=== PATIENT | male | born 1950 | race Caucasian/White ===

== ENCOUNTER 2017-04-04 20:45 | Outpatient (CLI) | payer MEDICARE, OTHER | END 2017-04-05 06:45 | disposition home or self-care (01) | DX: G47.33 Obstructive sleep apnea (adult) (pediatric) (principal) ==

== ENCOUNTER 2018-01-07 06:07 | Outpatient (CLI) | payer MEDICARE, OTHER ==
[~2018-01-07] VITALS: Ht 162.6 cm; Wt 99.8 kg
[2018-01-07] MEDS ORDERED: TAMS0.4C2 PO (16:16)
[2018-01-07] MEDS ORDERED: LISI10TA2 PO (16:16)
[2018-01-07] MEDS ORDERED: DICL75TA2 PO (16:16)
[2018-01-07] MEDS ORDERED: DILT300C57 PO (16:16)
[2018-01-07] MEDS ORDERED: MULT-35 PO (16:16)
== END 2018-01-07 16:21 ==
LOC: PREOP 06:07
PROVIDERS: ATTEND Surgery
DX: Z01.818 Encounter for other preprocedural examination (principal); R19.5 Other fecal abnormalities

== ENCOUNTER 2018-01-13 11:16 | Day surgery (SDC) | payer MEDICARE, OTHER ==
[~2018-01-13] VITALS: Ht 162.6 cm; Wt 99.8 kg
[~2018-01-13 11:16] MED LIST: DICL75TA2 PO; DILT300C57 PO; LISI10TA2 PO; MULT-35 PO; TAMS0.4C2 PO
[2018-01-13] MEDS ORDERED: NS IV 500 ML 500 ML IV ONE (12:15)
[2018-01-13 12:30] VITALS: BP 150/79
[2018-01-13] MEDS ORDERED: fentaNYL INJECTION 100 MCG/2 ML AMP ONE (12:48)
[2018-01-13] MEDS ORDERED: MIDAZOLAM 2 MG/2 ML (VERSED) VIAL ONE ×3 (12:48→12:49)
[2018-01-13] MEDS: MIDAZOLAM 2 MG/2 ML (VERSED) VIAL IVP PRN ×3 (13:24→13:30)
[2018-01-13] MEDS: fentaNYL INJECTION 100 MCG/2 ML AMP IVP PRN ×2 (13:25→13:28)
--- NOTE | 2018-01-13 13:44 | Endo Procedure Record ---
Endo Procedure Report Date of Procedure Last Colonoscopy: No Jan 13, 2018 Surgeon (s) KELLY CARROLL MD Post Procedure/Op Diagnosis Anal skin tags. Internal hemorrhoids. Very few sigmoid diverticula Procedure Performed Colonoscopy to cecum Description of Procedure Anesthesia Type: Conscious Sedation Specimen(s) collected/removed none Description of the Procedure Indication for the procedure: This gentleman was found to have a positive cologuard test. Therefore, he came in for colonoscopy. He denied any family history of colon cancer. Informed consent was obtained after reviewing the procedure in detail. Description of the procedure: He was placed in left lateral decubitus position and his vital signs were monitored. Conscious sedation was achieved using Versed and fentanyl. Examination of the perianal area revealed some large anal skin tags. Digital examination was otherwise unremarkable. The colonoscope was then introduced into the rectum and advanced all the way up to the cecum The quality of bowel preparation was rather suboptimal. I was however able to irrigate the mucosa and complete the examination. The scope was then withdrawn slowly and the mucosa examined in a systematic fashion. Findings: 1. Internal hemorrhoids and anal skin tags 2. Very few sigmoid diverticula. No polyps were found He tolerated the procedure well and was taken back to the nursing area in a stable condition. Impression: Positive Colocort test. No polyps found. Incidentally anal skin tags and internal hemorrhoids. KELLY CARROLL MD Jan 13, 2018 1:43 pm
--- NOTE | 2018-01-13 13:47 | Conscious Sedation/ASA ---
Conscious Sedation Pre-Proced Time Reviewed: 12:05 ASA Class: 2 Airway Mallampati Classification: (wichita appropriate class) I. II. III, IV Lungs Heart ASA score ASA 1: a normal healthy patient ASA 2: a patient with a mild systemic disease (mid diabetes, controlled hypertension, obesity ASA 3: a patient with a severe systemic disease that limits activity (angina , COPD, prior Myocardial infarction) ASA 4: a patient with an incapacitating disease that is a constant threat to life (CHF, renal failure) ASA 5: a moribund patient not expected to survive 24 hrs. (ruptured aneurysm) ASA 6: a declared brain patient whose organs are being harvested. For emergent operations, add the letter E after the classification Grade 2 Sedation Plan: Discussed options with patient/fam Note The patient is an appropriate candidate to undergo the planned procedure, sedation, and anesthesia. The patient immediately re-assessed prior to indication. KELLY CARROLL MD Jan 13, 2018 1:47 pm
--- NOTE | 2018-01-13 13:47 | History & Physicial ---
History of Present Illness History of Present Illness Reason for visit/HPI to undergo colonoscopy on the basis of a positive Cologuard test. Date of Admission 01/13/18 Date Seen by Provider: Jan 13, 2018 Time Seen by Provider: 12:10 I consulted on this patient on 01/13/18 13:44 Attending Physician Kelly Carroll MD Admitting Physician Radha Greene MD Consult Allergies and Home Medications Allergies Coded Allergies: No Known Drug Allergies (Unverified , 01/07/18) Home Medications Diclofenac Sodium 75 Mg Tablet.dr, 75 MG PO BID, (Reported) Diltiazem HCl 300 Mg Cap.er.24h, 300 MG PO DAILY, (Reported) Lisinopril 10 Mg Tablet, 10 MG PO DAILY, (Reported) Multivitamin 1 Each Tablet, 1 EACH PO DAILY, (Reported) Tamsulosin HCl 0.4 Mg Cap.er.24h, 0.4 MG PO DAILY, (Reported) Patient Home Medication List Home Medication List Reviewed: Yes Past Emmvkhd-Koaccb-Bfwnud Hx Patient Social History Marrital Status: Employed/Student: retired Recent Foreign Travel: No Contact w/other who traveled: No Recent Hopitalizations: No Seasonal Allergies Seasonal Allergies: No Surgeries Yes Tonsillectomy Respiratory No Currently Using CPAP: Yes Cardiovascular Yes Hypertension Neurological No Reproductive System Hx Reproductive Disorders: No Sexually Transmitted Disease: No HIV/AIDS: No Gastrointestinal Yes Chronic Diarrhea Musculoskeletal Yes Arthritis Endocrine History of Endocrine Disorders: No HEENT Loss of Vision: Bilateral Hearing Impairment: Hard of Hearing Cancer No Blood Transfusions Adverse Reaction to a Blood Tr: No (HAS BLOOD WITH NO REACTION) Constitutional: no symptoms reported EENTM: no symptoms reported Respiratory: no symptoms reported Cardiovascular: no symptoms reported Gastrointestinal: no symptoms reported Genitourinary: no symptoms reported Musculoskeletal: joint pain Skin: no symptoms reported Psychiatric/Neurological: No Symptoms Reported Physical Exam Vital Signs Capillary Refill : General Appearance: No Apparent Distress Respiratory: Lungs Clear Cardiovascular: Regular Rate, Rhythm Gastrointestinal: Non Tender, Soft Rectal: Deferred Extremity: Normal Inspection Neurologic/Psychiatric: Oriented x3 Skin: Warm/Dry Assessment/Plan Assessment and Plan gentleman to undergo colonoscopy Problems: Admission Diagnosis Admission Status: Other (Outpt Proc) KELLY CARROLL MD Jan 13, 2018 1:47 pm
--- NOTE | 2018-01-13 13:48 | Discharge Inst-Simple/Standard ---
Discharge Inst-Standard Discharge Medications New, Converted or Re-Newed RX: Other Patient Instructions/Follow Up Plan of Care/Instructions/FU: Follow-up with his primary Activity as Tolerated: Yes Discharge Diet: No Restrictions KELLY CARROLL MD Jan 13, 2018 1:48 pm
[2018-01-13 14:10] VITALS: BP 115/62
[2018-01-13 14:40] VITALS: BP 132/68
[2018-01-13 15:00] VITALS: BP 132/68
== END 2018-01-13 15:00 | disposition home or self-care (01) ==
LOC: ENDO 11:16
PROVIDERS: ATTEND Surgery
DX: K64.8 Other hemorrhoids (principal); K57.30 Diverticulosis of large intestine without perforation or abscess without bleeding; K64.4 Residual hemorrhoidal skin tags; I10 Essential (primary) hypertension

== ENCOUNTER → 2019-11-13 | Outpatient (CLI) | payer MEDICARE, OTHER ==
[~2019-11-13] MED LIST changes: -DILT300C57 PO; +DILT300C71 PO
== END ==
LOC: CARD 11:38
PROVIDERS: ATTEND Internal Medicine Cardiovascular Disease
DX: I10 Essential (primary) hypertension (principal); E78.2 Mixed hyperlipidemia; G47.33 Obstructive sleep apnea (adult) (pediatric); E66.9 Obesity, unspecified
CPT/HCPCS: 93306

== ENCOUNTER → 2021-07-21 | Outpatient (CLI) | payer MEDICARE, OTHER ==
[~2021-07-21] MED LIST changes: -LISI10TA2 PO; +LISI10TA25 PO
== END ==
LOC: LAB FS 10:20
PROVIDERS: ATTEND Orthopaedic Surgery
DX: Z01.812 Encounter for preprocedural laboratory examination (principal); Z20.822 Contact with and (suspected) exposure to COVID-19
CPT/HCPCS: 87635

== ENCOUNTER 2021-07-28 10:09 | Inpatient (IN) | payer MEDICARE, OTHER ==
[~2021-07-28] VITALS: Ht 160 cm; Wt 101.9 kg
[2021-07-28] MEDS ORDERED: LOPERAMIDE 2 MG (IMODIUM) TABLET PO PRN (10:45)
[2021-07-28] MEDS ORDERED: guaiFENesin/CODEINE (ROBITUSSIN AC) 10ML UDC PO PRN (10:45)
[2021-07-28] MEDS ORDERED: ONDANSETRON 4 MG (ZOFRAN) ORAL DISSOLVE TAB PO PRN (10:45)
[2021-07-28] MEDS ORDERED: LACTULOSE SYRUP 10GM/15ML (ENULOSE) 30ML UDC PO PRN (10:45)
[2021-07-28] MEDS ORDERED: BISACODYL 10 MG SUPP (DULCOLAX) PR PRN (10:45)
[2021-07-28] MEDS ORDERED: diphenhydrAMINE 25 MG TAB (BENADRYL) PO PRN (10:45)
[2021-07-28] MEDS ORDERED: ALPRAZolam 0.25 MG (XANAX) TAB PO PRN (10:45)
[2021-07-28] MEDS ORDERED: FLEET ENEMA ADULT 1 EA BTL PR PRN (10:45)
[2021-07-28] MEDS ORDERED: CALCIUM CARBONATE 500 MG (TUMS) TAB.CHEW PO PRN (10:45)
[2021-07-28] MEDS ORDERED: DOCUSATE SODIUM 100 MG (COLACE) CAP PO PRN (10:45)
--- NOTE | 2021-07-28 10:46 | PM&R Post Admission Assessment ---
PM&R HP Date of Visit: Jul 28, 2021 Time of Visit: 11:15 History of Present Illness Chief complaint: Lumbar spine surgery with subsequent debility History of present illness: This is a 71-year-old white male On License Of [facility] after uncomplicated spine surgery by Dr. Martinez. He did have urinary retention acute on chronic postop so after attempts for spontaneous voiding a Singer catheter was left indwelling with urology appointment next at 0945. Patient does have sleep apnea and appeared to be at risk for respiratory depression but upon assessment at [facility] where he was admitted for observation overnight septic work-up was negative along with ABG was normal without CO2 retention. No pneumonia on x-ray and no obstruction on abdominal films. He did have evidence of an early ileus which resolved this morning upon arrival to the rehab unit. We will advance his diet as tolerated. IV fluid has been very helpful in reversing the volume depletion and acute kidney injury with BUN of 47 creatinine 1.8 now its normal today. Prior level of functioning was ambulatory without assistive devices. We will continue medication for urinary retention and likely do voiding trial this weekend. Early UTI diagnosed at [facility] placed on Rocephin and transition to Omnicef. CC: Debility and mental confusion following back surgery HPI: 71 yo male w/ hx of HTN and arthritis presented to the rehab floor following back surgery on 07/24. Pt had L2-5 spinal fusion with human allograft placement for spinal stenosis and radiculopathy. Pt had been discharged from the hospital two days later and was ambulating well, with noted urinary retention. However, over the next day family members noted significant mental confusion and deterioration of mobility. The pt was admitted to [facility] yesterday before being admitted to rehab today. Pt is no longer mentally confused, follows PT commands well and seems to be interacting appropriately. Pt still in pain (02/15). PMH: HTN, chronic diarrhea, arthritis, hx spinal stenosis and radiculopathy, C PAP for JOEY PSH: back surgery (2008), carpal tunnel release, tonsillectomy, L2-5 spinal fusion with cages and allografts placed (07/24/21), CPAP for JOEY, bilat hip arthroplasty ALL: adverse rxn to morphine (suspected source of postop confusion) Meds: Item Value Date Time Diltiazem HCl 300 mg 07/29/21 0900 (Cardizem Cd 24 DAILY/PO Hr Capsule) Tamsulosin HCl 0.4 mg 07/28/21 2100 (Flomax Capsule) BID/PO Cefdinir 300 mg 07/28/21 2100 (Omnicef Capsule) BID/PO Atorvastatin 40 mg 07/28/21 2100 Calcium HS/PO (Lipitor Tablet) Senna 1 ea 07/28/21 2100 (Senokot S BID/PO Tablet) Polyethylene 17 gm 07/28/21 2100 Glycol BID/PO (Miralax 17 Gm Packet) Docusate Sodium 100 mg 07/28/21 2100 (Colace Capsule) BID/PO Phenazopyridine 200 mg 07/28/21 1800 HCl BID WITH MEALS/PO (Pyridium Tablet) Bethanechol 25 mg 07/28/21 1600 Chloride ACHS/PO (Urecholine Tablet) Acetaminophen 650 mg 07/28/21 1230 (Tylenol Tablet) Q4H PRN/PO Ondansetron HCl 4 mg 07/28/21 1045 (Zofran Oral Q6H PRN/PO Dissolve Tablet) Melatonin 3 mg 07/28/21 1045 (Melatonin HS PRN/PO Tablet) Loperamide HCl 2 mg 07/28/21 1045 (Imodium Tablet) PRN PRN/PO Guaifenesin/ 10 ml 07/28/21 1045 Codeine Phosphate Q4H PRN/PO (Robitussin Ac (Codeine) Syrup) Sodium 1 ea 07/28/21 1045 Biphosphate/ BID PRN/MI Sodium Phosphate (Fleet Enema Adult) Lactulose 10 gm 07/28/21 1045 (Enulose Oral BID PRN/PO Solution) Bisacodyl 10 mg 07/28/21 1045 (Dulcolax DAILY PRN/MI Suppository) Docusate Sodium 100 mg 07/28/21 1045 (Colace Capsule) BID PRN/PO Diphenhydramine 25 mg 07/28/21 1045 HCl Q6H PRN/PO (Benadryl Tablet) Calcium Carbonate 500 mg 07/28/21 1045 (Antacid TID PRN/PO Chewable Tablet) Alprazolam 0.25 mg 07/28/21 1045 (Xanax Tablet) Q8H PRN/PO 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; ; non-smoker; some alcohol use; no recreational drug use FH: mother- heart dx and diabetes; 2 healthy daughters; healthy brother ROS: no SOB; no chest pain, not feeling feverish, back and bilat hip pain Exam: alert and oriented x3; pain 5/5; heart RRR, lungs CTAB Images: N/A Labs: N/A Assessment: Debility following L2-L5 fusion with allograft and cage placement Pain following the back surgery (back and hip; 5/5 when asked) HTN (165/75) Urinary retention Plan: PT/OT for recuperation Tylenol for pain Continue Cefdinir for postop infxn prophylaxis Continue Tamsulosin for postop urinary retention Keep in touch w Dr. 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) Alcohol Use: Occasionally Uses Smoking Status: Former Smoker Recent Hopitalizations: No Seasonal Allergies Seasonal Allergies: No Past Medical History Surgeries: Orthopedic, Tonsillectomy Respiratory: Sleep Apnea Currently Using CPAP: Yes Cardiac: Hypertension Reproductive: No Sexually Transmitted Disease: No HIV/AIDS: No Genitourinary: Benign Prostatic Hyperpl Gastrointestinal: Chronic Diarrhea Musculoskeletal: Arthritis Loss of Vision: Bilateral Hearing Impairment: Hard of Hearing Adverse Reaction to Blood Del[place]: No (HAS BLOOD WITH NO REACTION) PM&R Allergy/Meds/Data Review Allergies Coded Allergies: morphine (Verified Allergy, Unknown, 07/28/21) LISTED ON JOSR DISCHARGE ORDERS Home Medications Scheduled Atorvastatin Calcium (Atorvastatin Calcium), 40 MG PO HS, (Reported) Cefdinir (Cefdinir), 300 MG PO BID, (Reported) Diltiazem HCl (Diltiazem 24Hr Cd), 300 MG PO DAILY, (Reported) Lactulose (Lactulose), 30 ML PO TID, (Reported) Phenazopyridine HCl (Pyridium), 200 MG PO BID, (Reported) Polyethylene Glycol 3350 (Miralax), 17 GM PO TID, (Reported) Sennosides/Docusate Sodium (Senna Plus 8.6-50 mg Tablet), 1 EACH PO DAILY, (Reported) Tamsulosin HCl (Flomax), 0.4 MG PO BID, (Reported) [Bethanechol], 25 MG PO QID, (Reported) Scheduled PRN Hydrocodone/Acetaminophen (Hydrocodone-Acetamin 10-325 mg), 2 EACH PO Q4H PRN for PAIN-MODERATE (5-7), (Reported) Discontinued Medications Diclofenac Sodium (Diclofenac Sodium), 75 MG PO BID, (Reported) Discontinued Reason: Duplicate Order Diltiazem HCl (Diltiazem 24Hr Cd), 300 MG PO DAILY, (Reported) Discontinued Reason: Duplicate Order Lisinopril (Lisinopril), 10 MG PO DAILY, (Reported) Discontinued Reason: Duplicate Order Multivitamin (Daily Multiple Vitamin), 1 EACH PO DAILY, (Reported) Discontinued Reason: Duplicate Order Tamsulosin HCl (Tamsulosin HCl), 0.4 MG PO DAILY, (Reported) Discontinued Reason: Duplicate Order Current Medications Current Medications Reviewed Review of Systems Constitutional: see HPI, malaise, weakness EENTM: no symptoms reported Respiratory: no symptoms reported Cardiovascular: no symptoms reported Gastrointestinal: constipation Genitourinary: decreased output, other (Retention) Musculoskeletal: back pain Skin: no symptoms reported Psychiatric/Neurological: No Symptoms Reported All Other Systems Reviewed Negative Unless Noted: Yes Physical Exam Physical Exam Vital Signs Capillary Refill : Height, Weight, BMI Height: 5'4.00" Weight: 220lbs. 0.0oz. 99.138764gk; 37.8 BMI Method: General Appearance: No Apparent Distress, WD/WN, Chronically ill, Obese Eyes: Bilateral Eye Normal Inspection, Bilateral Eye PERRL HEENT: PERRL/EOMI, Normal ENT Inspection, Pharynx Normal Neck: Full Range of Motion, Normal Inspection, Non Tender, Supple, Carotid Bruit Respiratory: Chest Non Tender, Lungs Clear, Normal Breath Sounds, No Accessory Muscle Use, No Respiratory Distress Cardiovascular: Regular Rate, Rhythm, No Edema, No Gallop, No JVD, No Murmur, Normal Peripheral Pulses Gastrointestinal: Normal Bowel Sounds, No Organomegaly, No Pulsatile Mass, Non Tender, Soft Back: Normal Inspection, No CVA Tenderness, No Vertebral Tenderness Extremity: Normal Capillary Refill, Normal Inspection, Normal Range of Motion, Non Tender, No Calf Tenderness, No Pedal Edema Neurologic/Psychiatric: Alert, Oriented x3, 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 Norm as Tested, Abnormal Gait, Depressed Affect, Motor Weakness (Lower extremities 4/5) Skin: Normal Color, Warm/Dry Lymphatic: No Adenopathy PM&R Medical Assessment & Plan REHAB/MEDICAL ASSESSMENT AND PLAN: REHAB IMPAIRMENT GROUP: Lumbar stenosis ETIOLOGIC DIAGNOSIS: Lumbar stenosis The comorbidities that impact the patients function and/or functional outcome by: JOEY on CPAP, obesity, early ileus, urinary retention requiring Singer, early UTI, acute kidney injury REHAB PLAN: The patient is being admitted to our comprehensive inpatient rehabilitation facility and can tolerate the intensity of service consisting of at least: 180 minutes of therapy a day, 5 out of 7 days a week Rehab treatment will consist of: PT and OT will focus on regaining function with the use of assistive devices and help regain independence in ADLs in order to return to independent living with The patient/family has a good understanding of our discharge process and will benefit from an interdisciplinary inpatient rehabilitation program. The patient has potential to make improvement and is in need of at least two of the following multidisciplinary therapies including but not limited to physical, occupational, speech, and prosthetics and orthotics. Additionally the patient will need services from respiratory, nutritional services, wound care, psychology, etc. (Customize this to each patient). Given the patients complex condition and risk of further medical complications, rehabilitation services cannot be safely or effectively provided at a lower level of care such as a long term facility. BARRIERS TO DISCHARGE: JOEY with urinary retention ESTIMATED LOS: 7 days DISPOSITION: Home with RELEVANT CHANGES SINCE PREADMISSION SCREENING: I have compared the patients medical and functional status at the time of the preadmission screening and there are: No changes PROGNOSIS: Good REHABILITATION GOALS: 1. PT and OT will focus on regaining function with the use of assistive devices and help regain independence in ADLs in order to return to independent living with All the above goals were reviewed with the patient and he/she is in agreement. By signing this document, I acknowledge that I have personally performed a full physical examination on this patient within 24 hours of admission to this inpatient rehabilitation facility and have determined the patient to be able to tolerate the above course of treatment at an intensive level for a reasonable period of time. I will be completing a detailed individualized Plan of Care for this patient by day #4 of the patients stay based upon the Preadmission Screen, the Post-Admission Evaluation, and the therapy evaluations. Admission Dx/Comorbidities: (1) Lumbar stenosis with neurogenic claudication ICD Codes: M48.062 - Spinal stenosis, lumbar region with neurogenic claudication (2) JOEY on CPAP ICD Codes: G47.33 - Obstructive sleep apnea (adult) (pediatric); Z99.89 - Dependence on other enabling machines and devices (3) Acute kidney injury ICD Codes: N17.9 - Acute kidney failure, unspecified (4) Dehydration ICD Codes: E86.0 - Dehydration (5) Ileus ICD Codes: K56.7 - Ileus, unspecified (6) Hypertension ICD Codes: I10 - Essential (primary) hypertension (7) Obesity ICD Codes: E66.9 - Obesity, unspecified Assessment/Plan Assessment and Plan Assess & Plan/Chief Complaint Assessment: Lumbar stenosis status post spine surgery on 07/24/[address] Martinez Acute on chronic urinary retention requiring indwelling catheter BPH Hypertension Status post acute kidney injury resolved with IV fluid at [facility] Altered mental status likely due to dehydration with pain medication Early ileus now resolved JOEY on CPAP High risk for respiratory depression and CO2 narcosis Plan: Inpatient rehab protocol Pain control Supportive care Bladder meds RHETT CAMPOS DO Jul 28, 2021 10:46
[2021-07-28] MEDS ORDERED: POLY17PO6 PO (11:23)
[2021-07-28] MEDS ORDERED: CEFD300C3 PO (11:23)
[2021-07-28] MEDS ORDERED: TMSL.4C PO ×2 (11:23)
[2021-07-28] MEDS ORDERED: PHEN-640 PO (11:23)
[2021-07-28] MEDS ORDERED: DILT300C51 PO ×2 (11:23)
[2021-07-28] MEDS ORDERED: BETHANECHOL PO ×2 (11:23)
[2021-07-28] MEDS ORDERED: SENN-259 PO (11:23)
[2021-07-28] MEDS ORDERED: ATOR40TA70 PO ×2 (11:23)
[2021-07-28] MEDS ORDERED: LACT10SO33 PO (11:23)
[2021-07-28] MEDS ORDERED: HYDR-3820 PO (11:23)
[2021-07-28 11:30] VITALS: BP 165/75
--- NOTE | 2021-07-28 11:59 | Physical Therapy Evaluation ---
PT Evaluation-General Medical Diagnosis Admission Date Jul 28, 2021 at 10:45 Medical Diagnosis: lumbar fusion L2-4 Onset Date: Jul 27, 2021 Therapy Diagnosis Therapy Diagnosis: impaired mobility, strength, endurance Height/Weight Height (Feet): 5 Height (Inches): 4.00 Weight (Pounds): 220 Weight (Ounces): 0.0 Referral Physician: Tabitha Gonzalez DO Reason for Referral: Evaluation/Treatment Medical History Additional Medical History Past Medical History Surgeries: Tonsillectomy Currently Using CPAP: Yes Cardiac: Hypertension Reproductive: No Sexually Transmitted Disease: No HIV/AIDS: No Gastrointestinal: Chronic Diarrhea Musculoskeletal: Arthritis Loss of Vision: Bilateral Hearing Impairment: Hard of Hearing Reviewed History: Yes Social History Home: Single Level Current Living Status: Spouse Entry Into Home: Stairs With Railing PT Steps Into Home: 2 Prior Prior Level of Function SCALE: Activities may be completed with or without assistive devices. 2-Imsvosmgzu-jzklfkr completes the activity by him/herself with no assistance from a helper. 5-Set-up or Clean-up Assistance-helper sets up or cleans up; patient completes activity. [place] assists only prior to or following the activity. 4-Supervision or Touching Assistance-helper provides verbal cues and/or touching/steadying and/or contact guard assistance as patient completes a ctivity. Assistance may be provided throughout the activity or intermittently. 3-Partial/Moderate Assistance-helper does LESS THAN HALF the effort. [place] lifts, holds or supports trunk or limbs, but provides less than half the effort. 2-Substantial/Maximal Assistance-helper does MORE THAN HALF the effort. [place] lifts or holds trunk or limbs and provides more than half the effort. 6-Wnhkivrii-skwtmk does ALL the effort. Patient does none of the effort to complete the activity. Or, the assistance of 2 or more helpers is required for the patient to complete the activity. If activity was not attempted, code reason: 7-Patient Refused. 9-Not Applicable-not attempted and the patient did not perform the activity before the current illness, exacerbation or injury. 10-Not Attempted due to Environmental Limitations-(lack of equipment, weather restraints, etc.). 88-Not Attempted due to Medical Conditions or Safety Concerns. Bed Mobility: 6 Transfers (B,C,W/C): 6 Gait: 6 Stairs: 6 Indoor Mobility (Ambulation): Independent Stairs: Independent PT Evaluation-Current Subjective Patient already in restroom pre tx, agrees to PT, has 8/10 pain in back, nurse notified. Will be co-treating with OT for part of tx due to poor patient mobility, strength, endurance, severe pain with activity, coordinate UE and LE with activity, safety and reduce risk of falls. Pt/Family Goals to be independent at home Objective Patient Orientation: Person, Confused (slight confusion), Place, Situation back brace ROM/Strength ROM Lower Extremities limited due to pain Strength Lower Extremities NT due to pain Sensory Vision: Wears Glasses Hearing: Impaired Sensation Right Lower Extremit: Intact Sensation Left Lower Extremity: Intact Transfers Roll Left & Right (QC): 3 Sit to Lying (QC): 3 Lying to Sitting/Side of Bed(Q: 3 Sit to Stand (QC): 4 Chair/Zgr-lv-Aoruq Xfer(QC): 4 Toilet Transfer (QC): 4 Car Transfer (QC): 3 Patient performs bed mobility and supine <-> sit mod assist, sit <-> stand and transfers CGA, car transfer mod assist. Patient needs simple cues for direction due to slight confusion. Cues for hand placement and positioning. Gait Does the Patient Walk?: Yes Mode of Locomotion: Walk Anticipated Mode of Locomotion: Walk Walk 10 feet (QC): 4 Walk 50 ft with 2 Turns(QC): 4 Walk 150 ft (QC): 88 Walking 10ft/uneven surface-QC: 88 Distance: 50'x2 Gait Assistive Device: FWW Comments/Gait Description Patient can ambulate 50' with a rolling walker with CGA (including 50' with at least 2 turns of 90 degrees). Patient cannot ambulate over an uneven surface at this time due to pain, and he slides his feet across the floor. He also keeps his walker too far in front and needs cues to keep it closer. Wheelchair Training Does the Pt Use a Wheelchair?: No Wheel 50 ft with 2 turns (QC): 9 Wheel 150 ft (QC): 9 Stairs 1 Step (curb) (QC): 88 4 Steps (QC): 88 12 Steps (QC): 88 No steps at this time due to severe pain with activity Balance Sitting Static: Fair Sitting Dynamic: Fair Standing Static: Fair Standing Dynamic: Fair Picking up an Object (QC): 88 Treatment Patient had a BM two different times. He needs assist with wiping and pants. PT performed bed mobility and transfers, ambulation, toileting, standing during cleaning and dressing, OT performed cleaning and dressing, UE positioning and safety during activity. Assessment/Needs Patient in recliner post tx with nurse call, phone, tray, family in room. Patient has impaired mobility, strength, endurance. Needs mod assist for supine to sit but just CGA for transfers and ambulation. He has severe pain this morning. Rehab Potential: Fair PT Short Term Goals Short Term Goals Time Frame: Aug 04, 2021 Roll Left & Right: 3 (Jovany) Sit to lyin (Jovany) Lying to sitting on side of be: 3 (Jovany) Sit to stand: 4 Chair/dur-jd-hkmxd transfer: 4 Walk 10 feet: 4 Walk 50 feet with two turns: 4 Walk 150 feet: 4 PT Assisted Goals Assisted Goals PT Elastic Tape Inserter Goals Time Frame: Aug 18, 2021 Roll Left & Right (QC): 4 (SBA) Sit to Lying (QC): 4 (SA) Lying-Sitting on Side/Bed(QC): 4 (SBA) Sit to Stand (QC): 5 Chair/Keh-hi-Xpbpp Xfer(QC): 5 Toilet Transfer (QC): 5 Car Transfer (QC): 3 (Jovany) Does the Patient Walk: Yes Walk 10 feet (QC): 5 Walk 50ft with 2 Turns (QC): 5 Walk 150 ft (QC): 5 Walking 10ft on Uneven Surface: 4 1 Step (curb) (QC): 4 4 Steps (QC): 4 12 Steps (QC): 88 Picking up an Object (QC): 88 Wheel 50 feet with 2 turns (QC: 9 Wheel 150 feet: 9 PT Plan Problem List Problem List: Activity Tolerance, Functional Strength, Safety, Balance, Gait, Transfer, Bed Mobility, ROM Treatment/Plan Treatment Plan: Continue Plan of Care Treatment Plan: Bed Mobility, Education, Functional Activity Anthony, Functional Strength, Group Therapy, Gait, Safety, Therapeutic Exercise, Transfers Treatment Duration: Aug 18, 2021 Frequency: At least 5 of 7 days/Wk (IRF) Estimated Hrs Per Day: 1.5 hours per day Patient and/or Family Agrees t: Yes Safety Risks/Education Patient Education: Gait Training, Transfer Techniques, Reviewed Precautions, Correct Positioning, Safety Issues Teaching Recipient: Patient Teaching Methods: Demonstration, Discussion Response to Teaching: Reinforcement Needed Discharge Recommendations Plan Patient will perform bed mobility and transfer training,balance and endurance training, functional strengthening, stair training, gait training, and education, to improve functional mobility and independence at home. Therapy Discharge Recommendati: Scheduled Assistance, Home & Family, Post Acute PT Time/GCodes Time In: 1100 Time Out: 1200 Total Billed Treatment Time: 50 Total Billed Treatment 1 visit EVM 10' FA 40' PT eval from [id number], OT eval from [id number], co-treat from [id number] MICHELLE COHEN PT Jul 28, 2021 11:59
[2021-07-28] MEDS ORDERED: NON-FORMULARY MEDICATION 1 EA EA ([Bethanechol] 25 MG) PO SCH (13:00)
--- NOTE | 2021-07-28 13:21 | Occupational Therapy Eval ---
OT Evaluation-General/PLF Medical Diagnosis Admission Date Jul 28, 2021 at 10:45 Medical Diagnosis: lumbar fusion L2-4 Onset Date: Jul 27, 2021 Therapy Diagnosis Therapy Diagnosis: Impaired adls, balance, strength, rom, endurance, mobility Height/Weight Height (Feet): 5 Height (Inches): 4.00 Weight (Pounds): 220 Weight (Ounces): 0.0 Precautions Precautions/Isolations: Standard Precautions Referral Physician: Tabitha Gonzalez DO Referral Reason: Evaluation/Treatment Medical History Pertinent Medical History: Arthritis, HTN Additional Medical History chronic diarrhea Current History Pt with lumbar fusion L2-L4. reports they went home post surgery and the next day she was unable to get pt out of bed. She called her daughter to assist. Pt continued to become confused, was not able to comprehend simple directions, and could barely stand. Prior to admission, Pt required assist with LB bathing UB dressing. 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 He still drives. completes all IADLs. Reviewed History: Yes Social History Home: Single Level Current Living Status: Spouse Entry Into Home: Stairs With Railing Steps Into Home: 2 ADL-Prior Level of Function SCALE: Activities may be completed with or without assistive devices. 5-Wyvjzownnf-qwmejef completes the activity by him/herself with no assistance from a helper. 5-Set-up or Clean-up Assistance-helper sets up or cleans up; patient completes activity. [place] assists only prior to or following the activity. 4-Supervision or Touching Assistance-helper provides verbal cues and/or touching/steadying and/or contact guard assistance as patient completes activity. Assistance may be provided throughout the activity or intermittently. 3-Partial/Moderate Assistance-helper does LESS THAN HALF the effort. [place] lifts, holds or supports trunk or limbs, but provides less than half the effort. 2-Substantial/Maximal Assistance-helper does MORE THAN HALF the effort. [place] lifts or holds trunk or limbs and provides more than half the effort. 2-Lgajhluln-xfdhwe does ALL the effort. Patient does none of the effort to complete the activity. Or, the assistance of 2 or more helpers is required for the patient to complete the activity. If activity was not attempted, code reason: 7-Patient Refused. 9-Not Applicable-not attempted and the patient did not perform the activity before the current illness, exacerbation or injury. 10-Not Attempted due to Environmental Limitations-(lack of equipment, weather restraints, etc.). 88-Not Attempted due to Medical Conditions or Safety Concerns. Self Care: Needed Some Help Functional Cognition: Needed Some Help DME/Equipment: Shower, Tall Toilet built in shower seat Drive Self: Yes OT Current Status Subjective Pt having difficult time comprehending pain scale. With simplification, he reports pain as 7/10. Later, reports that pt was unable to comprehend 0-10 pain scale at last hospital and they instead gave him a 0-5 pain scale rating. Appearance Pt left sleeping in recliner at OT departure. in room. Mental Status/Objective Patient Orientation: Person Attachments: Singer Catheter, IV Current Glasses/Contacts: Yes Hearing Aids: Yes Dentures/Partials: No Hand Dominance: Right Upper Extremity ROM Danielito shoulder: ~90 degrees. Elbow-distally: WFL reports this is baseline. Upper Extremity Strength not tested due to recent surgery and spinal precautions. ADL-Treatment Eating (QC): 5 Oral Hygiene (QC): 4 Shower/Bathe Self (QC): 2 Upper Body Dressing (QC): 2 Lower Body Dressing (QC): 2 On/Off Footwear (QC): 1 Toileting Hygiene (QC): 2 Pt sitting on toilet at OT arrival. He reports that he received 2 laxatives prior to arrival. Pt with large amounts of liquid stool and required multiple trips to the bathroom (x4). RN informed. Pt attempted to perform jeremias care, but unable to reach, thus assist required. Min a for balance as he stood to manage shorts over hips. With each clothing management task, pt would attempt to pull back brace either up or down instead of his shorts. Min a needed to position hand on shorts each time in order to keep brace donned. Sponge bath performed seated in recliner. Pt often needing cues for initiating and sequencing through task. He is unable to perform figure 4 method to reach feet. Dep to wash below knees (baseline). Pt would benefit from instruction on AE for both LB dressing and bathing tasks in effort to reduce burden of care on and to ensure adherence to spinal precautions. Dep to thread BLE's into brief/shorts after effortful attempt. Pt attempted to don button up shirt in standing. Initially he had shirt twisted and attempted to bring over his head. Limited Shoulder ROM prevented ability to bring overhead or to pull shirt around back of torso. He required assist with 3/4 steps, did not require assist with buttoning. Pt often needing simplification and repetition of commands throughout session. Poor sequencing and awareness to safety. Pt can be impulsive at times and will stand without warning. Education OT Patient Education: Correct positioning, Disease process, Instructions don/doff splint/brace, Instructions to caregiver, Modified ADL techniques, Progress toward Goal/Update tx plan, Purpose of tx/functional activities, Reviewed precautions, Rehab process, Safety issues, Transfer techniques, Use of adapted equipment Teaching Recipient: Patient, Family Teaching Methods: Demonstration, Discussion Response to Teaching: Unable to Return Demonstration, Reinforcement Needed OT Short Term Goals Short Term Goals Time Frame: Aug 04, 2021 Eatin Oral hygiene: 4 Toileting hygiene: 3 Shower/bathe self: 3 Upper body dressin Lower body dressin Putting on/taking off footwear: 3 OT Group Home Goals Group Home Goals Time Frame: Aug 18, 2021 Eating (QC): 6 Oral Hygiene (QC): 6 Toileting Hygiene (QC): 6 Shower/Bathe Self (QC): 4 Upper Body Dressing (QC): 3 Lower Body Dressing (QC): 5 On/Off Footwear (QC): 5 1=Demonstrate adherence to instructed precautions during ADL tasks. 2=Patient will verbalize/demonstrate understanding of assistive devices/modifications for ADL. 3=Patient will improve strength/tolerance for activity to enable patient to perform ADL's. OT Education/Plan Problem List/Assessment Assessment: Decreased Activ Tolerance, Decreased Safety Aware, Decreased UE Strength, Impaired Bed Mobility, Impaired Cognition, Impaired Funct Balance, Impaired Self-Care Skills, Restricted Funct UE ROM Discharge Recommendations Plan/Recommendations: Continue POC Equpiment Recommendations-D/C: Rails on Tub/Shower, Bath Chair, Back End Developer, Sock Aide Treatment Plan/Plan of Care Treatment,Training & Education: Yes Patient would benefit from OT for education, treatment and training to promote independence in ADL's, mobility, safety and/or upper extremity function for ADL's. Plan of Care: ADL Retraining, Functional Mobility, Group Exercise/Act as Ind, Orthotic Fitting/Training, UE Funct Exercise/Act Treatment Duration: Aug 18, 2021 Frequency: At least 5 of 7 days/Wk (IRF) Estimated Hrs Per Day: 1.5 hours per day Rehab Potential: Fair Time/GCodes Start Time: 11:10 Stop Time: 12:40 Total Time Billed (hr/min): 90 Billed Treatment Time 1 visit, EVM (10 min) ADL x3 (50 min) FA x2 (30 min) PT eval from [id number], OT eval from [id number], co-treat from [id number] OT treatment [id number] Zeina Gaitan OT Jul 28, 2021 13:21
--- NOTE | 2021-07-28 15:41 | Physical Therapy Daily Note ---
PT Daily Note-Current Subjective Patient lying supine in bed upon PT arrival, agreeable to treatment. Patient has family in the room upon PT arrival, and they report that the patients left hip is severely arthritic and causes him great pain with all movements. Reports he will be having surgery on the left hip once he has recovered from the Lumbar surgery. Mental Status Patient Orientation: Person Attachments: Singer Catheter Transfers SCALE: Activities may be completed with or without assistive devices. 5-Uueyitijgt-mmeyhhp completes the activity by him/herself with no assistance from a helper. 5-Set-up or Clean-up Assistance-helper sets up or cleans up; patient completes activity. [place] assists only prior to or following the activity. 4-Supervision or Touching Assistance-helper provides verbal cues and/or touching/steadying and/or contact guard assistance as patient completes act ivity. Assistance may be provided throughout the activity or intermittently. 3-Partial/Moderate Assistance-helper does LESS THAN HALF the effort. [place] lifts, holds or supports trunk or limbs, but provides less than half the effort. 2-Substantial/Maximal Assistance-helper does MORE THAN HALF the effort. [place] lifts or holds trunk or limbs and provides more than half the effort. 3-Ekjsqrucc-runddj does ALL the effort. Patient does none of the effort to complete the activity. Or, the assistance of 2 or more helpers is required for the patient to complete the activity. If activity was not attempted, code reason: 7-Patient Refused. 9-Not Applicable-not attempted and the patient did not perform the activity before the current illness, exacerbation or injury. 10-Not Attempted due to Environmental Limitations-(lack of equipment, weather restraints, etc.). 88-Not Attempted due to Medical Conditions or Safety Concerns. Roll Left & Right (QC): 3 Sit to Lying (QC): 3 Lying to Sitting/Side of Bed(Q: 3 Sit to Stand (QC): 3 Chair/Omp-nh-Ovoun Xfer(QC): 3 Gait Training Does the Patient Walk?: Yes Distance: 70 feet x 2 Walk 10 feet (QC): 4 Walk 50 ft with 2 Turns(QC): 4 Gait Persons Needed: 1 Gait Assistive Device: FWW Patient ambulates with moderate forward trunk posture, tends to keep the FWW too far from his body and is unable to correct with verbal and tactile cues. Exercises Supine Ex: Ankle pumps, Quad Set, Glut sets, Heel Slides, Short Arc Quads, Straight leg raise, Hip abd/add Supine Reps: 20 NuStep Minutes: 6 NuStep Workload: 1 Treatments Visit, Gait, Ex (2) Assessment Current Status: Fair Progress Patient tolerated treatment fair. Patient performs LE therapeutic exercise as listed above. Patient performs all bed mobility and transfers with min/mod A and verbal cues for safety. Patient ambulates 70 feet x 2 with FWW, with min A and verbal cues for safety, progression, balance and posture. Patient ambulates with moderate forward trunk posture, tends to keep the FWW too far from his body and is unable to correct with verbal and tactile cues. Patient in bed post treatment with all needs met, nursing notified, call light in hand and family in the room. PT Short Term Goals Short Term Goals Time Frame: Aug 04, 2021 Roll Left & Right: 3 (Jovany) Sit to lyin (Jovany) Lying to sitting on side of be: 3 (Jovany) Sit to stand: 4 Chair/dau-xj-eqprn transfer: 4 Walk 10 feet: 4 Walk 50 feet with two turns: 4 Walk 150 feet: 4 PT Senior Care Goals Senior Care Goals PT Senior Care Goals Time Frame: Aug 18, 2021 Roll Left & Right (QC): 4 (SBA) Sit to Lying (QC): 4 (SA) Lying-Sitting on Side/Bed(QC): 4 (SBA) Sit to Stand (QC): 5 Chair/Dpa-nf-Eibxo Xfer(QC): 5 Toilet Transfer (QC): 5 Car Transfer (QC): 3 (Jovany) Does the Patient Walk: Yes Walk 10 feet (QC): 5 Walk 50ft with 2 Turns (QC): 5 Walk 150 ft (QC): 5 Walking 10ft on Uneven Surface: 4 1 Step (curb) (QC): 4 4 Steps (QC): 4 12 Steps (QC): 88 Picking up an Object (QC): 88 Wheel 50 feet with 2 turns (QC: 9 Wheel 150 feet: 9 PT Plan Treatment/Plan Treatment Plan: Continue Plan of Care Treatment Plan: Bed Mobility, Education, Functional Activity Anthony, Functional Strength, Group Therapy, Gait, Safety, Therapeutic Exercise, Transfers Treatment Duration: Aug 18, 2021 Frequency: At least 5 of 7 days/Wk (IRF) Estimated Hrs Per Day: 1.5 hours per day Patient and/or Family Agrees t: Yes Safety Risks/Education Patient Education: Gait Training, Transfer Techniques, Reviewed Precautions Teaching Recipient: Patient, Family Teaching Methods: Demonstration, Discussion Response to Teaching: Verbalize Understanding, Return Demonstration Time/GCodes Time In: 1455 Time Out: 1540 Total Billed Treatment Time: 45 Total Billed Treatment Visit, Clementina Martin (2) GROVER AVILEZ PT Jul 28, 2021 15:41
--- NOTE | 2021-07-28 15:51 | Progress Note ---
USMAN LYNCH 07/28/21 1551: Progress Note CC: Debility and mental confusion following back surgery HPI: 71 yo male w/ hx of HTN and arthritis presented to the rehab floor following back surgery on 07/24. Pt had L2-5 spinal fusion with human allograft placement for spinal stenosis and radiculopathy. Pt had been discharged from the hospital two days later and was ambulating well, with noted urinary retention. However, over the next day family members noted significant mental confusion and deterioration of mobility. The pt was admitted to [facility] yesterday before being admitted to rehab today. Pt is no longer mentally confused, follows PT commands well and seems to be interacting appropriately. Pt still in pain (02/15). PMH: HTN, chronic diarrhea, arthritis, hx spinal stenosis and radiculopathy, CPAP for JOEY PSH: back surgery (2008), carpal tunnel release, tonsillectomy, L2-5 spinal fusion with cages and allografts placed (07/24/21), CPAP for JOEY, bilat hip arthroplasty ALL: adverse rxn to morphine (suspected source of postop confusion) Meds: Item Value Date Time Diltiazem HCl 300 mg 07/29/21 0900 (Cardizem Cd 24 DAILY/PO Hr Capsule) Tamsulosin HCl 0.4 mg 07/28/21 2100 (Flomax Capsule) BID/PO Cefdinir 300 mg 07/28/21 2100 (Omnicef Capsule) BID/PO Atorvastatin 40 mg 07/28/21 2100 Calcium HS/PO (Lipitor Tablet) Senna 1 ea 07/28/21 2100 (Senokot S BID/PO Tablet) Polyethylene 17 gm 07/28/21 2100 Glycol BID/PO (Miralax 17 Gm Packet) Docusate Sodium 100 mg 07/28/21 2100 (Colace Capsule) BID/PO Phenazopyridine 200 mg 07/28/21 1800 HCl BID WITH MEALS/PO (Pyridium Tablet) Bethanechol 25 mg 07/28/21 1600 Chloride ACHS/PO (Urecholine Tablet) Acetaminophen 650 mg 07/28/21 1230 (Tylenol Tablet) Q4H PRN/PO Ondansetron HCl 4 mg 07/28/21 1045 (Zofran Oral Q6H PRN/PO Dissolve Tablet) Melatonin 3 mg 07/28/21 1045 (Melatonin HS PRN/PO Tablet) Loperamide HCl 2 mg 07/28/21 1045 (Imodium Tablet) PRN PRN/PO Guaifenesin/ 10 ml 07/28/21 1045 Codeine Phosphate Q4H PRN/PO (Robitussin Ac (Codeine) Syrup) Sodium 1 ea 07/28/21 1045 Biphosphate/ BID PRN/PA Sodium Phosphate (Fleet Enema Adult) Lactulose 10 gm 07/28/21 1045 (Enulose Oral BID PRN/PO Solution) Bisacodyl 10 mg 07/28/21 1045 (Dulcolax DAILY PRN/PA Suppository) Docusate Sodium 100 mg 07/28/21 1045 (Colace Capsule) BID PRN/PO Diphenhydramine 25 mg 07/28/21 1045 HCl Q6H PRN/PO (Benadryl Tablet) Calcium Carbonate 500 mg 07/28/21 1045 (Antacid TID PRN/PO Chewable Tablet) Alprazolam 0.25 mg 07/28/21 1045 (Xanax Tablet) Q8H PRN/PO 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; ; non-smoker; some alcohol use; no recreational drug use FH: mother- heart dx and diabetes; 2 healthy daughters; healthy brother ROS: no SOB; no chest pain, not feeling feverish, back and bilat hip pain Exam: alert and oriented x3; pain 5/5; heart RRR, lungs CTAB Images: N/A Labs: N/A Assessment: Debility following L2-L5 fusion with allograft and cage placement Pain following the back surgery (back and hip; 5/5 when asked) HTN (165/75) Urinary retention Plan: PT/OT for recuperation Tylenol for pain Continue Cefdinir for postop infxn prophylaxis Continue Tamsulosin for postop urinary retention Keep in touch w Dr. Martinez who performed the surgery (f/u in 2 weeks) TABITHA CAMPOS DO 07/29/21 9716: Supervisory-Addendum Brief Verification & Attestation Participated in pt care: history, MDM, physical Personally performed: exam, history, MDM, supervision of care Care discussed with: Medical Student Procedures: n/a Results interpretation: Verified all documentation Verification and Attestation of Medical Student E/M Service A medical student performed and documented this service in my presence. I reviewed and verified all information documented by the medical student and made modifications to such information, when appropriate. I personally performed the physical exam and medical decision making. Tabitha Campos, Jul 29, 2021,05:34 USMAN LYNCH Jul 28, 2021 15:51 TABITHA CAMPOS DO Jul 29, 2021 05:34
[2021-07-28] MEDS: BETHANECHOL 25 MG (URECHOLINE) TAB PO SCH ×2 (15:55→21:59)
[2021-07-28] MEDS: ACETAMINOPHEN 325 MG TABLET PO PRN ×2 (15:55→21:59)
[2021-07-28] MEDS: PHENAZOPYRIDINE 100 MG (PYRIDIUM) TABLET PO SCH (18:07)
[2021-07-28 20:00] VITALS: BP 149/74
[2021-07-28] MEDS: DOCUSATE SODIUM 100 MG (COLACE) CAP PO SCH (20:07)
[2021-07-28] MEDS: polyethylene glycoL POWDER 17 GM (MIRALAX) PACK PO SCH (20:08)
[2021-07-28] MEDS: SENNA W/DOCUSATE (SENOKOT S) TABLET PO SCH (20:08)
[2021-07-28] MEDS ORDERED: PHENAZOPYRIDINE HCL 200 MG PO SCH (21:00)
[2021-07-28] MEDS: TAMSULOSIN 0.4 MG (FLOMAX) CAP PO SCH (21:59)
[2021-07-28] MEDS: CEFDINIR 300 MG (OMNICEF) CAP PO SCH (21:59)
[2021-07-28] MEDS: MELATONIN 3 MG TABLET PO PRN (22:00)
[2021-07-29] MEDS: BETHANECHOL 25 MG (URECHOLINE) TAB PO SCH ×4 (06:31→21:50)
[2021-07-29] MEDS: ACETAMINOPHEN 325 MG TABLET PO PRN ×2 (06:31→11:33)
[2021-07-29] MEDS: PHENAZOPYRIDINE 100 MG (PYRIDIUM) TABLET PO SCH ×2 (08:06→17:37)
[2021-07-29] MEDS: CEFDINIR 300 MG (OMNICEF) CAP PO SCH ×2 (08:06→21:49)
[2021-07-29] MEDS: TAMSULOSIN 0.4 MG (FLOMAX) CAP PO SCH ×2 (08:06→21:49)
[2021-07-29 08:07] VITALS: BP 157/70
--- NOTE | 2021-07-29 08:32 | Physical Therapy Daily Note ---
PT Daily Note-Current Subjective Patient in recliner pre tx, agrees to PT, has 5/10 back pain, nurse in room and hears this. Appearance Patient in recliner post tx with nurse call, phone, tray, all needs met. Mental Status Patient Orientation: Person, Place, Situation back brace Transfers SCALE: Activities may be completed with or without assistive devices. 5-Jlbmqmieln-sgmcsny completes the activity by him/herself with no assistance from a helper. 5-Set-up or Clean-up Assistance-helper sets up or cleans up; patient completes activity. [place] assists only prior to or following the activity. 4-Supervision or Touching Assistance-helper provides verbal cues and/or touching/steadying and/or contact guard assistance as patient completes activity. Assistance may be provided throughout the activity or intermittently. 3-Partial/Moderate Assistance-helper does LESS THAN HALF the effort. [place] lifts, holds or supports trunk or limbs, but provides less than half the effort. 2-Substantial/Maximal Assistance-helper does MORE THAN HALF the effort. [place] lifts or holds trunk or limbs and provides more than half the effort. 6-Qbhewikkl-tgfmem does ALL the effort. Patient does none of the effort to complete the activity. Or, the assistance of 2 or more helpers is required for the patient to complete the activity. If activity was not attempted, code reason: 7-Patient Refused. 9-Not Applicable-not attempted and the patient did not perform the activity before the current illness, exacerbation or injury. 10-Not Attempted due to Environmental Limitations-(lack of equipment, weather restraints, etc.). 88-Not Attempted due to Medical Conditions or Safety Concerns. Sit to Stand (QC): 4 Chair/Iml-dw-Kijnu Xfer(QC): 4 Gait Training Distance: 120'x2 Walk 10 feet (QC): 4 Walk 50 ft with 2 Turns(QC): 4 Gait Persons Needed: 1 Gait Assistive Device: FWW slow but steady ambulation Exercises Seated Therapy Exercises: Ankle pumps, Long arc quads, Hip flexion Seated Reps: 20 (pain with hip flexion) Treatments transfers, ambulation, LE exercise Assessment Current Status: Fair Progress more steady during ambulation, less confusion PT Short Term Goals Short Term Goals Time Frame: Aug 04, 2021 Roll Left & Right: 3 (Jovany) Sit to lyin (Jovany) Lying to sitting on side of be: 3 (Jovany) Sit to stand: 4 Chair/tcm-fe-bbnpi transfer: 4 Walk 10 feet: 4 Walk 50 feet with two turns: 4 Walk 150 feet: 4 PT Signal Tester Goals Signal Tester Goals PT Signal Tester Goals Time Frame: Aug 18, 2021 Roll Left & Right (QC): 4 (SBA) Sit to Lying (QC): 4 (SA) Lying-Sitting on Side/Bed(QC): 4 (SBA) Sit to Stand (QC): 5 Chair/Zkx-dz-Jkdsp Xfer(QC): 5 Toilet Transfer (QC): 5 Car Transfer (QC): 3 (Jovany) Does the Patient Walk: Yes Walk 10 feet (QC): 5 Walk 50ft with 2 Turns (QC): 5 Walk 150 ft (QC): 5 Walking 10ft on Uneven Surface: 4 1 Step (curb) (QC): 4 4 Steps (QC): 4 12 Steps (QC): 88 Picking up an Object (QC): 88 Wheel 50 feet with 2 turns (QC: 9 Wheel 150 feet: 9 PT Plan Problem List Problem List: Activity Tolerance, Functional Strength, Safety, Balance, Gait, Transfer, Bed Mobility, ROM Treatment/Plan Treatment Plan: Continue Plan of Care Treatment Plan: Bed Mobility, Education, Functional Activity Anthony, Functional Strength, Group Therapy, Gait, Safety, Therapeutic Exercise, Transfers Treatment Duration: Aug 18, 2021 Frequency: At least 5 of 7 days/Wk (IRF) Estimated Hrs Per Day: 1.5 hours per day Patient and/or Family Agrees t: Yes Safety Risks/Education Patient Education: Gait Training, Transfer Techniques, Correct Positioning, Safety Issues Teaching Recipient: Patient Teaching Methods: Demonstration, Discussion Response to Teaching: Reinforcement Needed Time/GCodes Time In: 0800 Time Out: 0820 Total Billed Treatment Time: 20 Total Billed Treatment 1 visit GT 20' MICHELLE COHEN PT Jul 29, 2021 08:32
[2021-07-29] MEDS: SENNA W/DOCUSATE (SENOKOT S) TABLET PO SCH ×2 (09:39→20:03)
[2021-07-29] MEDS: DOCUSATE SODIUM 100 MG (COLACE) CAP PO SCH ×2 (09:39→20:02)
[2021-07-29] MEDS: polyethylene glycoL POWDER 17 GM (MIRALAX) PACK PO SCH ×2 (09:39→20:02)
--- NOTE | 2021-07-29 10:21 | Individualized Plan of Care ---
Individualized Plan of Care Rehab Nursing IPOC Order Admission Date Jul 28, 2021 at 10:45 Current Orders Orders Admission Order(Inpt,Obs,Sdc) (07/28/21 10:41) Vital Signs: Per Unit Policy ( ,16,00 (07/28/21 10:41) Jay Bo (07/28/21 10:41) Sequential Compression Device .admit (07/28/21 10:41) Carpenter Supervisor [employer]-Inpt Rehab Con (07/28/21 10:41) Rehab Nursing Orders-Ipoc (07/28/21 10:41) Physical Therapy Rehab Orders (07/28/21 10:41) Occupational Therapy Rehab Ord (07/28/21 10:41) Speech Therapy Rehab Orders (07/28/21 10:41) Precautions (Aru) (07/28/21 10:41) Rehab-Intensity Of Therapy (07/28/21 10:41) Initiate Admission Nursing Pro .admission (07/28/21 10:41) Alprazolam Tablet (Xanax Tablet) (07/28/21 10:45) Calcium Carbonate Chew Tablet (Antacid C (07/28/21 10:45) Diphenhydramine Tablet (Benadryl Tablet) (07/28/21 10:45) Docusate Sodium Capsule (Colace Capsule) (07/28/21 21:00) Docusate Sodium Capsule (Colace Capsule) (07/28/21 10:45) Bisacodyl Suppository (Dulcolax Supposit (07/28/21 10:45) Lactulose Oral Solution (Enulose Oral So (07/28/21 10:45) Na Phos/Na Biphos Enema (Fleet Enema [place] (07/28/21 10:45) Guaifenesin/Codeine Syrup (Robitussin Ac (07/28/21 10:45) Loperamide Tablet (Imodium Tablet) (07/28/21 10:45) Melatonin Tablet (Melatonin Tablet) (07/28/21 10:45) Polyethylene Glycol Powder Pkt (Miralax (07/28/21 21:00) Ondansetron Oral Dissolve Tab (Zofran (07/28/21 10:45) Senna S Tablet (Senokot S Tablet) (07/28/21 21:00) Initiate Admission Nursing Pro .admission (07/28/21 10:41) Code/Resuscitation (07/28/21 10:41) Admission Arrival Bed Request (07/28/21 11:30) General/Regular (07/28/21 Lunch) Atorvastatin Tablet (Lipitor Tablet) (07/28/21 21:00) Cefdinir Capsule (Omnicef Capsule) (07/28/21 21:00) Diltiazem Cd 24 Hr Capsule (Cardizem Cd (07/29/21 09:00) Tamsulosin Capsule (Flomax Capsule) (07/28/21 21:00) (Nf) Phenazopyridine Hcl (Pyridium) (07/28/21 21:00) (Nf) [Bethanechol] (07/28/21 13:00) Acetaminophen Tablet/Caplet (Tylenol T (07/28/21 12:30) Bethanechol Tablet (Urecholine Tablet) (07/28/21 16:00) Phenazopyridine Tablet (Pyridium Tablet) (07/28/21 18:00) Patient Visit (07/28/21 ) Pt Eval Moderate Complexity (07/28/21 ) Functional Activities, Ea 15 (07/28/21 ) Patient Visit (07/28/21 ) Exercise Therap, Ea 15 Min (07/28/21 ) Gait Training, Ea 15 Min (07/28/21 ) Cbc With Automated Diff (07/29/21 10:22) Comprehensive Metabolic Panel (07/29/21 10:22) Patient Visit (07/28/21 ) Gait Training, Ea 15 Min (07/28/21 ) Hydrocodone/Apap 5/325 Tablet (Lortab 5 (07/29/21 13:00) Iv [place]-Discontinue (Order) (07/29/21 13:32) Intake & Output 06,14,22 (07/29/21 17:24) Catheter(Urinary) Discontinue (07/29/21 19:10) Rehab Nursing Orders: Ongoing Assess. of Cognitive Status, Ongoing Assess. of Function Status, Bladder Management, Bladder Scan, Bladder Training, Bowel Management, Bowel Training, Disease Management & Educaiton, DVT Prophylaxis, Fall Prevention, Fluid/Electrolyte/Nutrition Mgmt, Infection Prevention, Medication Management & Education, Management of Risks & Complications, Management of Skin Intergrity, Nutrition Management, Pain Management, Patie nt/Family Support, Safety Management, Wound Management Intensity of Therapy to be met Patient to be seen: Min.3h per day/5 of 7d PT IPOC Problem List: Activity Tolerance, Functional Strength, Safety, Balance, Gait, Transfer, Bed Mobility, ROM Treatment Plan: Continue Plan of Care Bed Mobility, Education, Functional Activity Anthony, Functional Strength, Group Therapy, Gait, Safety, Therapeutic Exercise, Transfers Treatment Duration: Aug 18, 2021 Frequency: At least 5 of 7 days/Wk (IRF) Estimated Hrs Per Day: 1.5 hours per day OT IPOC Problems: Decreased Activ Tolerance, Decreased Safety Aware, Decreased UE Strength, Impaired Bed Mobility, Impaired Cognition, Impaired Funct Balance, Impaired Self-Care Skills, Restricted Funct UE ROM OT Treatment, Training and Edu: Yes Plan of Care: ADL Retraining, Functional Mobility, Group Exercise/Act as Ind, Orthotic Fitting/Training, UE Funct Exercise/Act Treatment Duration: Aug 18, 2021 Frequency: At least 5 of 7 days/Wk (IRF) Estimated Hrs Per Day: 1.[address] IPOC Speech Therapy Treatment Plan: Modify Plan, See Comments Treatment Duration: Jul 28, 2021 Frequency: Modified Program (IRF) Estimated Hrs Per Day: Other Carpenter Supervisor [employer]/Case Mgmt Carpenter Supervisor [employer]/Case Managemen: Discharge Planning Dietitian/Set Painter Dietitian/Set Painter to monitor nutritional status and make changes and/or recommendations as needed and work with speech pathology on dietary upgrades as the occur. Physician IPOC Medical Issues being managed closely and that require the 24 hour availability of a physician: Patient with recent complex spine surgery who failed at home with altered mental status and high risk for respiratory failure will need close monitoring to prevent decompensation Medical Issues: Bowel/Bladder Function, DVT Prophylaxis, Falls Precautions, Fluid/Electrolyte/Nutrition Balance, Infection Protection, Pain Management Brief Synthesis of Preadmission Screen, Post-Admission Evaluation, and Therapy Evaluations: PT and OT will focus on ambulatory function with assistive devices in order to ambulate and prevent falls and increase ADLs and independence in order to return back to independent living with spouse Medical Prognosis: Good Anticipated Length of Stay: 7 days RHETT CAMPOS DO Jul 29, 2021 10:21
--- NOTE | 2021-07-29 10:21 | PM&R Progress Note ---
Subjective HPI/CC On Admission Date Seen by Provider: Jul 29, 2021 Time Seen by Provider: 13:00 Subjective/Events-last exam 07/29/2021: Patient doing very well Had 2 BMs today We will try voiding trial tomorrow discontinue catheter Flomax and Pyridium and Urecholine maintained for past 6 days Family at the bedside Moving around well Review of Systems General: Fatigue Genitourinary: Retention Musculoskeletal: back pain Objective Exam Vital Signs Vital Signs Date Time Temp Pulse Resp B/P (MAP) Pulse Ox O2 Delivery O2 Flow Rate FiO2 07/30/21 02:36 37.0 07/29/21 21:00 95 Room Air 07/29/21 20:00 71 22 154/74 (100) Capillary Refill : General Appearance: No Apparent Distress, WD/WN, Chronically ill, Obese HEENT: PERRL/EOMI, Normal ENT Inspection, Pharynx Normal Neck: Full Range of Motion, Normal Inspection, Non Tender, Supple, Carotid Bruit Respiratory: Chest Non Tender, Lungs Clear, Normal Breath Sounds, No Accessory Muscle Use, No Respiratory Distress Cardiovascular: Regular Rate, Rhythm, No Edema, No Gallop, No JVD, No Murmur, Normal Peripheral Pulses Gastrointestinal: Normal Bowel Sounds, No Organomegaly, No Pulsatile Mass, Non Tender, Soft Back: Normal Inspection, No CVA Tenderness, No Vertebral Tenderness Extremity: Normal Capillary Refill, Normal Inspection, Normal Range of Motion, Non Tender, No Calf Tenderness, No Pedal Edema Neurologic/Psychiatric: Alert, Oriented x3, 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 FIM Transfers Therapy Code Descriptions/Definitions Functional [place] Measure: 0=Not Assessed/NA 4=Minimal Assistance 1=Total Assistance 5=Supervision or Setup 2=Maximal Assistance 6=Modified [place] 3=Moderate Assistance 7=Complete IndependenceSCALE: Activities may be completed with or without assistive devices. 6-Eunddfxiop-hhsmlro completes the activity by him/herself with no assistance from a helper. 5-Set-up or Clean-up Assistance-helper sets up or cleans up; patient completes activity. [place] assists only prior to or following the activity. 4-Supervision or Touching Assistance-helper provides verbal cues and/or touching/steadying and/or contact guard assistance as patient completes activity. Assistance may be provided throughout the activity or intermittently. 3-Partial/Moderate Assistance-helper does LESS THAN HALF the effort. [place] lifts, holds or supports trunk or limbs, but provides less than half the effort. 2-Substantial/Maximal Assistance-helper does MORE THAN HALF the effort. [place] lifts or holds trunk or limbs and provides more than half the effort. 4-Hoxqnmmal-qoloxe does ALL the effort. Patient does none of the effort to complete the activity. Or, the assistance of 2 or more helpers is required for the patient to complete the activity. If activity was not attempted, code reason: 7-Patient Refused. 9-Not Applicable-not attempted and the patient did not perform the activity before the current illness, exacerbation or injury. 10-Not Attempted due to Environmental Limitations-(lack of equipment, weather restraints, etc.). 88-Not Attempted due to Medical Conditions or Safety Concerns. Roll Left to Right (QC): 3 Sit to Lying (QC): 3 Sit to Stand (QC): 4 Chair/Inh-cd-Yyijz Xfer(QC): 4 Car Transfer (QC): 3 Gait Training Does the Patient Walk?: Yes Distance: 120'x2 Walk 10 feet (QC): 4 Walk 50 ft with 2 Turns(QC): 4 Walk 150 ft (QC): 88 Walking 10ft/uneven surface-QC: 88 Gait Persons Needed: 1 Gait Assistive Device: FWW Wheelchair Training Does the Pt Use a Wheelchair?: No Wheel 50 ft with 2 turns (QC): 9 Wheel 150 ft (QC): 9 Stair Training 1 Step (curb) (QC): 88 4 Steps (QC): 88 12 Steps (QC): 88 Balance Picking up an Object (QC): 88 ADL-Treatment Eating (QC): 5 Oral Hygiene (QC): 4 Shower/Bathe Self (QC): 2 Upper Body Dressing (QC): 2 Lower Body Dressing (QC): 2 On/Off Footwear (QC): 1 Toileting Hygiene (QC): 2 Assessment/Plan Assessment and Plan Assess & Plan/Chief Complaint Assessment: Lumbar stenosis status post spine surgery on 07/24/[address] Martinez Acute on chronic urinary retention requiring indwelling catheter BPH Hypertension Status post acute kidney injury resolved with IV fluid at [facility] Altered mental status likely due to dehydration with pain medication Early ileus now resolved JOEY on CPAP High risk for respiratory depression and CO2 narcosis Plan: Inpatient rehab protocol Pain control Supportive care Bladder meds 07/29/2021: Voiding trial tomorrow Monitor closely Continue treatment (1) Lumbar stenosis with neurogenic claudication (2) JOEY on CPAP (3) Acute kidney injury (4) Dehydration (5) Ileus (6) Hypertension (7) Obesity RHETT CAMPOS DO Jul 29, 2021 10:21
[2021-07-29 10:46] LABS: BASOPHILS % (AUTO) 0 % (0-10); EOSINOPHILS # (AUTO) 0.2 10^3/uL (0.0-0.3); EOSINOPHILS % (AUTO) 2 % (0-10); HEMATOCRIT 39 % (40-54); HEMOGLOBIN 13.1 g/dL (13.3-17.7); LYMPHOCYTES # (AUTO) 1.1 10^3/uL (1.0-4.0); LYMPHOCYTES % (AUTO) 11 % (12-44); MEAN CORPUSCULAR HEMOGLOBIN 33 pg (25-34); MEAN CORPUSCULAR HGB CONC 34 g/dL (32-36); MEAN CORPUSCULAR VOLUME 98 fL (80-99); MEAN PLATELET VOLUME 8.8 fL (9.0-12.2); MONOCYTES # (AUTO) 1.9 10^3/uL (0.0-1.0); MONOCYTES % (AUTO) 18 % (0-12); NEUTROPHILS # (AUTO) 7.1 10^3/uL (1.8-7.8); NEUTROPHILS % (AUTO) 68 % (42-75); PLATELET COUNT 327 10^3/uL (130-400); WHITE BLOOD COUNT 10.4 10^3/uL (4.3-11.0)
[2021-07-29 11:02] LABS: ALBUMIN 3.7 GM/DL (3.2-4.5); POTASSIUM 3.5 MMOL/L (3.6-5.0)
[2021-07-29 11:08] LABS: CREATININE SERUM 0.81 MG/DL (0.60-1.30)
[2021-07-29] MEDS: HYDROcodone/APAP 5 MG/325 MG (LORTAB) TAB PO PRN ×2 (15:46→19:59)
[2021-07-29 20:00] VITALS: BP 154/74
[2021-07-29] MEDS: MELATONIN 3 MG TABLET PO PRN (21:50)
[2021-07-30] MEDS: HYDROcodone/APAP 5 MG/325 MG (LORTAB) TAB PO PRN ×5 (01:48→20:33)
--- NOTE | 2021-07-30 06:42 | PM&R Progress Note ---
Subjective HPI/CC On Admission Date Seen by Provider: Jul 30, 2021 Time Seen by Provider: 13:00 Subjective/Events-last exam 07/30/21: Patient doing well Singer was out and he was able to void We will get post void residual and evaluate if he still retaining Bowels did move today but has moved a lot recently after ileus resolved 07/29/2021: Patient doing very well Had 2 BMs today We will try voiding trial tomorrow discontinue catheter Flomax and Pyridium and Urecholine maintained for past 6 days Family at the bedside Moving around well Review of Systems General: Fatigue, Malaise Musculoskeletal: back pain, leg pain Objective Exam Vital Signs Vital Signs Date Time Temp Pulse Resp B/P (MAP) Pulse Ox O2 Delivery O2 Flow Rate FiO2 07/31/21 01:30 37.0 07/30/21 21:00 Room Air 07/30/21 19:39 69 20 181/76 (111) 96 Capillary Refill : General Appearance: No Apparent Distress, WD/WN, Chronically ill, Obese HEENT: PERRL/EOMI, Normal ENT Inspection, Pharynx Normal Neck: Full Range of Motion, Normal Inspection, Non Tender, Supple, Carotid Bruit Respiratory: Chest Non Tender, Lungs Clear, Normal Breath Sounds, No Accessory Muscle Use, No Respiratory Distress Cardiovascular: Regular Rate, Rhythm, No Edema, No Gallop, No JVD, No Murmur, Normal Peripheral Pulses Gastrointestinal: Normal Bowel Sounds, No Organomegaly, No Pulsatile Mass, Non Tender, Soft Back: Normal Inspection, No CVA Tenderness, No Vertebral Tenderness Extremity: Normal Capillary Refill, Normal Inspection, Normal Range of Motion, Non Tender, No Calf Tenderness, No Pedal Edema Neurologic/Psychiatric: Alert, Oriented x3, 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 FIM Transfers Therapy Code Descriptions/Definitions Functional [place] Measure: 0=Not Assessed/NA 4=Minimal Assistance 1=Total Assistance 5=Supervision or Setup 2=Maximal Assistance 6=Modified [place] 3=Moderate Assistance 7=Complete IndependenceSCALE: Activities may be completed with or without assistive devices. 2-Uoribmdmtr-bjgqqsl completes the activity by him/herself with no assistance from a helper. 5-Set-up or Clean-up Assistance-helper sets up or cleans up; patient completes activity. [place] assists only prior to or following the activity. 4-Supervision or Touching Assistance-helper provides verbal cues and/or touching/steadying and/or contact guard assistance as patient completes activity. Assistance may be provided throughout the activity or intermittently. 3-Partial/Moderate Assistance-helper does LESS THAN HALF the effort. [place] lifts, holds or supports trunk or limbs, but provides less than half the effort. 2-Substantial/Maximal Assistance-helper does MORE THAN HALF the effort. [place] lifts or holds trunk or limbs and provides more than half the effort. 8-Dujgsxdvo-thwkge does ALL the effort. Patient does none of the effort to complete the activity. Or, the assistance of 2 or more helpers is required for the patient to complete the activity. If activity was not attempted, code reason: 7-Patient Refused. 9-Not Applicable-not attempted and the patient did not perform the activity before the current illness, exacerbation or injury. 10-Not Attempted due to Environmental Limitations-(lack of equipment, weather restraints, etc.). 88-Not Attempted due to Medical Conditions or Safety Concerns. Roll Left to Right (QC): 3 Sit to Lying (QC): 3 Sit to Stand (QC): 4 Chair/Ipv-rt-Orjft Xfer(QC): 4 Car Transfer (QC): 3 Gait Training Does the Patient Walk?: Yes Distance: 120'x2 Walk 10 feet (QC): 4 Walk 50 ft with 2 Turns(QC): 4 Walk 150 ft (QC): 88 Walking 10ft/uneven surface-QC: 88 Gait Persons Needed: 1 Gait Assistive Device: FWW Wheelchair Training Does the Pt Use a Wheelchair?: No Wheel 50 ft with 2 turns (QC): 9 Wheel 150 ft (QC): 9 Stair Training 1 Step (curb) (QC): 88 4 Steps (QC): 88 12 Steps (QC): 88 Balance Picking up an Object (QC): 88 ADL-Treatment Eating (QC): 5 Oral Hygiene (QC): 4 Shower/Bathe Self (QC): 2 Upper Body Dressing (QC): 2 Lower Body Dressing (QC): 2 On/Off Footwear (QC): 1 Toileting Hygiene (QC): 2 Assessment/Plan Assessment and Plan Assess & Plan/Chief Complaint Assessment: Lumbar stenosis status post spine surgery on 07/24/[address] Martinez Acute on chronic urinary retention requiring indwelling catheter BPH Hypertension Status post acute kidney injury resolved with IV fluid at [facility] Altered mental status likely due to dehydration with pain medication Early ileus now resolved JOEY on CPAP High risk for respiratory depression and CO2 narcosis Plan: Inpatient rehab protocol Pain control Supportive care Bladder meds 07/29/2021: Voiding trial tomorrow Monitor closely Continue treatment 07/30/21: Monitor back pain BM regimen Monitor voiding (1) Lumbar stenosis with neurogenic claudication (2) JOEY on CPAP (3) Acute kidney injury (4) Dehydration (5) Ileus (6) Hypertension (7) Obesity RHETT CAMPOS DO Jul 30, 2021 06:41
[2021-07-30] MEDS: BETHANECHOL 25 MG (URECHOLINE) TAB PO SCH ×4 (06:47→20:33)
[2021-07-30 07:14] VITALS: BP 176/84
[2021-07-30] MEDS: DOCUSATE SODIUM 100 MG (COLACE) CAP PO SCH ×3 (07:54→20:33)
[2021-07-30] MEDS: SENNA W/DOCUSATE (SENOKOT S) TABLET PO SCH ×3 (07:54→20:33)
[2021-07-30] MEDS: polyethylene glycoL POWDER 17 GM (MIRALAX) PACK PO SCH ×3 (07:54→20:35)
[2021-07-30] MEDS: PHENAZOPYRIDINE 100 MG (PYRIDIUM) TABLET PO SCH ×2 (08:46→17:43)
[2021-07-30] MEDS: CEFDINIR 300 MG (OMNICEF) CAP PO SCH ×2 (08:46→20:33)
[2021-07-30] MEDS: TAMSULOSIN 0.4 MG (FLOMAX) CAP PO SCH ×2 (08:46→20:33)
[2021-07-30] MEDS: ACETAMINOPHEN 325 MG TABLET PO PRN (14:52)
[2021-07-30 19:39] VITALS: BP 181/76
[2021-07-30] MEDS: MELATONIN 3 MG TABLET PO PRN (20:33)
[2021-07-31] MEDS: HYDROcodone/APAP 5 MG/325 MG (LORTAB) TAB PO PRN ×5 (01:00→20:53)
[2021-07-31 06:02] LABS: BASOPHILS % (AUTO) 1 % (0-10); EOSINOPHILS # (AUTO) 0.3 10^3/uL (0.0-0.3); EOSINOPHILS % (AUTO) 4 % (0-10); HEMATOCRIT 35 % (40-54); HEMOGLOBIN 11.9 g/dL (13.3-17.7); LYMPHOCYTES # (AUTO) 1.3 10^3/uL (1.0-4.0); LYMPHOCYTES % (AUTO) 17 % (12-44); MEAN CORPUSCULAR HEMOGLOBIN 32 pg (25-34); MEAN CORPUSCULAR HGB CONC 34 g/dL (32-36); MEAN CORPUSCULAR VOLUME 95 fL (80-99); MEAN PLATELET VOLUME 8.9 fL (9.0-12.2); MONOCYTES % (AUTO) 13 % (0-12); NEUTROPHILS % (AUTO) 66 % (42-75); PLATELET COUNT 347 10^3/uL (130-400); WHITE BLOOD COUNT 7.7 10^3/uL (4.3-11.0)
[2021-07-31 06:21] LABS: ALBUMIN 3.3 GM/DL (3.2-4.5); POTASSIUM 3.6 MMOL/L (3.6-5.0)
[2021-07-31 06:22] LABS: CALCIUM 9.3 MG/DL (8.5-10.1)
[2021-07-31 06:23] LABS: TOTAL PROTEIN 6.2 GM/DL (6.4-8.2)
[2021-07-31 06:25] LABS: BILIRUBIN,TOTAL 0.8 MG/DL (0.1-1.0)
[2021-07-31 06:27] LABS: CREATININE SERUM 0.74 MG/DL (0.60-1.30)
[2021-07-31] MEDS: BETHANECHOL 25 MG (URECHOLINE) TAB PO SCH ×4 (06:27→20:52)
[2021-07-31 07:23] VITALS: BP 161/75
[2021-07-31] MEDS: CEFDINIR 300 MG (OMNICEF) CAP PO SCH ×2 (08:06→20:51)
[2021-07-31] MEDS: PHENAZOPYRIDINE 100 MG (PYRIDIUM) TABLET PO SCH ×2 (08:07→18:28)
[2021-07-31] MEDS: TAMSULOSIN 0.4 MG (FLOMAX) CAP PO SCH ×2 (08:07→20:53)
[2021-07-31] MEDS: DOCUSATE SODIUM 100 MG (COLACE) CAP PO SCH ×2 (08:07→20:52)
[2021-07-31] MEDS: polyethylene glycoL POWDER 17 GM (MIRALAX) PACK PO SCH ×2 (08:35→21:04)
[2021-07-31] MEDS: SENNA W/DOCUSATE (SENOKOT S) TABLET PO SCH ×2 (08:35→21:04)
--- NOTE | 2021-07-31 08:59 | PM&R Progress Note ---
Subjective HPI/CC On Admission Date Seen by Provider: Jul 31, 2021 Time Seen by Provider: 09:00 Subjective/Events-last exam 07/31/21: Patient doing very well More lucid and brighter today Voiding well and PVR no residual Lortab given and doesn't help much with his legs but he had major issues with overuse of Lortab Labs good 07/30/21: Patient doing well Singer was out and he was able to void We will get post void residual and evaluate if he still retaining Bowels did move today but has moved a lot recently after ileus resolved 07/29/2021: Patient doing very well Had 2 BMs today We will try voiding trial tomorrow discontinue catheter Flomax and Pyridium and Urecholine maintained for past 6 days Family at the bedside Moving around well Review of Systems General: Fatigue Musculoskeletal: back pain, leg pain Objective Exam Vital Signs Vital Signs Date Time Temp Pulse Resp B/P (MAP) Pulse Ox O2 Delivery O2 Flow Rate FiO2 07/31/21 21:00 Room Air 07/31/21 20:04 36.8 71 16 152/70 (97) 95 Capillary Refill : General Appearance: No Apparent Distress, WD/WN, Chronically ill, Obese HEENT: PERRL/EOMI, Normal ENT Inspection, Pharynx Normal Neck: Full Range of Motion, Normal Inspection, Non Tender, Supple, Carotid Bruit Respiratory: Chest Non Tender, Lungs Clear, Normal Breath Sounds, No Accessory Muscle Use, No Respiratory Distress Cardiovascular: Regular Rate, Rhythm, No Edema, No Gallop, No JVD, No Murmur, Normal Peripheral Pulses Gastrointestinal: Normal Bowel Sounds, No Organomegaly, No Pulsatile Mass, Non Tender, Soft Back: Normal Inspection, No CVA Tenderness, No Vertebral Tenderness Extremity: Normal Capillary Refill, Normal Inspection, Normal Range of Motion, Non Tender, No Calf Tenderness, No Pedal Edema Neurologic/Psychiatric: Alert, Oriented x3, outside parts salesman II-XII Norm as Tested, Abnormal Gait, Depressed Affect, Motor Weakness (Lower extremities 4/5) Skin: Normal Color, Warm/Dry Lymphatic: No Adenopathy Results/Procedures Lab Laboratory Tests 07/31/21 05:40 Patient resulted labs reviewed. FIM Transfers Therapy Code Descriptions/Definitions Functional [place] Measure: 0=Not Assessed/NA 4=Minimal Assistance 1=Total Assistance 5=Supervision or Setup 2=Maximal Assistance 6=Modified [place] 3=Moderate Assistance 7=Complete IndependenceSCALE: Activities may be completed with or without assistive devices. 4-Wotjtkmxst-idudgnr completes the activity by him/herself with no assistance from a helper. 5-Set-up or Clean-up Assistance-helper sets up or cleans up; patient completes activity. [place] assists only prior to or following the activity. 4-Supervision or Touching Assistance-helper provides verbal cues and/or touching/steadying and/or contact guard assistance as patient completes activity. Assistance may be provided throughout the activity or intermittently. 3-Partial/Moderate Assistance-helper does LESS THAN HALF the effort. [place] lifts, holds or supports trunk or limbs, but provides less than half the effort. 2-Substantial/Maximal Assistance-helper does MORE THAN HALF the effort. [place] lifts or holds trunk or limbs and provides more than half the effort. 9-Kgihurhpn-wmcidc does ALL the effort. Patient does none of the effort to complete the activity. Or, the assistance of 2 or more helpers is required for the patient to complete the activity. If activity was not attempted, code reason: 7-Patient Refused. 9-Not Applicable-not attempted and the patient did not perform the activity before the current illness, exacerbation or injury. 10-Not Attempted due to Environmental Limitations-(lack of equipment, weather restraints, etc.). 88-Not Attempted due to Medical Conditions or Safety Concerns. Roll Left to Right (QC): 3 Sit to Lying (QC): 3 Sit to Stand (QC): 4 Chair/Equ-qv-Rtgzc Xfer(QC): 4 Car Transfer (QC): 3 Gait Training Does the Patient Walk?: Yes Distance: 120'x2 Walk 10 feet (QC): 4 Walk 50 ft with 2 Turns(QC): 4 Walk 150 ft (QC): 88 Walking 10ft/uneven surface-QC: 88 Gait Persons Needed: 1 Gait Assistive Device: FWW Wheelchair Training Does the Pt Use a Wheelchair?: No Wheel 50 ft with 2 turns (QC): 9 Wheel 150 ft (QC): 9 Stair Training 1 Step (curb) (QC): 88 4 Steps (QC): 88 12 Steps (QC): 88 Balance Picking up an Object (QC): 88 ADL-Treatment Eating (QC): 5 Oral Hygiene (QC): 4 Shower/Bathe Self (QC): 2 Upper Body Dressing (QC): 2 Lower Body Dressing (QC): 2 On/Off Footwear (QC): 1 Toileting Hygiene (QC): 2 Assessment/Plan Assessment and Plan Assess & Plan/Chief Complaint Assessment: Lumbar stenosis status post spine surgery on 07/24/[address] Martinez Acute on chronic urinary retention requiring indwelling catheter BPH Hypertension Status post acute kidney injury resolved with IV fluid at [facility] Altered mental status likely due to dehydration with pain medication Early ileus now resolved JOEY on CPAP High risk for respiratory depression and CO2 narcosis Plan: Inpatient rehab protocol Pain control Supportive care Bladder meds 07/29/2021: Voiding trial tomorrow Monitor closely Continue treatment 07/30/21: Monitor back pain BM regimen Monitor voiding 07/31/21: Monitor progress Voiding well Back pain managed (1) Lumbar stenosis with neurogenic claudication (2) JOEY on CPAP (3) Acute kidney injury (4) Dehydration (5) Ileus (6) Hypertension (7) Obesity RHETT CAMPOS DO Jul 31, 2021 08:59
--- NOTE | 2021-07-31 08:59 | Occupational Ther Daily Note ---
OT Current Status-Daily Note Subjective Pt sitting EOB, just received breakfast. No c/o pain. Pt agrees to therapy. Mental Status/Objective Patient Orientation: Person, Place, Time, Situation Attachments: Other-See Comments (Lumbar/sacral brace) ADL-Treatment 1st session ([id number]): Pt independent with eating, sets own self up and uses regular utensils to eat. Pt agrees to sponge bath, declines shower. Pt educated on donning/doffing back brace, verbal/physical cues required for pt to complete. Pt ambulated to bathroom and sat at sink to complete sponge bath after set up. Supervision and education while completing sponge bath for lower body dressing AE. Pt demonstrated independence for sock aide, required physical/verbal cues to use dressing stick. Pt uses LH sponge to cleanse feet and lower legs educated on technique to dry feet to adhere to back precautions. SBA while pt stood to cleanse jeremias area/buttocks. Pt educated on using dressing stick to don underwear and pants, min A to thread over feet then pt able to s tand with SBA while hiking own pants. Pt able to slide shoes on feet while in sitting. Verbal cues to don back brace. Pt ambulated back to bed using FWW. Mod A to go from EOB to supine. After therapy, pt lying bed with call light/phone in reach. All needs met in room. Therapy Code Descriptions/Definitions Functional [place] Measure: 0=Not Assessed/NA 4=Minimal Assistance 1=Total Assistance 5=Supervision or Setup 2=Maximal Assistance 6=Modified [place] 3=Moderate Assistance 7=Complete IndependenceSCALE: Activities may be completed with or without assistive devices. 8-Umdkahfast-vvlkkrn completes the activity by him/herself with no assistance from a helper. 5-Set-up or Clean-up Assistance-helper sets up or cleans up; patient completes activity. [place] assists only prior to or following the activity. 4-Supervision or Touching Assistance-helper provides verbal cues and/or touching/steadying and/or contact guard assistance as patient completes activity. Assistance may be provided throughout the activity or intermittently. 3-Partial/Moderate Assistance-helper does LESS THAN HALF the effort. [place] lifts, holds or supports trunk or limbs, but provides less than half the effort. 2-Substantial/Maximal Assistance-helper does MORE THAN HALF the effort. [place] lifts or holds trunk or limbs and provides more than half the effort. 5-Ltfhdjggg-dpfbna does ALL the effort. Patient does none of the effort to complete the activity. Or, the assistance of 2 or more helpers is required for the patient to complete the activity. If activity was not attempted, code reason: 7-Patient Refused. 9-Not Applicable-not attempted and the patient did not perform the activity before the current illness, exacerbation or injury. 10-Not Attempted due to Environmental Limitations-(lack of equipment, weather restraints, etc.). 88-Not Attempted due to Medical Conditions or Safety Concerns. Eating (QC): 6 Oral Hygiene (QC): 6 (sitting at sink, pt completes independently.) Bathing Location: L Arm, R Arm, L Upper Leg, R Upper Leg, L Lower Leg (including foot), R Lower Leg (including foot), Chest, Abdomen, Buttocks, Perineal Area Shower/Bathe Self (QC): 4 (SBA) Upper Body Dressing (QC): 5 Lower Body Dressing (QC): 3 (mod A) On/Off Footwear: 5 Other Treatment 2nd session([id number]): Supine to EOB, independent with bed rails and HOB elevated. Verbal and physical cues to don/doff back brace. After set up, pt dons shoes by self. Pt ambulated to therapy gym using FWW with CGA for safety. Pt completed arm bike for 15 min at 15 trejo resistance with slow rotation and no recovery breaks to increase B UE strength for daily functional tasks. Pt then ambulated back to room using FWW and sat on EOB. Pt educated on leg bench chemist to assist with EOB to supine. After therapy, pt sitting EOB with call light/phone in reach. present in room. All needs met. Education OT Patient Education: Instructions don/doff splint/brace, Use of adapted equipment Teaching Recipient: Patient Teaching Methods: Demonstration, Discussion Response to Teaching: Verbalize Understanding, Return Demonstration, Reinforcement Needed OT Short Term Goals Short Term Goals Time Frame: Aug 04, 2021 Eatin Oral hygiene: 4 Toileting hygiene: 3 Shower/bathe self: 3 Upper body dressin Lower body dressin Putting on/taking off footwear: 3 OT [facility] Goals Nutter Up Goals Time Frame: Aug 18, 2021 Eating (QC): 6 Oral Hygiene (QC): 6 Toileting Hygiene (QC): 6 Shower/Bathe Self (QC): 4 Upper Body Dressing (QC): 3 Lower Body Dressing (QC): 5 On/Off Footwear (QC): 5 1=Demonstrate adherence to instructed precautions during ADL tasks. 2=Patient will verbalize/demonstrate understanding of assistive devices/modifications for ADL. 3=Patient will improve strength/tolerance for activity to enable patient to perform ADL's. OT Education/Plan Problem List/Assessment Assessment: Impaired Bed Mobility, Impaired Self-Care Skills Discharge Recommendations Plan/Recommendations: Continue POC Treatment Plan/Plan of Care Patient would benefit from OT for education, treatment and training to promote independence in ADL's, mobility, safety and/or upper extremity function for ADL's. Plan of Care: ADL Retraining, Functional Mobility, Group Exercise/Act as Ind, Orthotic Fitting/Training, UE Funct Exercise/Act Treatment Duration: Aug 18, 2021 Frequency: At least 5 of 7 days/Wk (IRF) Estimated Hrs Per Day: 1.5 hours per day Rehab Potential: Fair Time/GCodes Start Time: 07:00 (1300) Stop Time: 08:00 (1330) Total Time Billed (hr/min): 90 Billed Treatment Time 1 visit([id number])-ADL 4 (60 min) 1 visit([id number])-FA 1 (10 min) EX 1 (20 min) VICTOR MANUEL NEGRO Jul 31, 2021 08:59
--- NOTE | 2021-07-31 09:55 | Physical Therapy Daily Note ---
PT Daily Note-Current Subjective Pt in bed upon arrival and agrees to tx. Pt states pain 10/10, but says he already has been given a pain pill. RN notified. Throughout tx, pt states pain in lower back, B hips, B knees, and R forearm. Pain Numeric Pain Scale: 10-Worst Possible Pain Mental Status Patient Orientation: Person, Place, Time, Situation Transfers SCALE: Activities may be completed with or without assistive devices. 8-Lfgtsyrkhb-fuwtlkj completes the activity by him/herself with no assistance from a helper. 5-Set-up or Clean-up Assistance-helper sets up or cleans up; patient completes activity. [place] assists only prior to or following the activity. 4-Supervision or Touching Assistance-helper provides verbal cues and/or to angel/steadying and/or contact guard assistance as patient completes activity. Assistance may be provided throughout the activity or intermittently. 3-Partial/Moderate Assistance-helper does LESS THAN HALF the effort. [place] lifts, holds or supports trunk or limbs, but provides less than half the effort. 2-Substantial/Maximal Assistance-helper does MORE THAN HALF the effort. [place] lifts or holds trunk or limbs and provides more than half the effort. 1-Zzrilwszf-llwqoh does ALL the effort. Patient does none of the effort to complete the activity. Or, the assistance of 2 or more helpers is required for the patient to complete the activity. If activity was not attempted, code reason: 7-Patient Refused. 9-Not Applicable-not attempted and the patient did not perform the activity before the current illness, exacerbation or injury. 10-Not Attempted due to Environmental Limitations-(lack of equipment, weather restraints, etc.). 88-Not Attempted due to Medical Conditions or Safety Concerns. Roll Left & Right (QC): 4 Sit to Lying (QC): 3 Lying to Sitting/Side of Bed(Q: 4 Sit to Stand (QC): 4 VC given to keep precautions. ModA sit to supine to A LE into bed. Gait Training Does the Patient Walk?: Yes Distance: 150', 75' Walk 10 feet (QC): 4 Walk 50 ft with 2 Turns(QC): 4 Walk 150 ft (QC): 4 Gait Persons Needed: 1 Gait Assistive Device: FWW Pt has slow, antalgic gait. VC and TC given to keep closer to FWW, but pt kept pushing it farther away from him Exercises Standing: Hip Abduction, Hamstring curls, Heel/toe raises, Marching, Mini squats, Retro gait, Sit to Stand Standing Reps: 10 NuStep Minutes: 10 NuStep Workload: 1 Treatments Pt supine to sit and sit to stand CGA, VC for precautions. Pt amb to bathroom and uses urinal while standing with CGA. Pt then amb to therapy gym and completes NuStep for 10 mins on WL of 1, pt stated any higher WL would hurt his hips and knees. Pt then completes standing ex in // bars. During , pt only able to complete 2 per LE d/t pain. Pt then amb 150' on ARU and returns to bed. Pt sit to supine and remains in bed with all needs met, call light in hand. Assessment Current Status: Fair Progress Pt increasing endurance w/ gait. Pt limited d/t pain. Pt may not be able to tolerate a much larger increase in activity at this time d/t pain PT Short Term Goals Short Term Goals Time Frame: Aug 04, 2021 Roll Left & Right: 3 (Jovany) Sit to lyin (Jovany) Lying to sitting on side of be: 3 (Jovany) Sit to stand: 4 Chair/vcv-lm-hsnqh transfer: 4 Walk 10 feet: 4 Walk 50 feet with two turns: 4 Walk 150 feet: 4 PT C.O.D. Clerk Goals C.O.D. Clerk Goals PT Correction Goals Time Frame: Aug 18, 2021 Roll Left & Right (QC): 4 (SBA) Sit to Lying (QC): 4 (SA) Lying-Sitting on Side/Bed(QC): 4 (SBA) Sit to Stand (QC): 5 Chair/Llx-hi-Kdkgf Xfer(QC): 5 Toilet Transfer (QC): 5 Car Transfer (QC): 3 (Jovany) Does the Patient Walk: Yes Walk 10 feet (QC): 5 Walk 50ft with 2 Turns (QC): 5 Walk 150 ft (QC): 5 Walking 10ft on Uneven Surface: 4 1 Step (curb) (QC): 4 4 Steps (QC): 4 12 Steps (QC): 88 Picking up an Object (QC): 88 Wheel 50 feet with 2 turns (QC: 9 Wheel 150 feet: 9 PT Plan Treatment/Plan Treatment Plan: Continue Plan of Care Treatment Plan: Bed Mobility, Education, Functional Activity Anthony, Functional Strength, Group Therapy, Gait, Safety, Therapeutic Exercise, Transfers Treatment Duration: Aug 18, 2021 Frequency: At least 5 of 7 days/Wk (IRF) Estimated Hrs Per Day: 1.5 hours per day Patient and/or Family Agrees t: Yes Time/GCodes Time In: 900 Time Out: 1000 Total Billed Treatment Time: 60 Total Billed Treatment 1, FA, GT, EX x2 EDILIA RODRÍGUEZ ELEMENTARY SPECIAL EDUCATION TEACHER Jul 31, 2021 09:55
[2021-07-31] MEDS ORDERED: LISI20TA26 PO ×2 (12:30)
[2021-07-31] MEDS ORDERED: TURM500C4 PO ×2 (12:30)
[2021-07-31] MEDS ORDERED: ACET-2267 PO ×2 (12:30)
[2021-07-31] MEDS ORDERED: FURO20TA4 PO ×2 (12:30)
[2021-07-31] MEDS ORDERED: HYDR25TA4 PO ×2 (12:30)
[2021-07-31] MEDS ORDERED: UBID100C17 PO ×2 (12:30)
[2021-07-31] MEDS ORDERED: FISH1CAP15 PO ×2 (12:30)
--- NOTE | 2021-07-31 14:20 | Physical Therapy Daily Note ---
PT Daily Note-Current Subjective Patient in bed pre tx, agrees to PT, has 10/10 pain, nurse notified. Appearance Patient in chair at bedside post tx with nurse call, phone, tray, all needs met, in room. Mental Status Patient Orientation: Person, Place, Situation back brace Transfers SCALE: Activities may be completed with or without assistive devices. 8-Upqejdzejy-uadopjk completes the activity by him/herself with no assistance from a helper. 5-Set-up or Clean-up Assistance-helper sets up or cleans up; patient completes activity. [place] assists only prior to or following the activity. 4-Supervision or Touching Assistance-helper provides verbal cues and/or touching/steadying and/or contact guard assistance as patient completes activity. Assistance may be provided throughout the activity or intermittently. 3-Partial/Moderate Assistance-helper does LESS THAN HALF the effort. [place] lifts, holds or supports trunk or limbs, but provides less than half the effort. 2-Substantial/Maximal Assistance-helper does MORE THAN HALF the effort. [place] lifts or holds trunk or limbs and provides more than half the effort. 7-Gxufyyoxb-tiwbbl does ALL the effort. Patient does none of the effort to complete the activity. Or, the assistance of 2 or more helpers is required for the patient to complete the activity. If activity was not attempted, code reason: 7-Patient Refused. 9-Not Applicable-not attempted and the patient did not perform the activity before the current illness, exacerbation or injury. 10-Not Attempted due to Environmental Limitations-(lack of equipment, weather restraints, etc.). 88-Not Attempted due to Medical Conditions or Safety Concerns. Roll Left & Right (QC): 6 Lying to Sitting/Side of Bed(Q: 4 Sit to Stand (QC): 4 Chair/Scv-zh-Vowzq Xfer(QC): 4 Gait Training Distance: 120'x2 Walk 10 feet (QC): 4 Walk 50 ft with 2 Turns(QC): 4 Gait Assistive Device: FWW slow but steady ambulation, antalgic Exercises NuStep Minutes: 15 NuStep Workload: 5 Treatments bed mobility and transfers, ambulation, functional strengthening Assessment Current Status: Fair Progress improving endurance PT Short Term Goals Short Term Goals Time Frame: Aug 04, 2021 Roll Left & Right: 3 (Jovany) Sit to lyin (Jovany) Lying to sitting on side of be: 3 (Jovany) Sit to stand: 4 Chair/wpn-pf-mzlbl transfer: 4 Walk 10 feet: 4 Walk 50 feet with two turns: 4 Walk 150 feet: 4 PT Jail Goals Blood Bank Specialist Goals PT Blood Bank Specialist Goals Time Frame: Aug 18, 2021 Roll Left & Right (QC): 4 (SBA) Sit to Lying (QC): 4 (SA) Lying-Sitting on Side/Bed(QC): 4 (SBA) Sit to Stand (QC): 5 Chair/Vuq-gv-Ykelx Xfer(QC): 5 Toilet Transfer (QC): 5 Car Transfer (QC): 3 (Jovany) Does the Patient Walk: Yes Walk 10 feet (QC): 5 Walk 50ft with 2 Turns (QC): 5 Walk 150 ft (QC): 5 Walking 10ft on Uneven Surface: 4 1 Step (curb) (QC): 4 4 Steps (QC): 4 12 Steps (QC): 88 Picking up an Object (QC): 88 Wheel 50 feet with 2 turns (QC: 9 Wheel 150 feet: 9 PT Plan Problem List Problem List: Activity Tolerance, Functional Strength, Safety, Balance, Gait, Transfer, Bed Mobility, ROM Treatment/Plan Treatment Plan: Continue Plan of Care Treatment Plan: Bed Mobility, Education, Functional Activity Anthony, Functional Strength, Group Therapy, Gait, Safety, Therapeutic Exercise, Transfers Treatment Duration: Aug 18, 2021 Frequency: At least 5 of 7 days/Wk (IRF) Estimated Hrs Per Day: 1.5 hours per day Patient and/or Family Agrees t: Yes Safety Risks/Education Patient Education: Gait Training, Transfer Techniques, Correct Positioning, Reviewed Don/Doff Brace, Safety Issues Teaching Recipient: Patient Teaching Methods: Demonstration, Discussion Response to Teaching: Reinforcement Needed Time/GCodes Time In: 1350 Time Out: 1420 Total Billed Treatment Time: 30 Total Billed Treatment 1 visit EX 15' FA 15' MICHELLE COHEN PT Jul 31, 2021 14:20
[2021-07-31] MEDS: ACETAMINOPHEN 325 MG TABLET PO PRN (14:24)
[2021-07-31 20:04] VITALS: BP 152/70
[2021-07-31] MEDS: MELATONIN 3 MG TABLET PO PRN (20:51)
[2021-08-01] MEDS: HYDROcodone/APAP 5 MG/325 MG (LORTAB) TAB PO PRN ×4 (04:30→20:21)
[2021-08-01] MEDS: BETHANECHOL 25 MG (URECHOLINE) TAB PO SCH ×4 (06:19→20:21)
[2021-08-01 07:49] VITALS: BP 142/67
[2021-08-01] MEDS: CEFDINIR 300 MG (OMNICEF) CAP PO SCH (08:25)
[2021-08-01] MEDS: PHENAZOPYRIDINE 100 MG (PYRIDIUM) TABLET PO SCH ×2 (08:25→17:01)
[2021-08-01] MEDS: TAMSULOSIN 0.4 MG (FLOMAX) CAP PO SCH ×2 (08:25→20:21)
[2021-08-01] MEDS: SENNA W/DOCUSATE (SENOKOT S) TABLET PO SCH ×2 (08:28→20:21)
[2021-08-01] MEDS: polyethylene glycoL POWDER 17 GM (MIRALAX) PACK PO SCH ×2 (08:28→21:14)
[2021-08-01] MEDS: DOCUSATE SODIUM 100 MG (COLACE) CAP PO SCH ×2 (08:28→20:21)
--- NOTE | 2021-08-01 08:31 | Occupational Ther Daily Note ---
OT Current Status-Daily Note Subjective Pt sitting EOB. Pt complained of pain in R elbow, rated 4-5/10. Nurse notified. Pt agreed to therapy. Mental Status/Objective Patient Orientation: Person, Place, Time, Situation Attachments: Other-See Comments (Lumbar Sacral Brace) ADL-Treatment Pt sitting EOB to complete own meal set up and uses regular utensils to eat. Pt donned back brace while seated EOB with setup. Doffed socks using dressing stick with physical cues. Pt ambulated to bathroom using FWW with CGA. Standing with FWW, pt able to place, hold and cleanse urinal for urination. Pt performed oral hygiene and grooming while seated sinkside, washed face and LH sponge to wash LB with supervision. Pt then used sock aid to don socks, after supplies gathered. Pt doffed back brace and hiked pants over hips to use toilet with SBA using grab bars to transfer from FWW to toilet seat. Pt demonstrated standing tolerance while washing hands at sink. Pt ambulated to bedside and transferred with CGA to EOB. Patient was educated on use of leg director of rehabilitation and wellness to lift left leg onto bed, CGA. Pt demonstrated good return on instructions. Patient positioned supine in bed with pillows under knees and elbows. Pt left with call button and phone within reach. Therapy Code Descriptions/Definitions Functional [place] Measure: 0=Not Assessed/NA 4=Minimal Assistance 1=Total Assistance 5=Supervision or Setup 2=Maximal Assistance 6=Modified [place] 3=Moderate Assistance 7=Complete IndependenceSCALE: Activities may be completed with or without assistive devices. 3-Jbhnzauajx-qlhffce completes the activity by him/herself with no assistance from a helper. 5-Set-up or Clean-up Assistance-helper sets up or cleans up; patient completes activity. [place] assists only prior to or following the activity. 4-Supervision or Touching Assistance-helper provides verbal cues and/or touching/steadying and/or contact guard assistance as patient completes activity. Assistance may be provided throughout the activity or intermittently. 3-Partial/Moderate Assistance-helper does LESS THAN HALF the effort. [place] lifts, holds or supports trunk or limbs, but provides less than half the effort. 2-Substantial/Maximal Assistance-helper does MORE THAN HALF the effort. [place] lifts or holds trunk or limbs and provides more than half the effort. 8-Thbehljqs-nhfqrz does ALL the effort. Patient does none of the effort to complete the activity. Or, the assistance of 2 or more helpers is required for the patient to complete the activity. If activity was not attempted, code reason: 7-Patient Refused. 9-Not Applicable-not attempted and the patient did not perform the activity before the current illness, exacerbation or injury. 10-Not Attempted due to Environmental Limitations-(lack of equipment, weather restraints, etc.). 88-Not Attempted due to Medical Conditions or Safety Concerns. Eating (QC): 6 Oral Hygiene (QC): 6 On/Off Footwear: 5 Toileting Hygiene (QC): 4 (CGA) Toilet Transfer (QC): 4 (CGA) OT Short Term Goals Short Term Goals Time Frame: Aug 04, 2021 Eatin Oral hygiene: 4 Toileting hygiene: 3 Shower/bathe self: 3 Upper body dressin Lower body dressin Putting on/taking off footwear: 3 OT Fpc Goals Mixer Blender Goals Time Frame: Aug 18, 2021 Eating (QC): 6 Oral Hygiene (QC): 6 Toileting Hygiene (QC): 6 Shower/Bathe Self (QC): 4 Upper Body Dressing (QC): 3 Lower Body Dressing (QC): 5 On/Off Footwear (QC): 5 1=Demonstrate adherence to instructed precautions during ADL tasks. 2=Patient will verbalize/demonstrate understanding of assistive devices/modifications for ADL. 3=Patient will improve strength/tolerance for activity to enable patient to perform ADL's. OT Education/Plan Problem List/Assessment Assessment: Impaired Funct Balance, Impaired Self-Care Skills Discharge Recommendations Plan/Recommendations: Continue POC Treatment Plan/Plan of Care Patient would benefit from OT for education, treatment and training to promote independence in ADL's, mobility, safety and/or upper extremity function for ADL's. Plan of Care: ADL Retraining, Functional Mobility, Group Exercise/Act as Ind, Orthotic Fitting/Training, UE Funct Exercise/Act Treatment Duration: Aug 18, 2021 Frequency: At least 5 of 7 days/Wk (IRF) Estimated Hrs Per Day: 1.5 hours per day Rehab Potential: Fair Time/GCodes Start Time: 07:15 Stop Time: 08:15 Total Time Billed (hr/min): 60 Billed Treatment Time 1 visit-ADL 4 (60 min) VICTOR MANUEL NEGRO Aug 01, 2021 08:30
--- NOTE | 2021-08-01 09:04 | PM&R Progress Note ---
Subjective HPI/CC On Admission Date Seen by Provider: Aug 01, 2021 Time Seen by Provider: 09:15 Subjective/Events-last exam 08/01/21: Patient doing well BM this morning DC planned for in order to go to Urology appointment in [place] already arranged Voiding well Impulsive at times so alarm in place Home BP meds ordered 07/31/21: Patient doing very well More lucid and brighter today Voiding well and PVR no residual Lortab given and doesn't help much with his legs but he had major issues with overuse of Lortab Labs good 07/30/21: Patient doing well Singer was out and he was able to void We will get post void residual and evaluate if he still retaining Bowels did move today but has moved a lot recently after ileus resolved 07/29/2021: Patient doing very well Had 2 BMs today We will try voiding trial tomorrow discontinue catheter Flomax and Pyridium and Urecholine maintained for past 6 days Family at the bedside Moving around well Review of Systems General: Fatigue, Malaise Musculoskeletal: back pain, leg pain Objective Exam Vital Signs Vital Signs Date Time Temp Pulse Resp B/P (MAP) Pulse Ox O2 Delivery O2 Flow Rate FiO2 08/02/21 03:22 37.7 08/01/21 21:00 Room Air 08/01/21 20:22 72 16 154/69 (97) 93 Capillary Refill : General Appearance: No Apparent Distress, WD/WN, Chronically ill, Obese HEENT: PERRL/EOMI, Normal ENT Inspection, Pharynx Normal Neck: Full Range of Motion, Normal Inspection, Non Tender, Supple, Carotid Bruit Respiratory: Chest Non Tender, Lungs Clear, Normal Breath Sounds, No Accessory Muscle Use, No Respiratory Distress Cardiovascular: Regular Rate, Rhythm, No Edema, No Gallop, No JVD, No Murmur, Normal Peripheral Pulses Gastrointestinal: Normal Bowel Sounds, No Organomegaly, No Pulsatile Mass, Non Tender, Soft Back: Normal Inspection, No CVA Tenderness, No Vertebral Tenderness Extremity: Normal Capillary Refill, Normal Inspection, Normal Range of Motion, Non Tender, No Calf Tenderness, No Pedal Edema Neurologic/Psychiatric: Alert, Oriented x3, medical secretary receptionist II-XII Norm as Tested, Abnormal Gait, Depressed Affect, Motor Weakness (Lower extremities 4/5) Skin: Normal Color, Warm/Dry Lymphatic: No Adenopathy Results/Procedures Lab Patient resulted labs reviewed. FIM Transfers Therapy Code Descriptions/Definitions Functional [place] Measure: 0=Not Assessed/NA 4=Minimal Assistance 1=Total Assistance 5=Supervision or Setup 2=Maximal Assistance 6=Modified [place] 3=Moderate Assistance 7=Complete IndependenceSCALE: Activities may be completed with or without assistive devices. 6-Ozvuuuwfmc-kmauazp completes the activity by him/herself with no assistance from a helper. 5-Set-up or Clean-up Assistance-helper sets up or cleans up; patient completes activity. [place] assists only prior to or following the activity. 4-Supervision or Touching Assistance-helper provides verbal cues and/or touching/steadying and/or contact guard assistance as patient completes activity. Assistance may be provided throughout the activity or intermittently. 3-Partial/Moderate Assistance-helper does LESS THAN HALF the effort. [place] lifts, holds or supports trunk or limbs, but provides less than half the effort. 2-Substantial/Maximal Assistance-helper does MORE THAN HALF the effort. [place] lifts or holds trunk or limbs and provides more than half the effort. 6-Buvtpwbjz-kfugrz does ALL the effort. Patient does none of the effort to complete the activity. Or, the assistance of 2 or more helpers is required for the patient to complete the activity. If activity was not attempted, code reason: 7-Patient Refused. 9-Not Applicable-not attempted and the patient did not perform the activity before the current illness, exacerbation or injury. 10-Not Attempted due to Environmental Limitations-(lack of equipment, weather restraints, etc.). 88-Not Attempted due to Medical Conditions or Safety Concerns. Roll Left to Right (QC): 6 Sit to Lying (QC): 3 Sit to Stand (QC): 4 Chair/Qwg-ch-Jlxox Xfer(QC): 4 Car Transfer (QC): 3 Gait Training Does the Patient Walk?: Yes Distance: 120'x2 Walk 10 feet (QC): 4 Walk 50 ft with 2 Turns(QC): 4 Walk 150 ft (QC): 4 Walking 10ft/uneven surface-QC: 88 Gait Persons Needed: 1 Gait Assistive Device: FWW Wheelchair Training Does the Pt Use a Wheelchair?: No Wheel 50 ft with 2 turns (QC): 9 Wheel 150 ft (QC): 9 Stair Training 1 Step (curb) (QC): 88 4 Steps (QC): 88 12 Steps (QC): 88 Balance Picking up an Object (QC): 88 ADL-Treatment Eating (QC): 6 Oral Hygiene (QC): 6 (sitting at sink, pt completes independently.) Bathing Location: L Arm, R Arm, L Upper Leg, R Upper Leg, L Lower Leg (including foot), R Lower Leg (including foot), Chest, Abdomen, Buttocks, Perineal Area Shower/Bathe Self (QC): 4 (SBA) Upper Body Dressing (QC): 5 Lower Body Dressing (QC): 3 (mod A) On/Off Footwear (QC): 5 Toileting Hygiene (QC): 2 Assessment/Plan Assessment and Plan Assess & Plan/Chief Complaint Assessment: Lumbar stenosis status post spine surgery on 07/24/[address] Martinez Acute on chronic urinary retention requiring indwelling catheter BPH Hypertension Status post acute kidney injury resolved with IV fluid at [facility] Altered mental status likely due to dehydration with pain medication Early ileus now resolved JOEY on CPAP High risk for respiratory depression and CO2 narcosis Plan: Inpatient rehab protocol Pain control Supportive care Bladder meds 07/29/2021: Voiding trial tomorrow Monitor closely Continue treatment 07/30/21: Monitor back pain BM regimen Monitor voiding 07/31/21: Monitor progress Voiding well Back pain managed 08/01/21: Kpad to help with muscle spasms DC (1) Lumbar stenosis with neurogenic claudication (2) JOEY on CPAP (3) Acute kidney injury (4) Dehydration (5) Ileus (6) Hypertension (7) Obesity RHETT CAMPOS DO Aug 01, 2021 09:04
--- NOTE | 2021-08-01 12:12 | Physical Therapy Daily Note ---
PT Daily Note-Current Subjective Pt sitting in recliner visiting with Sp upon arrival. Pt agrees to PT despite pain in back. Pain Numeric Pain Scale: 8 Location: Lower Location Body Site: Back Pain Description: Ache, Tightness, Sharp Comment: Pain constant w/o relief & increases w/some exercises Mental Status Patient Orientation: Person, Place, Time, Situation Attachments: Other-See Comments (TLSO Brace) Transfers SCALE: Activities may be completed with or without assistive devices. 0-Zyokaqaeqx-towoeoz completes the activity by him/herself with no assistance from a helper. 5-Set-up or Clean-up Assistance-helper sets up or cleans up; patient completes activity. [place] assists only prior to or following the activity. 4-Supervision or Touching Assistance-helper provides verbal cues and/or touching/steadying and/or contact guard assistance as patient completes acti vity. Assistance may be provided throughout the activity or intermittently. 3-Partial/Moderate Assistance-helper does LESS THAN HALF the effort. [place] lifts, holds or supports trunk or limbs, but provides less than half the effort. 2-Substantial/Maximal Assistance-helper does MORE THAN HALF the effort. [place] lifts or holds trunk or limbs and provides more than half the effort. 2-Sktkxqgjb-tvsdje does ALL the effort. Patient does none of the effort to complete the activity. Or, the assistance of 2 or more helpers is required for the patient to complete the activity. If activity was not attempted, code reason: 7-Patient Refused. 9-Not Applicable-not attempted and the patient did not perform the activity before the current illness, exacerbation or injury. 10-Not Attempted due to Environmental Limitations-(lack of equipment, weather restraints, etc.). 88-Not Attempted due to Medical Conditions or Safety Concerns. Sit to Stand (QC): 4 Weight Bearing Full Weight Bearing Full Weight Bearing Gait Training Does the Patient Walk?: Yes Distance: 100' x2 Walk 10 feet (QC): 5 Walk 50 ft with 2 Turns(QC): 5 Walk 150 ft (QC): 5 Gait Persons Needed: 1 Gait Assistive Device: FWW Pt walks with stiffness & analgetic gait pattern due to back pain. Wheelchair Training Does the Pt Use a Wheelchair?: No Stair Training Stair Training: Handrails/: 2 handrails #of Steps: 4 1 Step (curb) (QC): 5 4 Steps (QC): 5 Stairs: Pattern: Step to Exercises Seated Therapy Exercises: Ankle pumps, Long arc quads, Hip flexion, Glut set Seated Reps: 15 Treatments Pt dons TLSO brace then stands from recliner. Pt amb. in hallway then completes Seated EX at Therapy mat. Pt reports pain/discomfort from back with L LE exercise. Pt amb. 1 set of 4 steps then amb. in hallway and returns to room to rest. All needs met, call light in hand. Assessment Current Status: Good Progress Pt is able to complete tasks despite reporting pain. PT Short Term Goals Short Term Goals Time Frame: Aug 04, 2021 Roll Left & Right: 3 (Jovany) Sit to lyin (Jovany) Lying to sitting on side of be: 3 (Jovany) Sit to stand: 4 Chair/jnh-iz-fhnxw transfer: 4 Walk 10 feet: 4 Walk 50 feet with two turns: 4 Walk 150 feet: 4 PT Snf Goals Snf Goals PT Cook Pie Goals Time Frame: Aug 18, 2021 Roll Left & Right (QC): 4 (SBA) Sit to Lying (QC): 4 (SA) Lying-Sitting on Side/Bed(QC): 4 (SBA) Sit to Stand (QC): 5 Chair/Xvr-gl-Yingy Xfer(QC): 5 Toilet Transfer (QC): 5 Car Transfer (QC): 3 (Jovany) Does the Patient Walk: Yes Walk 10 feet (QC): 5 Walk 50ft with 2 Turns (QC): 5 Walk 150 ft (QC): 5 Walking 10ft on Uneven Surface: 4 1 Step (curb) (QC): 4 4 Steps (QC): 4 12 Steps (QC): 88 Picking up an Object (QC): 88 Wheel 50 feet with 2 turns (QC: 9 Wheel 150 feet: 9 PT Plan Problem List Problem List: Functional Strength Treatment/Plan Treatment Plan: Continue Plan of Care Treatment Plan: Bed Mobility, Education, Functional Activity Anthony, Functional Strength, Group Therapy, Gait, Safety, Therapeutic Exercise, Transfers Treatment Duration: Aug 18, 2021 Frequency: At least 5 of 7 days/Wk (IRF) Estimated Hrs Per Day: 1.5 hours per day Patient and/or Family Agrees t: Yes Safety Risks/Education Patient Education: Gait Training, Correct Positioning, Reviewed Don/Doff Brace, Safety Issues Teaching Recipient: Patient, Significant Other Teaching Methods: Discussion Response to Teaching: Verbalize Understanding Time/GCodes Time In: 1000 Time Out: 1100 Total Billed Treatment Time: 60 Total Billed Treatment 1, GT (15m), EX (20m) & FA x2 (25m) HALIMA OSBORN TECHNICAL REP Aug 01, 2021 12:12
--- NOTE | 2021-08-01 13:07 | ST Cognitive Linguistic Eval ---
Speech Evaluation-General Medical Diagnosis lumbar fusion L2-4 Onset Date: Jul 27, 2021 Medical History Pertinent Medical History: Arthritis, HTN Reviewed History: Yes Social History Current Living Status: Spouse Speech PLF-Current Status Language Eval: Auditory Comprehends Simple Yes/No Ques: Functional Indent/Objects Multiple [place]: Functional Ident/Pics in Multiple [place]: Functional Follows 1-Step Commands: Functional Follows Complex Directions: Functional Follows General Conversations: Functional Language Eval: Verbal Language Completes Spontaneous Greeting: Functional Produces Auto, Serial Info: Functional Imitates Simple Words/Phrases: Functional Word Finding: Functional Requests Basic Needs: Functional States Basic Personal Info: Functional Expresses Complex Ideas: Functional Objective Formal/Standardized Tests [facility] Mental Status Exam (UMS) was completed. Results Pt scored 18/30 indicating moderate cognitive deficits. present and indicated he had trouble with memory for a long time. indicates she takes care of bills, medications, cooking and all daily cognitive activities. 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 Impression Pt presents with moderate cognitive deficits according to UMS exam. Pt and both indicate that pt is at OF and would not like speech therapy at this time. Speech Patient Assess Expression of Ideas/Wants: Exhibits (3) (thoughts) or speech is not) Understanding Verbal Content: Usually Understands (3) Brief Interview-Mental Status: Yes (*Continue to Repetition of) Repetition of Three Words: Two (2) Temporal Orientation: Year: Correct (3) Temporal Orientation: Month: Accurate within 5 days(2) Temporal Orientation: Day: Correct (1) Recall : Wear to say "Sock": Yes, no cue required (2) Recall : Color: Yes, after cueing (1) Recall : Bed: Yes,after cueing (1) Memory/Recall Ability: Current season, Location of own room Speech Short Term Goals Short Term Goals Short Term Goals no goals at this time. Speech-Plan Treatment Plan Speech Therapy Treatment Plan: Discontinue ST Treatment Duration: Jul 28, 2021 Frequency: Modified Program (IRF) Estimated Hrs Per Day: Other Rehab Potential: Fair Time Speech Therapy Time In: 11:00 Speech Therapy Time Out: 11:30 Billed Treatment Time 1, cogn test 30 mins FRANCISCO ARROYO Aug 01, 2021 13:07
--- NOTE | 2021-08-01 13:36 | Occupational Ther Daily Note ---
OT Current Status-Daily Note Subjective Pt alert, lying in bed. present in room. Pt agrees to therapy. Pt c/o pain in R elbow, reports that nrs is bringing warming mat for lower back. Mental Status/Objective Patient Orientation: Person, Place, Time, Situation Attachments: Other-See Comments (lumbar/sacral brace) ADL-Treatment Therapy Code Descriptions/Definitions Functional [place] Measure: 0=Not Assessed/NA 4=Minimal Assistance 1=Total Assistance 5=Supervision or Setup 2=Maximal Assistance 6=Modified [place] 3=Moderate Assistance 7=Complete IndependenceSCALE: Activities may be completed with or without assistive devices. 3-Lzeybuqzum-pbrqzzi completes the activity by him/herself with no assistance from a helper. 5-Set-up or Clean-up Assistance-helper sets up or cleans up; patient completes activity. [place] assists only prior to or following the activity. 4-Supervision or Touching Assistance-helper provides verbal cues and/or touching/steadying and/or contact guard assistance as patient completes activity. Assistance may be provided throughout the activity or intermittently. 3-Partial/Moderate Assistance-helper does LESS THAN HALF the effort. [place] lifts, holds or supports trunk or limbs, but provides less than half the effort. 2-Substantial/Maximal Assistance-helper does MORE THAN HALF the effort. [place] lifts or holds trunk or limbs and provides more than half the effort. 9-Xqzovrhqi-wngzum does ALL the effort. Patient does none of the effort to complete the activity. Or, the assistance of 2 or more helpers is required for the patient to complete the activity. If activity was not attempted, code reason: 7-Patient Refused. 9-Not Applicable-not attempted and the patient did not perform the activity before the current illness, exacerbation or injury. 10-Not Attempted due to Environmental Limitations-(lack of equipment, weather restraints, etc.). 88-Not Attempted due to Medical Conditions or Safety Concerns. Other Treatment HOB elevated, pt able to go from supine to EOB independently. Pt requires assist x1 to go from EOB to supine. Pt ambulated around ARU using FWW with SBA for safety. Pt stated that at home was a tub/shower, ambulated to tub/shower in rm [id number] to practice transfer. When pt saw the tub/shower, pt stated that at home was a walk-in shower with doors. Pt also stated that he brought FWW into shower with him. No tub seat, when he gets tired he just gets out of the shower when questioned about safety. After therapy, pt lying in bed with call light/phone in reach. All needs met in room. OT Short Term Goals Short Term Goals Time Frame: Aug 04, 2021 Eatin Oral hygiene: 4 Toileting hygiene: 3 Shower/bathe self: 3 Upper body dressin Lower body dressin Putting on/taking off footwear: 3 OT Export Traffic Department Manager Goals Export Traffic Department Manager Goals Time Frame: Aug 18, 2021 Eating (QC): 6 Oral Hygiene (QC): 6 Toileting Hygiene (QC): 6 Shower/Bathe Self (QC): 4 Upper Body Dressing (QC): 3 Lower Body Dressing (QC): 5 On/Off Footwear (QC): 5 1=Demonstrate adherence to instructed precautions during ADL tasks. 2=Patient will verbalize/demonstrate understanding of assistive devices/modifications for ADL. 3=Patient will improve strength/tolerance for activity to enable patient to perform ADL's. OT Education/Plan Problem List/Assessment Assessment: Decreased Activ Tolerance, Impaired Self-Care Skills Discharge Recommendations Plan/Recommendations: Continue POC Treatment Plan/Plan of Care Patient would benefit from OT for education, treatment and training to promote independence in ADL's, mobility, safety and/or upper extremity function for ADL's. Plan of Care: ADL Retraining, Functional Mobility, Group Exercise/Act as Ind, Orthotic Fitting/Training, UE Funct Exercise/Act Treatment Duration: Aug 18, 2021 Frequency: At least 5 of 7 days/Wk (IRF) Estimated Hrs Per Day: 1.5 hours per day Rehab Potential: Fair Time/GCodes Start Time: 13:00 Stop Time: 13:15 Total Time Billed (hr/min): 15 Billed Treatment Time 1 visit-FA 1 (15 min) VICTOR MANUEL NEGRO Aug 01, 2021 13:36
--- NOTE | 2021-08-01 14:43 | Physical Therapy Daily Note ---
PT Daily Note-Current Subjective PT laying Supine in bed upon arrival. Pt had been laying on warm blanket but asked Nurse to check back incision for drainage. Pt agrees to PT. Pain Numeric Pain Scale: 5-Moderate Pain Location: Lower Location Body Site: Back Pain Description: Ache, Tightness Mental Status Patient Orientation: Person, Place, Time, Situation Attachments: Other-See Comments (TLSO Brace) Transfers SCALE: Activities may be completed with or without assistive devices. 5-Smckqjmgfk-orurgyx completes the activity by him/herself with no assistance from a helper. 5-Set-up or Clean-up Assistance-helper sets up or cleans up; patient completes activity. [place] assists only prior to or following the activity. 4-Supervision or Touching Assistance-helper provides verbal cues and/or touching/steadying and/or contact guard assistance as patient completes activity. Assistance may be provided throughout the activity or intermittently. 3-Partial/Moderate Assistance-helper does LESS THAN HALF the effort. [place] lifts, holds or supports trunk or limbs, but provides less than half the effort. 2-Substantial/Maximal Assistance-helper does MORE THAN HALF the effort. [place] lifts or holds trunk or limbs and provides more than half the effort. 8-Kcorzeieh-oirlxm does ALL the effort. Patient does none of the effort to complete the activity. Or, the assistance of 2 or more helpers is required for the patient to complete the activity. If activity was not attempted, code reason: 7-Patient Refused. 9-Not Applicable-not attempted and the patient did not perform the activity before the current illness, exacerbation or injury. 10-Not Attempted due to Environmental Limitations-(lack of equipment, weather restraints, etc.). 88-Not Attempted due to Medical Conditions or Safety Concerns. Sit to Lying (QC): 4 Lying to Sitting/Side of Bed(Q: 4 Sit to Stand (QC): 4 Weight Bearing Full Weight Bearing Full Weight Bearing Gait Training Does the Patient Walk?: Yes Distance: 150' Walk 10 feet (QC): 5 Walk 50 ft with 2 Turns(QC): 5 Walk 150 ft (QC): 5 Gait Persons Needed: 1 Gait Assistive Device: FWW Wheelchair Training Does the Pt Use a Wheelchair?: No Treatments Pt transfers from Supine to EOB for Nurse to check wound dressing. Dressing is replaced and new shirt is donned. Pt stands then ambulates in hallway before returning to rest with Kpad on for heat. Pt is repositioned to comfort with Kpad placed. All needs met, call light in hand. Assessment Current Status: Good Progress Pt is limited by pain. PT Short Term Goals Short Term Goals Time Frame: Aug 04, 2021 Roll Left & Right: 3 (Jovany) Sit to lyin (Jovany) Lying to sitting on side of be: 3 (Jovany) Sit to stand: 4 Chair/joi-bn-mpjmb transfer: 4 Walk 10 feet: 4 Walk 50 feet with two turns: 4 Walk 150 feet: 4 PT Perinatal Technician Goals Group Home Goals PT Group Home Goals Time Frame: Aug 18, 2021 Roll Left & Right (QC): 4 (SBA) Sit to Lying (QC): 4 (SA) Lying-Sitting on Side/Bed(QC): 4 (SBA) Sit to Stand (QC): 5 Chair/Iea-jf-Bbclr Xfer(QC): 5 Toilet Transfer (QC): 5 Car Transfer (QC): 3 (Jovany) Does the Patient Walk: Yes Walk 10 feet (QC): 5 Walk 50ft with 2 Turns (QC): 5 Walk 150 ft (QC): 5 Walking 10ft on Uneven Surface: 4 1 Step (curb) (QC): 4 4 Steps (QC): 4 12 Steps (QC): 88 Picking up an Object (QC): 88 Wheel 50 feet with 2 turns (QC: 9 Wheel 150 feet: 9 PT Plan Problem List Problem List: Activity Tolerance, Transfer Treatment/Plan Treatment Plan: Continue Plan of Care Treatment Plan: Bed Mobility, Education, Functional Activity Anthony, Functional Strength, Group Therapy, Gait, Safety, Therapeutic Exercise, Transfers Treatment Duration: Aug 18, 2021 Frequency: At least 5 of 7 days/Wk (IRF) Estimated Hrs Per Day: 1.5 hours per day Patient and/or Family Agrees t: Yes Safety Risks/Education Patient Education: Transfer Techniques, Correct Positioning, Reviewed Don/Doff Brace Teaching Recipient: Patient Teaching Methods: Discussion Response to Teaching: Verbalize Understanding Time/GCodes Time In: 1340 Time Out: 1400 Total Billed Treatment Time: 20 Total Billed Treatment 1, FA (20m) HALIMA OSBORN MS SQL SERVER DEVELOPER Aug 01, 2021 14:43
[2021-08-01] MEDS: ACETAMINOPHEN 325 MG TABLET PO PRN (17:01)
[2021-08-01] MEDS: MELATONIN 3 MG TABLET PO PRN (20:21)
[2021-08-01 20:22] VITALS: BP 154/69
[2021-08-02] MEDS: HYDROcodone/APAP 5 MG/325 MG (LORTAB) TAB PO PRN ×5 (02:52→20:55)
[2021-08-02] MEDS: BETHANECHOL 25 MG (URECHOLINE) TAB PO SCH ×4 (06:32→20:55)
[2021-08-02 07:33] VITALS: BP 156/69
[2021-08-02] MEDS: DOCUSATE SODIUM 100 MG (COLACE) CAP PO SCH ×2 (07:56→21:36)
[2021-08-02] MEDS: PHENAZOPYRIDINE 100 MG (PYRIDIUM) TABLET PO SCH ×2 (07:56→08:00)
[2021-08-02] MEDS: TAMSULOSIN 0.4 MG (FLOMAX) CAP PO SCH ×2 (07:58→20:55)
[2021-08-02] MEDS: lisINopril 20 MG (PRINIVIL) TABLET PO SCH (08:05)
[2021-08-02] MEDS: SENNA W/DOCUSATE (SENOKOT S) TABLET PO SCH ×2 (08:06→21:36)
[2021-08-02] MEDS: polyethylene glycoL POWDER 17 GM (MIRALAX) PACK PO SCH ×2 (08:06→21:36)
--- NOTE | 2021-08-02 08:42 | Occupational Ther Daily Note ---
OT Current Status-Daily Note Subjective Patient alert and sitting in recliner. Pt reported 8/10 pain in back and elbow. Nurse notified. Patient agrees to therapy. Mental Status/Objective Patient Orientation: Person, Place, Time, Situation Attachments: Other-See Comments (sacral lumbar brace) ADL-Treatment present throughout session. Able to educate on pt's lower body AE and HEP with light resistance theraband. After session, pt was sitting in chair with call button, phone, and table within reach. Therapy Code Descriptions/Definitions Functional [place] Measure: 0=Not Assessed/NA 4=Minimal Assistance 1=Total Assistance 5=Supervision or Setup 2=Maximal Assistance 6=Modified [place] 3=Moderate Assistance 7=Complete IndependenceSCALE: Activities may be completed with or without assistive devices. 2-Mkulkecdsl-ogquiwe completes the activity by him/herself with no assistance from a helper. 5-Set-up or Clean-up Assistance-helper sets up or cleans up; patient completes activity. [place] assists only prior to or following the activity. 4-Supervision or Touching Assistance-helper provides verbal cues and/or touching/steadying and/or contact guard assistance as patient completes activity. Assistance may be provided throughout the activity or intermittently. 3-Partial/Moderate Assistance-helper does LESS THAN HALF the effort. [place] lifts, holds or supports trunk or limbs, but provides less than half the effort. 2-Substantial/Maximal Assistance-helper does MORE THAN HALF the effort. [place] lifts or holds trunk or limbs and provides more than half the effort. 6-Mqdugytjj-ihyaoh does ALL the effort. Patient does none of the effort to complete the activity. Or, the assistance of 2 or more helpers is required for the patient to complete the activity. If activity was not attempted, code reason: 7-Patient Refused. 9-Not Applicable-not attempted and the patient did not perform the activity before the current illness, exacerbation or injury. 10-Not Attempted due to Environmental Limitations-(lack of equipment, weather restraints, etc.). 88-Not Attempted due to Medical Conditions or Safety Concerns. Eating (QC): 6 (patient is independent with set up and uses regular utensils) Oral Hygiene (QC): 6 (Sitting at sink pt completes oral care independently) Bathing Location: L Arm, R Arm, L Upper Leg, R Upper Leg, L Lower Leg (including foot), R Lower Leg (including foot), Chest, Abdomen, Buttocks, Perineal Area Shower/Bathe Self (QC): 4 (SBA while pt sitting at sink to complete spongebath using LB AE with verbal cues) Upper Body Dressing (QC): 4 (Pt required verbal cues in donning sacral lumbar brace) Lower Body Dressing (QC): 4 (CGA needed to complete task using AE to don pants.) On/Off Footwear: 5 (Pt completed task using AE with set up) Toileting Hygiene (QC): 6 (Patient independently completed) Toilet Transfer (QC): 4 (CGA for pt to safely transfer from FWW to toilet seat) Other Treatment Pt given low resistance theraband for future use when physician okay resistive exercises and UE exercise sheet to strengthen and increase activity tolerance for ADLs. Pt completed therapeutic ex against gravity due to back precautions while seated in chair. Skilled instruction for correct technique and modifications. Pt completed 6 B UE exercises-B shoulder flex/ex 10 reps 2 sets, elbow flex 10 reps 2 sets, tricep ext 10 reps 2 sets, Internal/ext rotation 10 reps 2 sets, Horizontal shoulder abd 10 reps 2 sets. Pt only was able to complete L elbow flex and tricep ext due pain in R elbow. Education OT Patient Education: Exercise program, Use of adapted equipment Teaching Recipient: Patient, Family Teaching Methods: Demonstration, Handout, Discussion, Audiovisual Response to Teaching: Return Demonstration OT Short Term Goals Short Term Goals Time Frame: Aug 04, 2021 Eatin Oral hygiene: 4 Toileting hygiene: 3 Shower/bathe self: 3 Upper body dressin Lower body dressin Putting on/taking off footwear: 3 OT Halfway Goals Licensed Practical Nurse Instructor Goals Time Frame: Aug 18, 2021 Eating (QC): 6 (met) Oral Hygiene (QC): 6 (met) Toileting Hygiene (QC): 6 (met) Shower/Bathe Self (QC): 4 (met) Upper Body Dressing (QC): 3 (met) Lower Body Dressing (QC): 5 (not met) On/Off Footwear (QC): 5 (met) 1=Demonstrate adherence to instructed precautions during ADL tasks. 2=Patient will verbalize/demonstrate understanding of assistive devices/modifications for ADL. 3=Patient will improve strength/tolerance for activity to enable patient to perform ADL's. OT Education/Plan Problem List/Assessment Assessment: Decreased Activ Tolerance, Decreased UE Strength, Impaired Self- Care Skills, Restricted Funct UE ROM Discharge Recommendations Plan/Recommendations: Continue POC Treatment Plan/Plan of Care Patient would benefit from OT for education, treatment and training to promote independence in ADL's, mobility, safety and/or upper extremity function for ADL's. Plan of Care: ADL Retraining, Functional Mobility, Group Exercise/Act as Ind, Orthotic Fitting/Training, UE Funct Exercise/Act Treatment Duration: Aug 18, 2021 Frequency: At least 5 of 7 days/Wk (IRF) Estimated Hrs Per Day: 1.5 hours per day Rehab Potential: Fair Time/GCodes Start Time: 07:15 Stop Time: 08:45 Total Time Billed (hr/min): 90 Billed Treatment Time 1 visit-ADL 4 (60 min) EX 2 (30 min) VICTOR MANUEL NEGRO Aug 02, 2021 08:42
--- NOTE | 2021-08-02 09:02 | PM&R Progress Note ---
Subjective HPI/CC On Admission Date Seen by Provider: Aug 02, 2021 Time Seen by Provider: 09:10 Subjective/Events-last exam 08/02/2021: Patient doing well Discontinue Pyridium We will go home tomorrow Bowels moved today Small amount of drainage from the spine surgical wound Outpatient therapy [facility] is his pharmacy Patient has plenty of pain medication at home 08/01/21: Patient doing well BM this morning DC planned for in order to go to Urology appointment in [place] already arranged Voiding well Impulsive at times so alarm in place Home BP meds ordered 07/31/21: Patient doing very well More lucid and brighter today Voiding well and PVR no residual Lortab given and doesn't help much with his legs but he had major issues with overuse of Lortab Labs good 07/30/21: Patient doing well Singer was out and he was able to void We will get post void residual and evaluate if he still retaining Bowels did move today but has moved a lot recently after ileus resolved 07/29/2021: Patient doing very well Had 2 BMs today We will try voiding trial tomorrow discontinue catheter Flomax and Pyridium and Urecholine maintained for past 6 days Family at the bedside Moving around well Review of Systems General: Fatigue Musculoskeletal: back pain Objective Exam Vital Signs Vital Signs Date Time Temp Pulse Resp B/P (MAP) Pulse Ox O2 Delivery O2 Flow Rate FiO2 08/02/21 21:36 36.8 08/02/21 21:00 Room Air 08/02/21 20:00 64 20 137/61 (86) 95 Capillary Refill : General Appearance: No Apparent Distress, WD/WN, Chronically ill, Obese HEENT: PERRL/EOMI, Normal ENT Inspection, Pharynx Normal Neck: Full Range of Motion, Normal Inspection, Non Tender, Supple, Carotid Bruit Respiratory: Chest Non Tender, Lungs Clear, Normal Breath Sounds, No Accessory Muscle Use, No Respiratory Distress Cardiovascular: Regular Rate, Rhythm, No Edema, No Gallop, No JVD, No Murmur, Normal Peripheral Pulses Gastrointestinal: Normal Bowel Sounds, No Organomegaly, No Pulsatile Mass, Non Tender, Soft Back: Normal Inspection, No CVA Tenderness, No Vertebral Tenderness Extremity: Normal Capillary Refill, Normal Inspection, Normal Range of Motion, Non Tender, No Calf Tenderness, No Pedal Edema Neurologic/Psychiatric: Alert, Oriented x3, certified medical technician II-XII Norm as Tested, Abnormal Gait, Depressed Affect, Motor Weakness (Lower extremities 4/5) Skin: Normal Color, Warm/Dry Lymphatic: No Adenopathy Results/Procedures Lab Patient resulted labs reviewed. FIM Transfers Therapy Code Descriptions/Definitions Functional [place] Measure: 0=Not Assessed/NA 4=Minimal Assistance 1=Total Assistance 5=Supervision or Setup 2=Maximal Assistance 6=Modified [place] 3=Moderate Assistance 7=Complete IndependenceSCALE: Activities may be completed with or without assistive devices. 4-Sgjkiobyif-mdalbeo completes the activity by him/herself with no assistance from a helper. 5-Set-up or Clean-up Assistance-helper sets up or cleans up; patient completes activity. [place] assists only prior to or following the activity. 4-Supervision or Touching Assistance-helper provides verbal cues and/or touching/steadying and/or contact guard assistance as patient completes activity. Assistance may be provided throughout the activity or intermittently. 3-Partial/Moderate Assistance-helper does LESS THAN HALF the effort. [place] lifts, holds or supports trunk or limbs, but provides less than half the effort. 2-Substantial/Maximal Assistance-helper does MORE THAN HALF the effort. [place] lifts or holds trunk or limbs and provides more than half the effort. 8-Pgfkafvrn-ocuzkb does ALL the effort. Patient does none of the effort to complete the activity. Or, the assistance of 2 or more helpers is required for the patient to complete the activity. If activity was not attempted, code reason: 7-Patient Refused. 9-Not Applicable-not attempted and the patient did not perform the activity before the current illness, exacerbation or injury. 10-Not Attempted due to Environmental Limitations-(lack of equipment, weather restraints, etc.). 88-Not Attempted due to Medical Conditions or Safety Concerns. Roll Left to Right (QC): 6 Sit to Lying (QC): 4 Sit to Stand (QC): 4 Chair/Tvv-lp-Cvoxr Xfer(QC): 4 Car Transfer (QC): 3 Gait Training Does the Patient Walk?: Yes Distance: 150' Walk 10 feet (QC): 5 Walk 50 ft with 2 Turns(QC): 5 Walk 150 ft (QC): 5 Walking 10ft/uneven surface-QC: 88 Gait Persons Needed: 1 Gait Assistive Device: FWW Wheelchair Training Does the Pt Use a Wheelchair?: No Wheel 50 ft with 2 turns (QC): 9 Wheel 150 ft (QC): 9 Stair Training Stair Training: Handrails/: 2 handrails #of Steps: 4 1 Step (curb) (QC): 5 4 Steps (QC): 5 12 Steps (QC): 88 Stairs: Pattern: Step to Balance Picking up an Object (QC): 88 ADL-Treatment Eating (QC): 6 Oral Hygiene (QC): 6 Bathing Location: L Arm, R Arm, L Upper Leg, R Upper Leg, L Lower Leg (including foot), R Lower Leg (including foot), Chest, Abdomen, Buttocks, Perineal Area Shower/Bathe Self (QC): 4 (SBA) Upper Body Dressing (QC): 5 Lower Body Dressing (QC): 3 (mod A) On/Off Footwear (QC): 5 Toileting Hygiene (QC): 4 (CGA) Toilet Transfer (QC): 4 (CGA) Assessment/Plan Assessment and Plan Assess & Plan/Chief Complaint Assessment: Lumbar stenosis status post spine surgery on 07/24/[address] Martinez Acute on chronic urinary retention requiring indwelling catheter BPH Hypertension Status post acute kidney injury resolved with IV fluid at [facility] Altered mental status likely due to dehydration with pain medication Early ileus now resolved JOEY on CPAP High risk for respiratory depression and CO2 narcosis Plan: Inpatient rehab protocol Pain control Supportive care Bladder meds 07/29/2021: Voiding trial tomorrow Monitor closely Continue treatment 07/30/21: Monitor back pain BM regimen Monitor voiding 07/31/21: Monitor progress Voiding well Back pain managed 08/01/21: Kpad to help with muscle spasms DC 08/02/2021: Discharge plan for tomorrow (1) Lumbar stenosis with neurogenic claudication (2) JOEY on CPAP (3) Acute kidney injury (4) Dehydration (5) Ileus (6) Hypertension (7) Obesity RHETT CAMPOS DO Aug 02, 2021 09:02
--- NOTE | 2021-08-02 11:06 | Physical Therapy Daily Note ---
PT Daily Note-Current Subjective Pt sitting in recliner upon arrival. Pt agrees to PT for QC scoring. Pain Numeric Pain Scale: 8 Location: Lower Location Body Site: Back Pain Description: Ache, Tightness Comment: Reports Sciatic like pain that runs from low back down both legs Mental Status Patient Orientation: Person, Place, Time, Situation Attachments: Other-See Comments (TLSO brace) Transfers SCALE: Activities may be completed with or without assistive devices. 5-Wgjmhjykyg-bsxzjzq completes the activity by him/herself with no assistance from a helper. 5-Set-up or Clean-up Assistance-helper sets up or cleans up; patient completes activity. [place] assists only prior to or following the activity. 4-Supervision or Touching Assistance-helper provides verbal cues and/or touching/steadying and/or contact guard assistance as patient completes activity. Assistance may be provided throughout the activity or intermittently. 3-Partial/Moderate Assistance-helper does LESS THAN HALF the effort. [place] lifts, holds or supports trunk or limbs, but provides less than half the effort. 2-Substantial/Maximal Assistance-helper does MORE THAN HALF the effort. [place] lifts or holds trunk or limbs and provides more than half the effort. 5-Czccqcdnj-kxycgc does ALL the effort. Patient does none of the effort to complete the activity. Or, the assistance of 2 or more helpers is required for the patient to complete the activity. If activity was not attempted, code reason: 7-Patient Refused. 9-Not Applicable-not attempted and the patient did not perform the activity before the current illness, exacerbation or injury. 10-Not Attempted due to Environmental Limitations-(lack of equipment, weather restraints, etc.). 88-Not Attempted due to Medical Conditions or Safety Concerns. Roll Left & Right (QC): 6 Sit to Lying (QC): 4 Lying to Sitting/Side of Bed(Q: 5 Sit to Stand (QC): 5 Chair/Uit-tm-Ztnkn Xfer(QC): 5 Toilet Transfer (QC): 5 Car Transfer (QC): 5 Weight Bearing Full Weight Bearing Full Weight Bearing Gait Training Does the Patient Walk?: Yes Distance: 250', 150'x2 Walk 10 feet (QC): 5 Walk 50 ft with 2 Turns(QC): 5 Walk 150 ft (QC): 5 Gait Persons Needed: 1 Gait Assistive Device: FWW Wheelchair Training Does the Pt Use a Wheelchair?: No Stair Training Stair Training: Handrails/: 2 handrails #of Steps: 4 1 Step (curb) (QC): 5 4 Steps (QC): 5 12 Steps (QC): 7 Stairs: Pattern: Step to Balance Picking up an Object (QC): 88 Special Test Comments Pt does not attempt due to back precautions at this time. Pt will have Sp and enterprise integration architect at home to assist. Treatments TF to standing and amb. in hallway. Pt asks to return to room to use BR then amb. in hallway again. Pt completes QC scoring items listed above. Pt returns to room to rest supine in bed at end of tx. All needs met, call light in hand. Assessment Current Status: Good Progress Pt is capable of completing tasks but reports pain/discomfort with movements. Pt needs assistance to lift B LE into bed which Sp is able to assist w/Min A. PT Short Term Goals Short Term Goals Time Frame: Aug 04, 2021 Roll Left & Right: 3 (Jovany) Sit to lyin (Jovany) Lying to sitting on side of be: 3 (Jovany) Sit to stand: 4 Chair/ndk-bc-nszio transfer: 4 Walk 10 feet: 4 Walk 50 feet with two turns: 4 Walk 150 feet: 4 PT Refinish Technician Goals Refinish Technician Goals PT Refinish Technician Goals Time Frame: Aug 18, 2021 Roll Left & Right (QC): 4 (SBA) Sit to Lying (QC): 4 (SA) Lying-Sitting on Side/Bed(QC): 4 (SBA) Sit to Stand (QC): 5 Chair/Lqt-fa-Ivqge Xfer(QC): 5 Toilet Transfer (QC): 5 Car Transfer (QC): 3 (Jovany) Does the Patient Walk: Yes Walk 10 feet (QC): 5 Walk 50ft with 2 Turns (QC): 5 Walk 150 ft (QC): 5 Walking 10ft on Uneven Surface: 4 1 Step (curb) (QC): 4 4 Steps (QC): 4 12 Steps (QC): 88 Picking up an Object (QC): 88 Wheel 50 feet with 2 turns (QC: 9 Wheel 150 feet: 9 PT Plan Problem List Problem List: Activity Tolerance, Transfer Treatment/Plan Treatment Plan: Continue Plan of Care Treatment Plan: Bed Mobility, Education, Functional Activity Anthony, Functional Strength, Group Therapy, Gait, Safety, Therapeutic Exercise, Transfers Treatment Duration: Aug 18, 2021 Frequency: At least 5 of 7 days/Wk (IRF) Estimated Hrs Per Day: 1.5 hours per day Patient and/or Family Agrees t: Yes Safety Risks/Education Patient Education: Transfer Techniques, Correct Positioning, Reviewed Don/Doff Brace, Safety Issues Teaching Recipient: Patient, Significant Other Teaching Methods: Discussion Response to Teaching: Verbalize Understanding Time/GCodes Time In: 1000 Time Out: 1100 Total Billed Treatment Time: 60 Total Billed Treatment 1, GT x2 (30m) & FA x2 (30m) HALIMA OSBORN COURT MAGISTRATE Aug 02, 2021 11:06
[2021-08-02] MEDS ORDERED: HYDR-3820 PO ×2 (12:38)
[2021-08-02] MEDS ORDERED: TMSL.4C PO ×2 (12:38)
[2021-08-02] MEDS ORDERED: Bethanechol Chl PO ×2 (12:38)
--- NOTE | 2021-08-02 14:56 | Physical Therapy Daily Note ---
PT Daily Note-Current Subjective Pt laying Supine in bed upon arrival. Pt agrees to PT. Pain Numeric Pain Scale: 8 Location: Lower Location Body Site: Back Pain Description: Ache, Tightness Comment: Sciatic pain reported Mental Status Patient Orientation: Person, Place, Time Attachments: Other-See Comments (TLSO Brace) Transfers SCALE: Activities may be completed with or without assistive devices. 4-Xozswodqcn-opjhbbh completes the activity by him/herself with no assistance from a helper. 5-Set-up or Clean-up Assistance-helper sets up or cleans up; patient completes activity. [place] assists only prior to or following the activity. 4-Supervision or Touching Assistance-helper provides verbal cues and/or touching/steadying and/or contact guard assistance as patient completes activity. Assistance may be provided throughout the activity or intermittently. 3-Partial/Moderate Assistance-helper does LESS THAN HALF the effort. [place] lifts, holds or supports trunk or limbs, but provides less than half the effort. 2-Substantial/Maximal Assistance-helper does MORE THAN HALF the effort. [place] lifts or holds trunk or limbs and provides more than half the effort. 7-Pdjxzgube-ruotqw does ALL the effort. Patient does none of the effort to complete the activity. Or, the assistance of 2 or more helpers is required for the patient to complete the activity. If activity was not attempted, code reason: 7-Patient Refused. 9-Not Applicable-not attempted and the patient did not perform the activity b efore the current illness, exacerbation or injury. 10-Not Attempted due to Environmental Limitations-(lack of equipment, weather restraints, etc.). 88-Not Attempted due to Medical Conditions or Safety Concerns. Lying to Sitting/Side of Bed(Q: 5 Sit to Stand (QC): 5 Weight Bearing Full Weight Bearing Full Weight Bearing Gait Training Does the Patient Walk?: Yes Distance: 250' Walk 10 feet (QC): 5 Walk 50 ft with 2 Turns(QC): 5 Walk 150 ft (QC): 5 Gait Assistive Device: FWW VC to stand up tall and walk closer to FWW. Wheelchair Training Does the Pt Use a Wheelchair?: No Treatments TF to EOB then dons shoes and TLSO brace. Stands and amb. in hallway. Pt returns to room to rest in recliner w/all needs met, call light in hand. Assessment Current Status: Good Progress Pt is ready to go home and Sp advises he will have plenty of support at home. PT Short Term Goals Short Term Goals Time Frame: Aug 04, 2021 Roll Left & Right: 3 (Jovany) Sit to lyin (Jovany) Lying to sitting on side of be: 3 (Jovany) Sit to stand: 4 Chair/aow-gv-okzsq transfer: 4 Walk 10 feet: 4 Walk 50 feet with two turns: 4 Walk 150 feet: 4 PT Assisted Goals Assisted Goals PT Mud Engineer Goals Time Frame: Aug 18, 2021 Roll Left & Right (QC): 4 (SBA) Sit to Lying (QC): 4 (SA) Lying-Sitting on Side/Bed(QC): 4 (SBA) Sit to Stand (QC): 5 Chair/Ets-aj-Eoazk Xfer(QC): 5 Toilet Transfer (QC): 5 Car Transfer (QC): 3 (Jovany) Does the Patient Walk: Yes Walk 10 feet (QC): 5 Walk 50ft with 2 Turns (QC): 5 Walk 150 ft (QC): 5 Walking 10ft on Uneven Surface: 4 1 Step (curb) (QC): 4 4 Steps (QC): 4 12 Steps (QC): 88 Picking up an Object (QC): 88 Wheel 50 feet with 2 turns (QC: 9 Wheel 150 feet: 9 PT Plan Problem List Problem List: Activity Tolerance Treatment/Plan Treatment Plan: Continue Plan of Care Treatment Plan: Bed Mobility, Education, Functional Activity Anthony, Functional Strength, Group Therapy, Gait, Safety, Therapeutic Exercise, Transfers Treatment Duration: Aug 18, 2021 Frequency: At least 5 of 7 days/Wk (IRF) Estimated Hrs Per Day: 1.5 hours per day Patient and/or Family Agrees t: Yes Safety Risks/Education Patient Education: Gait Training Teaching Recipient: Patient Teaching Methods: Discussion Response to Teaching: Verbalize Understanding Time/GCodes Time In: 1345 Time Out: 1415 Total Billed Treatment Time: 30 Total Billed Treatment 1, FA (15m) & GT (15m) HALIMA OSBORN PATROL OFFICER Aug 02, 2021 14:56
[2021-08-02 20:00] VITALS: BP 137/61
[2021-08-02] MEDS: MELATONIN 3 MG TABLET PO PRN (20:55)
[2021-08-03] MEDS: BETHANECHOL 25 MG (URECHOLINE) TAB PO SCH (06:15)
[2021-08-03] MEDS: HYDROcodone/APAP 5 MG/325 MG (LORTAB) TAB PO PRN (06:16)
[2021-08-03] MEDS: TAMSULOSIN 0.4 MG (FLOMAX) CAP PO SCH (07:51)
[2021-08-03] MEDS: lisINopril 20 MG (PRINIVIL) TABLET PO SCH (07:52)
[2021-08-03] MEDS: ACETAMINOPHEN 325 MG TABLET PO PRN (07:58)
[2021-08-03 08:00] VITALS: BP 132/60
[2021-08-03 08:30] VITALS: BP 132/60
--- NOTE | 2021-08-03 10:08 | Discharge Summary ---
Diagnosis/Chief Complaint Date of Admission Jul 28, 2021 at 10:45 Date of Discharge Aug 03, 2021 at 08:32 Discharge Date: Aug 02, 2021 Discharge Diagnosis Assessment: Lumbar stenosis status post spine surgery on 07/24/[address] Juan Curran on chronic urinary retention requiring indwelling catheter BPH Hypertension Status post acute kidney injury resolved with IV fluid at [facility] Altered mental status likely due to dehydration with pain medication Early ileus now resolved JOEY on CPAP High risk for respiratory depression and CO2 narcosis Plan: Inpatient rehab protocol Pain control Supportive care Bladder meds 07/29/2021: Voiding trial tomorrow Monitor closely Continue treatment 07/30/21: Monitor back pain BM regimen Monitor voiding 07/31/21: Monitor progress Voiding well Back pain managed 08/01/21: Kpad to help with muscle spasms DC 08/02/2021: Discharge plan for tomorrow (1) Lumbar stenosis with neurogenic claudication (2) JOEY on CPAP (3) Acute kidney injury (4) Dehydration (5) Ileus (6) Hypertension (7) Obesity Discharge Summary Discharge Physical Examination Allergies: Coded Allergies: morphine (Verified Allergy, Unknown, 07/28/21) LISTED ON [place] DISCHARGE ORDERS Vitals & I&Os Vital Signs Date Time Temp Pulse Resp B/P (MAP) Pulse Ox O2 Delivery O2 Flow Rate FiO2 08/03/21 08:30 36.4 63 16 132/60 95 Room Air General Appearance: Alert, Oriented X3, Cooperative Respiratory: Clear to Auscultation Cardiovascular: Regular Rate Neuro: Normal Gait, Normal Speech, Strength at 5/5 X4 Ext Psych/Mental Status: Mental Status NL Hospital Course Was the Problem List Reviewed?: Yes Hospital course: Patient had an uneventful 7-day hospital course after he was admitted from [facility] observation due to acute kidney injury with dehydration and high risk for CO2 narcosis due to obesity with postop state with pain medication on board. Urinary retention requiring indwelling Singer that was ultimately discontinued after Urecholine and Flomax maintained for several days. He did finish antibiotic for early UTI. Overall he was managed with minimal pain medication although he wanted 10 mg of Lortab due to the CO2 narcosis I maintained the 5 mg. Urology appointment was on so although he was voiding well he will see urologist at [facility] at 9:45 AM. Labs (last 24 hrs) Laboratory Tests 07/29/21 10:30: White Blood Count 10.4, Red Blood Count 4.00L, Hemoglobin 13.1L, Hematocrit 39L, Mean Corpuscular Volume 98, Mean Corpuscular Hemoglobin 33, Mean Corpuscular Hemoglobin Concent 34, Red Cell Distribution Width 13.8, Platelet Count 327, Mean Platelet Volume 8.8L, Immature Granulocyte % (Auto) 0, Neutrophils (%) (Auto) 68, Lymphocytes (%) (Auto) 11L, Monocytes (%) (Auto) 18H, Eosinophils (%) (Auto) 2, Basophils (%) (Auto) 0, Neutrophils # (Auto) 7.1, Lymphocytes # (Auto) 1.1, Monocytes # (Auto) 1.9H, Eosinophils # (Auto) 0.2, Basophils # (Auto) 0.0, Immature Granulocyte # (Auto) 0.0, Sodium Level 140, Potassium Level 3.5L, Chloride Level 100, Carbon Dioxide Level 27, Anion Gap 13, Blood Urea Nitrogen 17, Creatinine 0.81, Estimat Glomerular Filtration Rate 93, BUN/Creatinine Ratio 21, Glucose Level 109H, Calcium Level 10.0, Corrected Calcium 10.2H, Total Bilirubin 1.0, Aspartate Amino Transf (AST/SGOT) 26, Alanine Aminotransferase (ALT/SGPT) 29, Alkaline Phosphatase 51, Total Protein 7.0, Albumin 3.7 07/31/21 05:40: White Blood Count 7.7, Red Blood Count 3.67L, Hemoglobin 11.9L, Hematocrit 35L, Mean Corpuscular Volume 95, Mean Corpuscular Hemoglobin 32, Mean Corpuscular Hemoglobin Concent 34, Red Cell Distribution Width 13.4, Platelet Count 347, Mean Platelet Volume 8.9L, Immature Granulocyte % (Auto) 0, Neutrophils (%) (Auto) 66, Lymphocytes (%) (Auto) 17, Monocytes (%) (Auto) 13H, Eosinophils (%) (Auto) 4, Basophils (%) (Auto) 1, Neutrophils # (Auto) 5.0, Lymphocytes # (Auto) 1.3, Monocytes # (Auto) 1.0, Eosinophils # (Auto) 0.3, Basophils # (Auto) 0.0, Immature Granulocyte # (Auto) 0.0, Sodium Level 137, Potassium Level 3.6, Chloride Level 100, Carbon Dioxide Level 26, Anion Gap 11, Blood Urea Nitrogen 15, Creatinine 0.74, Estimat Glomerular Filtration Rate 104, BUN/Creatinine Ratio 20, Glucose Level 111H, Calcium Level 9.3, Corrected Calcium 9.9, Total Bilirubin 0.8, Aspartate Amino Transf (AST/SGOT) 22, Alanine Aminotransferase (ALT/SGPT) 31, Alkaline Phosphatase 48, Total Protein 6.2L, Albumin 3.3 Pending Labs Laboratory Tests 07/29/21 10:30: White Blood Count 10.4, Red Blood Count 4.00, Hemoglobin 13.1, Hematocrit 39, Mean Corpuscular Volume 98, Mean Corpuscular Hemoglobin 33, Mean Corpuscular Hemoglobin Concent 34, Red Cell Distribution Width 13.8, Platelet Count 327, Mean Platelet Volume 8.8, Immature Granulocyte % (Auto) 0, Neutrophils (%) (Auto) 68, Lymphocytes (%) (Auto) 11, Monocytes (%) (Auto) 18, Eosinophils (%) (Auto) 2, Basophils (%) (Auto) 0, Neutrophils # (Auto) 7.1, Lymphocytes # (Auto) 1.1, Monocytes # (Auto) 1.9, Eosinophils # (Auto) 0.2, Basophils # (Auto) 0.0, Immature Granulocyte # (Auto) 0.0, Sodium Level 140, Potassium Level 3.5, Chloride Level 100, Carbon Dioxide Level 27, Anion Gap 13, Blood Urea Nitrogen 17, Creatinine 0.81, Estimat Glomerular Filtration Rate 93, BUN/Creatinine Ratio 21, Glucose Level 109, Calcium Level 10.0, Corrected Calcium 10.2, Total Bilirubin 1.0, Aspartate Amino Transf (AST/SGOT) 26, Alanine Aminotransferase (ALT/SGPT) 29, Alkaline Phosphatase 51, Total Protein 7.0, Albumin 3.7 07/31/21 05:40: White Blood Count 7.7, Red Blood Count 3.67, Hemoglobin 11.9, Hematocrit 35, Mean Corpuscular Volume 95, Mean Corpuscular Hemoglobin 32, Mean Corpuscular Hemoglobin Concent 34, Red Cell Distribution Width 13.4, Platelet Count 347, Mean Platelet Volume 8.9, Immature Granulocyte % (Auto) 0, Neutrophils (%) (Auto) 66, Lymphocytes (%) (Auto) 17, Monocytes (%) (Auto) 13, Eosinophils (%) (Auto) 4, Basophils (%) (Auto) 1, Neutrophils # (Auto) 5.0, Lymphocytes # (Auto) 1.3, Monocytes # (Auto) 1.0, Eosinophils # (Auto) 0.3, Basophils # (Auto) 0.0, Immature Granulocyte # (Auto) 0.0, Sodium Level 137, Potassium Level 3.6, Chloride Level 100, Carbon Dioxide Level 26, Anion Gap 11, Blood Urea Nitrogen 15, Creatinine 0.74, Estimat Glomerular Filtration Rate 104, BUN/Creatinine Ratio 20, Glucose Level 111, Calcium Level 9.3, Corrected Calcium 9.9, Total Bilirubin 0.8, Aspartate Amino Transf (AST/SGOT) 22, Alanine Aminotransferase (ALT/SGPT) 31, Alkaline Phosphatase 48, Total Protein 6.2, Albumin 3.3 Discharge Home Medications: Active Scripts Active Flomax (Tamsulosin HCl) 0.4 Mg Cap 0.4 Mg PO BID Take this if ok with Urologist [Bethanechol Chl] 25 MG Tab 25 Mg PO ACHS Take this is ok with Urology consultation Hydrocodone-Acetamin 10-325 mg (Hydrocodone/Acetaminophen) 1 Each Tablet 1 Each PO Q4H PRN 14 Days Reported Tylenol Extra Strength (Acetaminophen) 500 Mg Tablet 500-1,000 Mg PO Q8H PRN Coq-10 (Ubidecarenone) 100 Mg Capsule 100 Mg PO HS Fish Oil 1,200 mg Fish Oil (Fish Oil/Dha/Epa) 1 Each Capsule 1 Each PO HS Turmeric 500 mg Capsule (Turmeric/Turmeric Root Extract) 1 Each Capsule 1 Each PO HS Lisinopril 20 Mg Tablet 20 Mg PO DAILY Hydrochlorothiazide 25 Mg Tablet 25 Mg PO DAILY Diltiazem 24Hr Cd (Diltiazem HCl) 300 Mg Cap.er.24h 300 Mg PO DAILY Atorvastatin Calcium 40 Mg Tablet 40 Mg PO HS Instructions to patient/family Please see electronic discharge instructions given to patient. Diagnosis/Problems Diagnosis/Problems (1) Lumbar stenosis with neurogenic claudication (2) JOEY on CPAP (3) Acute kidney injury (4) Dehydration (5) Ileus (6) Hypertension (7) Obesity RHETT CAMPOS DO Aug 03, 2021 10:08
--- NOTE | 2021-08-03 11:59 | Therapy Team Discharge Summary ---
Therapy Discharge Summary Discharge Recommendations Date of Discharge Aug 03, 2021 at 08:32 Physical Therapy Patient came to rehab post lumbar fusion L2-4. Upon evaluation patient performed bed mobility and supine <-> sit mod assist, sit <-> stand and transfers CGA, car transfer mod assist, ambulated 50' with a rolling walker with CGA (including 50' with at least 2 turns of 90 degrees). Patient has been performing bed mobility and transfer training, balance and endurance training, functional strengthening, stair training, gait training, and education. 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 Now, patient performs rolling with independence, sit to supine with SBA, supine to sit with setup, sit <-> stand and transfers with setup, car transfer with setup, ambulates 250' with a rolling walker with setup (including 50' with at least 2 turns of 90 degrees and 10' over an uneven surface), and can go up and down 4 steps using 2 handrails with setup. Patient has been discharged from this facility and will be discharged from PT at this time. Occupational Therapy Decreased Activ Tolerance, Decreased UE Strength, Impaired Self-Care Skills, Restricted Funct UE ROM PT Personnel Technician Goals Personnel Technician Goals PT Personnel Technician Goals Time Frame: Aug 18, 2021 Roll Left to Right (QC): 4 (SBA) Sit to Lying (QC): 4 (SA) Lying-Sitting on Side/Bed(QC): 4 (SBA) Sit to Stand (QC): 5 Chair/Psa-ba-Micgw Xfer(QC): 5 Car Transfer (QC): 3 (Jovany) Does the Patient Walk: Yes Walk 10 feet (QC): 5 Walk 10ft-Uneven Surface(QC): 4 Walk 50ft with 2 Turns (QC): 5 Walk 150 ft (QC): 5 Wheel 50 feet with 2 turns (QC: 9 1 Step (curb) (QC): 4 4 Steps (QC): 4 12 Steps (QC): 88 Picking up an Object (QC): 88 OT Usp Goals Personnel Technician Goals Time Frame: Aug 18, 2021 Eating (QC): 6 (met) Oral Hygiene (QC): 6 (met) Shower/Bathe Self (QC): 4 (met) Upper Body Dressing (QC): 3 (met) Lower Body Dressing (QC): 5 (not met) On/Off Footwear (QC): 5 (met) Toileting Hygiene (QC): 6 (met) Toilet/Commode Transfer (QC): 5 1=Demonstrate adherence to instructed precautions during ADL tasks. 2=Patient will verbalize/demonstrate understanding of assistive devices/modifications for ADL. 3=Patient will improve strength/tolerance for activity to enable patient to perform ADL's. MICHELLE COHEN PT Aug 03, 2021 11:59
--- NOTE | 2021-08-03 12:55 | Therapy Team Discharge Summary ---
Therapy Discharge Summary Discharge Recommendations Date of Discharge Aug 03, 2021 at 08:32 Therapy D/C Recommendations: Home w/ Family Support Occupational Therapy Patient came to rehab post lumbar fusion L2-4. Upon evaluation patient performed bating, UB dressing, LB dressing, and hygiene with max a, was dependent with footwear, and was CGA for oral hygiene. While on rehab, OT focused on improving balance, endurance, compensatory/adaptive strategies, UE strength/rom, and use of AE in order to improve indep with adls and functional transfers. Patient has made good progress and has met all but one (LB dressing) of his care home goals. Now, patient performs upper/lower body dressing, toileting/transfer, and bathing with sba-cga, is set up for footwear, and is independent with oral care and eating. Patient has been discharged from this facility and will be discharged from OT at this time. Decreased Activ Tolerance, Decreased UE Strength, Impaired Self-Care Skills, Restricted Funct UE ROM PT Group Home Goals Delivery Clerk Goals PT Group Home Goals Time Frame: Aug 18, 2021 Roll Left to Right (QC): 4 (SBA) Sit to Lying (QC): 4 (SA) Lying-Sitting on Side/Bed(QC): 4 (SBA) Sit to Stand (QC): 5 Chair/Ndp-vf-Ryzjv Xfer(QC): 5 Car Transfer (QC): 3 (Jovany) Does the Patient Walk: Yes Walk 10 feet (QC): 5 Walk 10ft-Uneven Surface(QC): 4 Walk 50ft with 2 Turns (QC): 5 Walk 150 ft (QC): 5 Wheel 50 feet with 2 turns (QC: 9 1 Step (curb) (QC): 4 4 Steps (QC): 4 12 Steps (QC): 88 Picking up an Object (QC): 88 OT Delivery Clerk Goals Group Home Goals Time Frame: Aug 18, 2021 Eating (QC): 6 (met) Oral Hygiene (QC): 6 (met) Shower/Bathe Self (QC): 4 (met) Upper Body Dressing (QC): 3 (met) Lower Body Dressing (QC): 5 (not met) On/Off Footwear (QC): 5 (met) Toileting Hygiene (QC): 6 (met) Toilet/Commode Transfer (QC): 5 1=Demonstrate adherence to instructed precautions during ADL tasks. 2=Patient will verbalize/demonstrate understanding of assistive devices/modifications for ADL. 3=Patient will improve strength/tolerance for activity to enable patient to perform ADL's. Zeina Gaitan OT Aug 03, 2021 12:55
== END 2021-08-03 08:32 | disposition home or self-care (01) | DRG 948 ==
PROVIDERS: ADMIT Internal Medicine; ATTEND Internal Medicine
DX: R53.1 Weakness (principal); N39.0 Urinary tract infection, site not specified; Z47.89 Encounter for other orthopedic aftercare; N40.1 Benign prostatic hyperplasia with lower urinary tract symptoms; R33.8 Other retention of urine; I10 Essential (primary) hypertension; M19.91 Primary osteoarthritis, unspecified site; G47.33 Obstructive sleep apnea (adult) (pediatric); K59.00 Constipation, unspecified; E66.9 Obesity, unspecified; Z68.39 Body mass index [BMI] 39.0-39.9, adult; H54.7 Unspecified visual loss; H91.90 Unspecified hearing loss, unspecified ear; Z96.643 Presence of artificial hip joint, bilateral; Z88.6 Allergy status to analgesic agent
CPT/HCPCS: 36415; 80053; 85025

== ENCOUNTER → 2021-08-04 | Outpatient (CLI) | payer MEDICARE, OTHER ==
[~2021-08-04] MED LIST changes: +ACET-2267 PO; +ATOR40TA70 PO; +BETHANECHOL PO; +Bethanechol Chl PO; +CEFD300C3 PO; +DILT300C51 PO; +FISH1CAP15 PO; +FURO20TA4 PO; +HYDR-3820 PO; +HYDR25TA4 PO; +LACT10SO33 PO; +LISI20TA26 PO; +PHEN-640 PO; +POLY17PO6 PO; +SENN-259 PO; +TMSL.4C PO; +TURM500C4 PO; +UBID100C17 PO
--- NOTE | 2021-08-04 11:21 | Diagnostic Imaging Report ---
Indication: Right elbow swelling. TIME OF EXAM: 10:52 AM 3 views of the right elbow were obtained. There are degenerative changes present. There is enthesophyte of the olecranon. The anterior fat pad is slightly prominent which could indicate elbow joint effusion. No definite fracture is detected however. IMPRESSION: Degenerative changes and perhaps small elbow joint effusion. No definite fracture is detected. Dictated by: Dictated on workstation # [id number]
== END ==
LOC: RAD FS 10:32
PROVIDERS: ATTEND Nurse Practitioner Family
DX: M19.021 Primary osteoarthritis, right elbow (principal)
CPT/HCPCS: 73080

== ENCOUNTER 2022-06-18 02:07 | Emergency (ER) | payer MEDICARE, OTHER ==
[~2022-06-18] VITALS: Ht 157.5 cm; Wt 102.5 kg
[2022-06-18 02:10] VITALS: BP 196/80
--- NOTE | 2022-06-18 02:24 | ED Abdominal Pain ---
General Chief Complaint: Abdominal/GI Problems Stated Complaint: CONSTIPATION/URINARY PROBLEMS Source of Information: Patient Exam Limitations: No Limitations History of Present Illness Date Seen by Provider: Jun 18, 2022 Time Seen by Provider: 02:10 Initial Comments Patient is a 72-year-old who is status post right knee replacement who presents with constipation with acute urinary retention. Patient had right knee replaced 1 week ago and has been taking daily narcotic pain medication. He has used 1 laxative in the past week and has not had a bowel movement in the past 24 hours. He reports difficulty urinating this evening with increased pain. Reports abdominal distention and cramping. He is able to pass gas and a small amount of stool. No other acute symptoms or complaints Timing/Duration: 1-3 Hours Severity/Quality: Moderate Location: Suprapubic Radiation: Other Activities at Onset: Other Modifying Factors: Improves With Other Associated Symptoms: Other Allergies and Home Medications Allergies Coded Allergies: morphine (Verified Allergy, Unknown, 07/28/21) LISTED ON [place] DISCHARGE ORDERS Patient Home Medication List Home Medication List Reviewed: Yes Acetaminophen (Tylenol Extra Strength) 500 Mg Tablet, 500-1,000 MG PO Q8H PRN for PAIN-MILD (1-4), (Reported) Entered as Reported by: TALI ESPARZA on 07/31/21 1230 Atorvastatin Calcium (Atorvastatin Calcium) 40 Mg Tablet, 40 MG PO HS, (Reported) Entered as Reported by: TALI ESPARZA on 07/28/21 1123 Diltiazem HCl (Diltiazem 24Hr Cd) 300 Mg Cap.er.24h, 300 MG PO DAILY, (Reported) Entered as Reported by: TALI ESPARZA on 07/28/21 1123 Fish Oil/Dha/Epa (Fish Oil 1,200 mg Fish Oil) 1 Each Capsule, 1 EACH PO HS, (Reported) Entered as Reported by: TALI ESPARZA on 07/31/21 1230 Hydrochlorothiazide (Hydrochlorothiazide) 25 Mg Tablet, 25 MG PO DAILY, (Reported) Entered as Reported by: TALI ESPRAZA on 07/31/21 1230 Hydrocodone/Acetaminophen (Hydrocodone-Acetamin 10-325 mg) 1 Each Tablet, 1 EACH PO Q4H PRN for PAIN-MODERATE (5-7) Prescribed by: RHETT CAMPOS on 08/02/21 1238 Lisinopril (Lisinopril) 20 Mg Tablet, 20 MG PO DAILY, (Reported) Entered as Reported by: TALI ESPARZA on 07/31/21 1230 Tamsulosin HCl (Flomax) 0.4 Mg Cap, 0.4 MG PO BID Prescribed by: RHETT CAMPOS on 08/02/21 1238 Turmeric/Turmeric Root Extract (Turmeric 500 mg Capsule) 1 Each Capsule, 1 EACH PO HS, (Reported) Entered as Reported by: TALI ESPARZA on 07/31/21 1230 Ubidecarenone (Coq-10) 100 Mg Capsule, 100 MG PO HS, (Reported) Entered as Reported by: TALI ESPARZA on 07/31/21 1230 [Bethanechol Chl] 25 MG TAB, 25 MG PO ACHS Prescribed by: RHETT CAMPOS on 08/02/21 1238 Review of Systems Review of Systems Constitutional: see HPI EENTM: See HPI Respiratory: See HPI Cardiovascular: See HPI Gastrointestinal: See HPI Genitourinary: See HPI Musculoskeletal: see HPI Skin: see HPI Psychiatric/Neurological: See HPI Endocrine: See HPI Hematologic/Lymphatic: See HPI All Other Systems Reviewed Negative Unless Noted: No Past Prvbjmt-Dsnydg-Hxostt Hx Patient Social History Tobacco Use?: No Use of E-Cig and/or Vaping dev: No Substance use?: No Alcohol Use?: No Pt feels they are or have been: No Immunizations Up To Date First/Initial COVID19 Vaccinat: Nov 2020 Second COVID19 Vaccination Keron: December 2020 Seasonal Allergies Seasonal Allergies: No Past Medical History Surgeries: Yes Orthopedic, Tonsillectomy Respiratory: No Sleep Apnea Currently Using CPAP: Yes Cardiac: Yes Hypertension Neurological: No Reproductive Disorders: No Sexually Transmitted Disease: No HIV/AIDS: No Benign Prostatic Hyperpl Gastrointestinal: Yes Chronic Diarrhea Musculoskeletal: Yes Arthritis Endocrine: No Loss of Vision: Bilateral Hearing Impairment: Hard of Hearing Cancer: No Adverse Reaction/Blood Tranf: No (HAS BLOOD WITH NO REACTION) Physical Exam Vital Signs Vital Signs - First Documented 06/18/22 02:10 Temp 36.2 Pulse 76 Resp 22 B/P (MAP) 196/80 (118) Pulse Ox 94 O2 Delivery Room Air Capillary Refill : Height/Weight/BMI Height: 5'4.00" Weight: 220lbs. 0.0oz. [id number]; 40.70 BMI Method: General Appearance: WD/WN, no apparent distress HEENT: normal ENT inspection Neck: full range of motion Respiratory: lungs clear Cardiovascular: regular rate, rhythm, no edema Gastrointestinal: normal bowel sounds, soft, distended; No guarding, No tenderness Extremities: normal range of motion, non-tender Back: normal inspection, no CVA tenderness Neurologic/Psychiatric: oriented x 3 Skin: normal color, warm/dry Focused Exam Sepsis Stage: Ruled Out Progress/Results/Core Measures Results/Orders Lab Results Laboratory Tests Test 06/18/22 02:44 Range/Units Urine Color YELLOW Urine Clarity CLEAR Urine pH 6.0 5-9 Urine Specific [place] 1.010 L 1.016-1.022 Urine Protein NEGATIVE NEGATIVE Urine Glucose (UA) NEGATIVE NEGATIVE Urine Ketones NEGATIVE NEGATIVE Urine Nitrite NEGATIVE NEGATIVE Urine Bilirubin NEGATIVE NEGATIVE Urine Urobilinogen 0.2 < = 1.0 MG/DL Urine Leukocyte Esterase NEGATIVE NEGATIVE Urine RBC (Auto) NEGATIVE NEGATIVE Urine RBC 0-2 /HPF Urine WBC NONE /HPF Urine Crystals NONE /LPF Urine Bacteria TRACE /HPF Urine Casts NONE /LPF Urine Mucus NEGATIVE /LPF Urine Culture Indicated NO My Orders Orders - ESHA MARIE DO Singer Cath (06/18/22 02:20) Ua Culture If Indicated (06/18/22 02:24) Acute Abd Series (06/18/22 02:24) Vital Signs/I&O 06/18/22 02:10 Temp 36.2 Pulse 76 Resp 22 B/P (MAP) 196/80 (118) Pulse Ox 94 O2 Delivery Room Air Departure Communication (Admissions) Acute abdominal series: No evidence of obstruction. Singer catheter placed with greater than 1500 cc of urine output significant relief of symptoms. Recommendations are supportive care with treatment of cons tipation with mag citrate tomorrow and then follow-up with PCP 1 to 2 days for removal of Singer catheter. Return to the ED if new or worsening symptoms Impression Primary Impression: Acute urinary retention Additional Impression: Constipation Disposition: 01 HOME, SELF-CARE Condition: Stable Departure-Patient Inst. Decision time for Depature: 02:59 Referrals: [facility] (PCP) Primary Care Physician CLARY RIVERA APRN (Family) Primary Care Physician Patient Instructions: Urinary Retention, Constipation, Adult ED Add. Discharge Instructions: You were evaluated in the emergency department for acute abdominal pain with urinary retention and constipation. Please drink 1-2 bottles twice daily for the next 2 days and follow-up with your PCP in 2 to 3 days for removal of Singer catheter. Return to the ED if new or worsening symptoms All discharge instructions reviewed with patient and/or family. Voiced understanding. ESHA MARIE DO Jun 18, 2022 02:24
[2022-06-18 02:47] LABS: BILIRUBIN,URINE NEGATIVE (NEGATIVE); CLARITY,URINE CLEAR; COLOR,URINE YELLOW; GLUCOSE, URINE (UA) NEGATIVE (NEGATIVE); KETONES,URINE NEGATIVE (NEGATIVE); LEUKOCYTE ESTERASE ,URINE NEGATIVE (NEGATIVE); NITRITE,URINE NEGATIVE (NEGATIVE); PROTEIN,URINE NEGATIVE (NEGATIVE)
[2022-06-18 02:50] LABS: BACTERIA,URINE TRACE /HPF; RBC,URINE 0-2 /HPF
--- NOTE | 2022-06-18 07:08 | Diagnostic Imaging Report ---
INDICATION: Abdominal pain. COMPARISON: None FINDINGS: Single frontal radiographic view of the chest was obtained and demonstrates mild enlargement of the cardiac silhouette. Pulmonary vasculature is mildly prominent as well. Lungs are otherwise clear. There is no focal consolidation, large effusion, no pneumothorax. Osseous structures show no gross acute abnormalities. Supine and upright radiographic views of the abdomen were also obtained. Small bowel loops are nondilated. There is no large collection of free intraperitoneal air. No abnormal air-fluid levels are identified. No unexpected extraosseous calcifications or radiopaque foreign bodies are seen. IMPRESSION: 1. Mild cardiomegaly and pulmonary vascular congestion. 2. Nonobstructive small bowel gas pattern Dictated by: Dictated on workstation # [id number]
== END 2022-06-18 03:09 | disposition home or self-care (01) ==
LOC: EDUNIT# 02:07 → ER FS 02:09
DX: K59.00 Constipation, unspecified (principal); R33.9 Retention of urine, unspecified; G47.30 Sleep apnea, unspecified; Z99.89 Dependence on other enabling machines and devices
CPT/HCPCS: 51702; 74022; 81000

== ENCOUNTER → 2022-11-08 | Outpatient (CLI) | payer MEDICARE, OTHER | LOC: CARDFS 12:38 | PROVIDERS: ATTEND Internal Medicine Cardiovascular Disease | DX: I11.9 Hypertensive heart disease without heart failure (principal) | CPT/HCPCS: 93306 ==

== ENCOUNTER 2022-11-25 20:35 | Inpatient (IN) | payer MEDICARE, OTHER ==
[~2022-11-25] VITALS: Ht 162.6 cm; Wt 99.8 kg
--- NOTE | 2022-11-25 20:42 | ED Neurological Problem ---
General Stated Complaint: POSS STROKE History of Present Illness Date Seen by Provider: Nov 25, 2022 Time Seen by Provider: 20:42 Initial Comments 73-year-old male with PMH of JOEY on CPAP/ HTN/ Obesity, is here with c/o confusion, and inability to walk. Pt's provided the history, and reports that patient was working in the [place], and came in to take a nap. Patient woke up in the evening and found him leaning over on the side of the bed stating that he does not feel well. Patient was unable to ambulate well, and appeared confused, and was unable to answer basic questions from his . In the ER patient is able to state his name and birthdate but unable to answer questions regarding dates. Patient is able to answer questions, but appears confused, and answers extremely slowly. Patient was unable to use his right leg to walk backwards or forwards. Patient does not use a cane or walker at home and is able to ambulate without any difficulty. Denies chest pain, LOC, headache, blurry vision, dizziness, hearing difficulties, shortness of breath, abdominal pain, nausea and vomiting. Allergies and Home Medications Allergies Coded Allergies: morphine (Verified Allergy, Unknown, 07/28/21) LISTED ON [facility] DISCHARGE ORDERS Patient Home Medication List Home Medication List Reviewed: Yes Acetaminophen (Tylenol Extra Strength) 500 Mg Tablet, 500-1,000 MG PO Q8H PRN for PAIN-MILD (1-4), (Reported) Entered as Reported by: TALI ESPARZA on 07/31/21 1230 Atorvastatin Calcium (Atorvastatin Calcium) 40 Mg Tablet, 40 MG PO HS, (Reported) Entered as Reported by: TALI ESPARZA on 07/28/21 1123 Diltiazem HCl (Diltiazem 24Hr Cd) 300 Mg Cap.er.24h, 300 MG PO DAILY, (Reported) Entered as Reported by: TALI ESPARZA on 07/28/21 1123 Fish Oil/Dha/Epa (Fish Oil 1,200 mg Fish Oil) 1 Each Capsule, 1 EACH PO HS, (Reported) Entered as Reported by: TALI ESPARZA on 07/31/21 1230 Hydrochlorothiazide (Hydrochlorothiazide) 25 Mg Tablet, 25 MG PO DAILY, (Reported) Entered as Reported by: TALI ESPARZA on 07/31/21 1230 Hydrocodone/Acetaminophen (Hydrocodone-Acetamin 10-325 mg) 1 Each Tablet, 1 EACH PO Q4H PRN for PAIN-MODERATE (5-7) Prescribed by: RHETT CAMPOS on 08/02/21 1238 Lisinopril (Lisinopril) 20 Mg Tablet, 20 MG PO DAILY, (Reported) Entered as Reported by: TALI ESPARZA on 07/31/21 1230 Tamsulosin HCl (Flomax) 0.4 Mg Cap, 0.4 MG PO BID Prescribed by: RHETT CAMPOS on 08/02/21 1238 Turmeric/Turmeric Root Extract (Turmeric 500 mg Capsule) 1 Each Capsule, 1 EACH PO HS, (Reported) Entered as Reported by: TALI ESPARZA on 07/31/21 1230 Ubidecarenone (Coq-10) 100 Mg Capsule, 100 MG PO HS, (Reported) Entered as Reported by: TALI ESPARZA on 07/31/21 1230 [Bethanechol Chl] 25 MG TAB, 25 MG PO ACHS Prescribed by: RHETT CAMPOS on 08/02/21 1238 Review of Systems Review of Systems Constitutional: no symptoms reported Eyes: No Symptoms Reported Ears, Nose, Mouth, Throat: no symptoms reported Respiratory: no symptoms reported Cardiovascular: no symptoms reported Gastrointestinal: no symptoms reported Genitourinary: no symptoms reported Musculoskeletal: no symptoms reported Skin: no symptoms reported Psychiatric/Neurological: Cognitive Dysfunction, Weakness Endocrine: No Symptoms Reported Hematologic/Lymphatic: No Symptoms Reported Past Vwqyfiu-Latxzw-Hokmmf Hx Immunizations Up To Date First/Initial COVID19 Vaccinat: Nov 2020 Second COVID19 Vaccination Keron: December 2020 Seasonal Allergies Seasonal Allergies: No Past Medical History Surgeries: Yes Orthopedic, Tonsillectomy Respiratory: No Sleep Apnea Currently Using CPAP: Yes Cardiac: Yes Hypertension Neurological: No Reproductive Disorders: No Sexually Transmitted Disease: No HIV/AIDS: No Benign Prostatic Hyperpl Gastrointestinal: Yes Chronic Diarrhea Musculoskeletal: Yes Arthritis Endocrine: No Loss of Vision: Bilateral Hearing Impairment: Hard of Hearing Cancer: No Adverse Reaction/Blood Tranf: No (HAS BLOOD WITH NO REACTION) Physical Exam Vital Signs Vital Signs - First Documented 11/25/22 20:40 Temp 37.0 Pulse 102 Resp 18 B/P (MAP) 158/60 (92) Pulse Ox 97 O2 Delivery Room Air Capillary Refill : Height, Weight, BMI Height: 5'4.00" Weight: 220lbs. 0.0oz. [id number]; 41.00 BMI Method: General Appearance: WD/WN, no apparent distress, obese HEENT: PERRL/EOMI, normal ENT inspection Neck: non-tender, full range of motion, supple, normal inspection Respiratory: chest non-tender, lungs clear, normal breath sounds Cardiovascular: regular rate, rhythm, other (Bilateral pedal edema present with healed surgical scars on the knee and legs) Gastrointestinal: normal bowel sounds, non tender, soft Back: normal inspection, no vertebral tenderness Extremities: normal range of motion Neurologic/Psychiatric: alert, normal mood/affect, abnormal gait (Patient seems to be unable to move his right leg appropriately), motor weakness (Right-sided lower extremity has 4/5 strength and left-sided lower extremity is 5/5. Upper extremities are both 5/5.), other (No sensory deficits throughout) Crainal Nerves: normal hearing, PERRL, other (Patient's speech is clear but it is slow, and patient appears confused) Coordination/Gait: normal finger to nose (Patient is able to do it with both hands however it is very slow), abnormal gait Motor/Sensory: no sensory deficit, no pronator drift, negative Babinski's sign Reflexes: 4+ Bicep (R), 4+ Bicep (L), 4+ Tricep (R), 4+ Tricep (L), 4+ Knee (R), 4+ Knee (L), 4+ Ankle (R), 4+ Ankle (L) Skin: normal color Stroke NIH Stroke Scale Assessment Select: Initial Level of Consciousness: 0=Alert (0), Level of Consciousness- Questions: 1=Answers one question (1), LOC Commands: 0=Performs both tasks (0), Gaze: Normal (0), Visual Abernathy: 0=No visual loss (0), Facial Movement (Facial Paresis): 0=Normal symmetrical mnt (0), Motor Function-Arms Right: 0=No drift (0), Motor Function-Arms Left: 0=No drift (0), Motor Function-Legs Right: 1=Drift (1), Motor Function-Legs Left: 0=No drift (0), Limb Ataxia: 1=Present in one limb (1), Sensory: 0=Normal:no loss (0), Best Language: 0=No aphasia (0), Dysarthria: 0=Normal (0), Extinction & Inattention: 1=V isual,tactile,auditory (1), Total: 4 Progress/Results/Core Measures Results/Orders Lab Results Laboratory Tests Test 11/25/22 20:53 11/25/22 20:58 11/25/22 21:28 11/25/22 22:13 Range/Units White Blood Count 11.8 H 4.3-11.0 10^3/uL Red Blood Count 4.46 4.30-5.52 10^6/uL Hemoglobin 14.3 13.3-17.7 g/dL Hematocrit 40 40-54 % Mean Corpuscular Volume 89 80-99 fL Mean Corpuscular Hemoglobin 32 25-34 pg Mean Corpuscular Hemoglobin Concent 36 32-36 g/dL Red Cell Distribution Width 14.9 H 10.0-14.5 % Platelet Count 303 130-400 10^3/uL Mean Platelet Volume 9.0 9.0-12.2 fL Immature Granulocyte % (Auto) 0 % Neutrophils (%) (Auto) 76 H 42-75 % Lymphocytes (%) (Auto) 3 L 12-44 % Monocytes (%) (Auto) 19 H 0-12 % Eosinophils (%) (Auto) 1 0-10 % Basophils (%) (Auto) 0 0-10 % Neutrophils # (Auto) 9.0 H 1.8-7.8 10^3/uL Lymphocytes # (Auto) 0.4 L 1.0-4.0 10^3/uL Monocytes # (Auto) 2.3 H 0.0-1.0 10^3/uL Eosinophils # (Auto) 0.1 0.0-0.3 10^3/uL Basophils # (Auto) 0.1 0.0-0.1 10^3/uL Immature Granulocyte # (Auto) 0.1 0.0-0.1 10^3/uL Neutrophils % (Manual) 78 % Lymphocytes % (Manual) 6 % Monocytes % (Manual) 14 % Eosinophils % (Manual) 2 % Prothrombin Time 13.0 12.2-14.7 SEC INR Comment 0.9 0.8-1.4 Activated Partial Thromboplast Time 27 24-35 SEC Sodium Level 136 135-145 MMOL/L Potassium Level 4.7 3.6-5.0 MMOL/L Chloride Level 100 98-107 MMOL/L Carbon Dioxide Level 20 L 21-32 MMOL/L Anion Gap 16 H 5-14 MMOL/L Blood Urea Nitrogen 50 H 7-18 MG/DL Creatinine 1.85 H 0.60-1.30 MG/DL Estimat Glomerular Filtration Rate 38 BUN/Creatinine Ratio 27 Glucose Level 130 H 70-105 MG/DL Calcium Level 9.3 8.5-10.1 MG/DL Corrected Calcium 8.9 8.5-10.1 MG/DL Magnesium Level 1.6 1.6-2.4 MG/DL Total Bilirubin 0.4 0.1-1.0 MG/DL Aspartate Amino Transf (AST/SGOT) 33 5-34 U/L Alanine Aminotransferase (ALT/SGPT) 37 0-55 U/L Alkaline Phosphatase 79 40-136 U/L Troponin I < 0.30 <0.30 NG/ML Total Protein 7.4 6.4-8.2 GM/DL Albumin 4.5 3.2-4.5 GM/DL Serum Alcohol < 10 <10 MG/DL Urine Color YELLOW Urine Clarity CLEAR Urine pH 5.5 5-9 Urine Specific [place] 1.020 1.016-1.022 Urine Protein NEGATIVE NEGATIVE Urine Glucose (UA) NEGATIVE NEGATIVE Urine Ketones NEGATIVE NEGATIVE Urine Nitrite NEGATIVE NEGATIVE Urine Bilirubin NEGATIVE NEGATIVE Urine Urobilinogen 0.2 < = 1.0 MG/DL Urine Leukocyte Esterase NEGATIVE NEGATIVE Urine RBC (Auto) NEGATIVE NEGATIVE Urine RBC NONE /HPF Urine WBC NONE /HPF Urine Squamous Epithelial Cells NONE /HPF Urine Crystals NONE /LPF Urine Bacteria NEGATIVE /HPF Urine Casts PRESENT /LPF Urine Hyaline Casts 0-2 H /LPF Urine Mucus NEGATIVE /LPF Urine Culture Indicated NO Urine Opiates Screen NEGATIVE NEGATIVE Urine Oxycodone Screen NEGATIVE NEGATIVE Urine Methadone Screen NEGATIVE NEGATIVE Urine Propoxyphene Screen NEGATIVE NEGATIVE Urine Barbiturates Screen NEGATIVE NEGATIVE Ur Tricyclic Antidepressants Screen NEGATIVE NEGATIVE Urine Phencyclidine Screen NEGATIVE NEGATIVE Urine Amphetamines Screen NEGATIVE NEGATIVE Urine Methamphetamines Screen NEGATIVE NEGATIVE Urine Benzodiazepines Screen NEGATIVE NEGATIVE Urine Cocaine Screen NEGATIVE NEGATIVE Urine Cannabinoids Screen NEGATIVE NEGATIVE Influenza Type A (RT-PCR) Not Detected Not Detecte Influenza Type B (RT-PCR) Not Detected Not Detecte SARS-CoV-2 RNA (RT-PCR) Detected H Not Detecte My Orders Orders - JAYSON SAMUELS MD Ct Head Wo-R/O Stroke (11/25/22 20:42) Chest 1 View Ap/Pa Only (11/25/22 20:43) Alcohol (11/25/22 20:53) Cbc With Automated Diff (11/25/22 20:53) Comprehensive Metabolic Panel (11/25/22 20:53) Drug Screen Stat (Urine) (11/25/22 20:53) Lactic Acid Analyzer (11/25/22 20:53) Magnesium (11/25/22 20:53) Protime With Inr (11/25/22 20:53) Partial Thromboplastin Time (11/25/22 20:53) Thyroid Analyzer (11/25/22 20:53) Ua Culture If Indicated (11/25/22 20:53) Troponin I Fs (11/25/22 20:53) Thyroid Analyzer (11/25/22 20:58) Manual Differential (11/25/22 20:53) Ed Iv/Invasive Line Start (11/25/22 21:06) Singer Cath (11/25/22 21:22) Ct Angio Head/Neck (11/25/22 21:48) Iohexol Injection (Omnipaque 350 Mg/Ml 1 (11/25/22 22:00) Di Iv Start (Assessment) .IV start (11/25/22 21:52) Received Contrast (Hold Metformin- Contr (11/25/22 22:00) Ns (Ivpb) (Sodium Chloride 0.9% Ivpb Bag (11/25/22 22:00) Continuous Ekg Monitoring (11/25/22 22:08) Ekg Tracing (11/25/22 22:08) Covid 19 Inhouse Test (11/25/22 22:11) Influenza A And B By Pcr (11/25/22 22:11) Ed Iv/Invasive Line Start (11/25/22 22:24) Ns Iv 1000 Ml (Sodium Chloride 0.9%) (11/25/22 22:30) Ns Iv 1000 Ml (Sodium Chloride 0.9%) (11/25/22 22:28) Clopidogrel Tablet (Plavix Tablet) (11/25/22 22:45) Aspirin Chewable Tablet (Baby Aspirin Ch (11/25/22 22:45) Dysphagia Screening Tool Q10MX1 (11/25/22 22:41) Ed Admission (Communication) (11/25/22 23:03) Medications Given in ED Current Medications Medications Dose Ordered Sig/Barbara Route Start Time Stop Time Status Last Admin Dose Admin Aspirin 324 mg ONCE ONCE PO 11/25/22 22:45 11/25/22 22:46 UNV 11/25/22 22:54 324 MG Clopidogrel Bisulfate 300 mg ONCE ONCE PO 11/25/22 22:45 11/25/22 22:46 UNV 11/25/22 22:54 300 MG Iohexol 75 ml ONCE ONCE IV 11/25/22 22:00 11/25/22 22:01 DC 11/25/22 22:01 75 ML Sodium Chloride 100 ml ONCE ONCE IV 11/25/22 22:00 11/25/22 22:01 DC 11/25/22 22:01 100 ML Vital Signs/I&O 11/25/22 20:40 Temp 37.0 Pulse 102 Resp 18 B/P (MAP) 158/60 (92) Pulse Ox 97 O2 Delivery Room Air Progress Progress Note : Progress Note 1. CVA/ TIA: - CT HEAD: No acute findings, with chronic appearing lacunar infarct in the internal capsule on the right. 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 Stenosis of the bilateral cavernous internal carotid arteries, supraclinoid left internal carotid artery and distal M1 segments of the bilateral middle cerebral arteries. Bilateral carotid bulb plaque without a hemodynamically significant stenosis - CXR: unreamrkable - Troponin: undetected - WBC is 11.8 - UA normal -Dysphagia screen normal -Patient's symptoms seem to get better, with right lower leg deficit improving to 5/5 strength, when reassessment was done later. TIA versus CVA - Discussed with [facility] neurology: Dr. Soriano, advised ASA 324 mg and Plavix 300mg STAT and continue with low dose ( ASA 81mg and Plavix 75mg ) tomorrow. Advised full stroke work-up with MRI, ECHO, labs, and [facility] neurology consult as needed. Discussed CTA head and neck with neurology as well, and no intervention needed at this time. Dr Soriano also stated that since the pt woke up with these symptoms, we do not know if he developed it before or during his nap, so the time is unknown, and so out of window for TPA. -Discussed with hospitalist and accepted to ICU for admission. 2. ACUTE KIDNEY INJURY: - s. creatinine is 1.85 with BUN of 50 - NS IVF bolus in ER 3. 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 Stenosis of the bilateral cavernous internal carotid arteries, supraclinoid left internal carotid artery and distal M1 segments of the bilateral middle cerebral arteries. Bilateral carotid bulb plaque without a hemodynamically significant stenosis [facility] [place], [place] NAME: [facility] REC#: [id number] PT STATUS: REG ER : 1950 PHYSICIAN: JAYSON SAMUELS MD ADMIT DATE: 11/25/22/ER FS Draft Date of Exam:11/25/22 CT HEAD WO-R/O STROKE PROCEDURE: CT head w/o r/o stroke. TECHNIQUE: Multiple contiguous axial images were obtained through the brain without the use of intravenous contrast. Auto Exposure Controls were utilized during the CT exam to meet ALARA standards for radiation dose reduction. INDICATION: Altered mental status. FINDINGS: There is prominence of the ventricles and sulci. There is some chronic microvascular ischemic disease. There is a chronic appearing lacunar infarct in the internal capsule on the right. There is no hydrocephalus. There is no midline shift. There is no mass, hemorrhage or extra-axial fluid collection. IMPRESSION: Atrophy and some chronic microvascular ischemic disease with what appears to be a chronic appearing lacunar infarct in the internal capsule on the right. If high clinical concern for an acute CVA persists, further evaluation with MRI should be considered. Dictated on workstation # [id number] Dict: 11/25/222103 Trans: 11/25/222123 [facility] [id number] Interpreted by: LUZ CARBONE MD Electronically signed by: [facility] [place] [place] NAME: [facility] REC#: [id number] PT STATUS: REG ER : 1950 PHYSICIAN: JAYSON SAMUELS MD ADMIT DATE: 11/25/22/ER FS Draft Date of Exam:11/25/22 CHEST 1 VIEW AP/PA ONLY INDICATION: Stroke. FINDINGS: There is generalized cardiomegaly and mild central pulmonary venous congestion. The mediastinal configuration is unremarkable. There is no pleural effusion, pneumothorax, or pneumonia. The visualized osseous structures are unremarkable. IMPRESSION: Cardiomegaly and mild central pulmonary venous congestion. Dictated on workstation # [id number] Dict: 11/25/222119 Trans: 11/25/222120 [facility] [id number] Interpreted by: LUZ CARBONE MD Electronically signed by: Departure Communication (Admissions) Time/Spoke to Admitting Phy: 22:[address] Ramos, and accepted to ICU Time/Spoke to Consulting Phy: 22:35 Discussed with neurology: Dr. Soriano, advised ASA 324 mg and Plavix 300mg STAT and continue with low dose tomorrow. Advised full stroke work-up with MRI, ECHO, labs, after admission. Impression Primary Impression: COVID-19 Additional Impressions: TIA (transient ischemic attack) CVA (cerebral vascular accident) Acute kidney injury Disposition: 30 STILL A PATIENT Condition: Improved Admissions Decision to Admit Reason: Admit from ER (General) Decision to Admit/Date: Nov 25, 2022 Time/Decision to Admit Time: 22:00 Transfer Method of Transfer: EMS Departure-Patient Inst. Referrals: CLARY RIVERA APRN (PCP) Primary Care Physician [facility] (Family) Primary Care Physician JAYSON SAMUELS MD Nov 25, 2022 20:42
[2022-11-25 20:58] LABS: BASOPHILS # (AUTO) 0.1 10^3/uL (0.0-0.1); BASOPHILS % (AUTO) 0 % (0-10); EOSINOPHILS # (AUTO) 0.1 10^3/uL (0.0-0.3); EOSINOPHILS % (AUTO) 1 % (0-10); HEMATOCRIT 40 % (40-54); HEMOGLOBIN 14.3 g/dL (13.3-17.7); LYMPHOCYTES # (AUTO) 0.4 10^3/uL (1.0-4.0); LYMPHOCYTES % (AUTO) 3 % (12-44); MEAN CORPUSCULAR HEMOGLOBIN 32 pg (25-34); MEAN CORPUSCULAR HGB CONC 36 g/dL (32-36); MEAN CORPUSCULAR VOLUME 89 fL (80-99); MONOCYTES # (AUTO) 2.3 10^3/uL (0.0-1.0); MONOCYTES % (AUTO) 19 % (0-12); NEUTROPHILS % (AUTO) 76 % (42-75); PLATELET COUNT 303 10^3/uL (130-400); WHITE BLOOD COUNT 11.8 10^3/uL (4.3-11.0)
[2022-11-25 21:02] LABS: INR 0.9 (0.8-1.4)
[2022-11-25 21:14] LABS: ALANINE AMINOTRANSFERASE 37 U/L (0-55); ALBUMIN 4.5 GM/DL (3.2-4.5); ALKALINE PHOSPHATASE 79 U/L (40-136); BILIRUBIN,TOTAL 0.4 MG/DL (0.1-1.0); BUN/CREATININE RATIO 27; CALCIUM 9.3 MG/DL (8.5-10.1); CARBON DIOXIDE 20 MMOL/L (21-32); CHLORIDE 100 MMOL/L (98-107); CREATININE SERUM 1.85 MG/DL (0.60-1.30); GFR ESTIMATED 38; GLUCOSE 130 MG/DL (70-105); MAGNESIUM 1.6 MG/DL (1.6-2.4); POTASSIUM 4.7 MMOL/L (3.6-5.0); SODIUM 136 MMOL/L (135-145); TOTAL PROTEIN 7.4 GM/DL (6.4-8.2)
[2022-11-25 21:18] LABS: EOSINOPHILS % (MANUAL) 2 %; LYMPHOCYTES % (MANUAL) 6 %; MONOCYTES % (MANUAL) 14 %; NEUTROPHILS % (MANUAL) 78 %
--- NOTE | 2022-11-25 21:21 | Diagnostic Imaging Report ---
INDICATION: Stroke. FINDINGS: There is generalized cardiomegaly and mild central pulmonary venous congestion. The mediastinal configuration is unremarkable. There is no pleural effusion, pneumothorax, or pneumonia. The visualized osseous structures are unremarkable. IMPRESSION: Cardiomegaly and mild central pulmonary venous congestion. Dictated by: Dictated on workstation # [id number]
--- NOTE | 2022-11-25 21:25 | Diagnostic Imaging Report ---
PROCEDURE: CT head w/o r/o stroke. TECHNIQUE: Multiple contiguous axial images were obtained through the brain without the use of intravenous contrast. Auto Exposure Controls were utilized during the CT exam to meet ALARA standards for radiation dose reduction. INDICATION: Altered mental status. FINDINGS: There is prominence of the ventricles and sulci. There is some chronic microvascular ischemic disease. There is a chronic appearing lacunar infarct in the internal capsule on the right. There is no hydrocephalus. There is no midline shift. There is no mass, hemorrhage or extra-axial fluid collection. IMPRESSION: Atrophy and some chronic microvascular ischemic disease with what appears to be a chronic appearing lacunar infarct in the internal capsule on the right. If high clinical concern for an acute CVA persists, further evaluation with MRI should be considered. Dictated by: Dictated on workstation # [id number]
[2022-11-25 21:31] LABS: BILIRUBIN,URINE NEGATIVE (NEGATIVE); CLARITY,URINE CLEAR; COLOR,URINE YELLOW; GLUCOSE, URINE (UA) NEGATIVE (NEGATIVE); KETONES,URINE NEGATIVE (NEGATIVE); LEUKOCYTE ESTERASE ,URINE NEGATIVE (NEGATIVE); NITRITE,URINE NEGATIVE (NEGATIVE); PH,URINE 5.5 (5-9); PROTEIN,URINE NEGATIVE (NEGATIVE)
[2022-11-25 21:32] LABS: BACTERIA,URINE NEGATIVE /HPF
[2022-11-25 21:33] LABS: HYALINE CASTS, URINE 0-2 /LPF
[2022-11-25] MEDS ORDERED: IOHEXOL 350 MG/ML 100 ML (OMNIPAQUE 350) VIAL IV ONE (22:00)
[2022-11-25] MEDS ORDERED: NS 100 ML (IVPB) BAG IV ONE (22:00)
[2022-11-25] MEDS ORDERED: HOLD METFORMIN - RECEIVED CONTRAST 20 ML VIAL IV SCH (22:00)
[2022-11-25 22:25] LABS: AMPHETAMINE SCREEN, URINE NEGATIVE (NEGATIVE); BARBITURATE SCREEN URINE NEGATIVE (NEGATIVE); BENZODIAZEPINES SCREEN URINE NEGATIVE (NEGATIVE); CANNABINOID SCREEN, URINE NEGATIVE (NEGATIVE); COCAINE SCREEN URINE NEGATIVE (NEGATIVE); METHADONE STAT NEGATIVE (NEGATIVE); OPIATE SCREEN URINE NEGATIVE (NEGATIVE); OXYCODONE STAT NEGATIVE (NEGATIVE); PROPOXYPHENE STAT NEGATIVE (NEGATIVE); TRICYCLIC ANTIDEPRESSANTS SCRE NEGATIVE (NEGATIVE)
[2022-11-25] MEDS ORDERED: NS IV 1000 ML 1,000 ML ONE (22:28)
[2022-11-25] MEDS ORDERED: NS IV 1000 ML 1,000 ML IV SCH (22:30)
[2022-11-25] MEDS ORDERED: ASPIRIN 81 MG CHEW (CHILDREN'S ASA) PO ONE (22:45)
[2022-11-25] MEDS ORDERED: CLOPIDOGREL 300 MG (PLAVIX) TABLET PO ONE ×2 (22:45→22:52)
[2022-11-25] MEDS ORDERED: ASPIRIN 81 MG CHEW (CHILDREN'S ASA) ONE (22:52)
[2022-11-26 02:39] VITALS: BP 158/60
[2022-11-26] MEDS ORDERED: RT-IPRATROPIUM (ATROVENT) 0.5MG/2.5ML AMP IH PRN (02:45)
[2022-11-26] MEDS ORDERED: RT-ALBUTEROL SULF 2.5 MG/3 ML PRE-MIX VIAL INH PRN (02:45)
[2022-11-26] MEDS ORDERED: MELATONIN 3 MG TABLET PO PRN (04:00)
[2022-11-26] MEDS ORDERED: NS IV 500 ML 500 ML IV PRN (04:30)
--- NOTE | 2022-11-26 05:04 | Tele-ICU Progress Note ---
Progress Note 72M with JOEY on CPAP, HTN, obesity presented with confusion and inability to walk. Wif reported he was working in the [place], came in to take a nap. Woke in the evening and found him leaning over the side of the bed stating he did not feel well. He appeared confused, unable to answer basic questions and had difficulty ambulating. CT head without acute findings, with chronic appearing lacunar infarct in the internal capsule on the right. CTA with multifocal stenosis most severe involving the right posterior cerebral artery in multiple locations from its origin with near occlusion and minimal irregular distal runoff. Stenosis of the bilateral cavernous internal carotid arteries, supraclinoid left internal carotid artery and distal M1 segments of the bilateral middle cerebral arteries. Bilateral carotid bulb plaque without a hemodynamically significant stenosis. Current NIH has improved to 4 with significant RLE weakness and dysdiadokinesis/ataxia. Mental status has improved. Does appear confused at time but answers questions appropriately. - CVA: not seen on plain CT but given significant signs of stroke it is likely just not seen on CT yet - can take up to 3 days. MRI in AM. [facility] neurology consulted. Patient given ASA, plavix. Plan for MRI, Echo in AM. Permissive HTN to 220. Given unknown last well, not a candidate for intervention. - HTN: hold home cardizem for permissive hypertension. - JENNIFER: creatinine 1.85. IVF given in ED. Monitor renal function and hypotension. Did receive contrast. Monitor at least 3-5 days of renal function due to delay in POLO presentation. - COVID: incidental finding. Doing well from respiratory standpoint. May have contributed to hypercoag state. No additional interventions indicated at this time. Patient assessed via real-time audiovisual communication system. CCT18 min Focused Exam Height, Weight, BMI Height: 5'4.00" Weight: 220lbs. 0.0oz. 99.004988pg; 41.05 BMI Method: HALIMA DAVID MD Nov 26, 2022 05:04
[2022-11-26 05:13] LABS: BASOPHILS % (AUTO) 0 % (0-10); EOSINOPHILS % (AUTO) 0 % (0-10); HEMATOCRIT 39 % (40-54); HEMOGLOBIN 13.4 g/dL (13.3-17.7); LYMPHOCYTES # (AUTO) 0.5 10^3/uL (1.0-4.0); LYMPHOCYTES % (AUTO) 5 % (12-44); MEAN CORPUSCULAR HEMOGLOBIN 31 pg (25-34); MEAN CORPUSCULAR HGB CONC 34 g/dL (32-36); MEAN CORPUSCULAR VOLUME 91 fL (80-99); MEAN PLATELET VOLUME 9.2 fL (9.0-12.2); MONOCYTES % (AUTO) 27 % (0-12); NEUTROPHILS # (AUTO) 7.5 10^3/uL (1.8-7.8); NEUTROPHILS % (AUTO) 68 % (42-75); PLATELET COUNT 276 10^3/uL (130-400); WHITE BLOOD COUNT 11.1 10^3/uL (4.3-11.0)
[2022-11-26 05:25] LABS: ALBUMIN 4.1 GM/DL (3.2-4.5); CHLORIDE 105 MMOL/L (98-107); POTASSIUM 4.1 MMOL/L (3.6-5.0); SODIUM 136 MMOL/L (135-145)
[2022-11-26 05:26] LABS: CALCIUM 8.7 MG/DL (8.5-10.1)
[2022-11-26 05:27] LABS: GLUCOSE 114 MG/DL (70-105); TOTAL PROTEIN 7.2 GM/DL (6.4-8.2)
[2022-11-26 05:29] LABS: BILIRUBIN,TOTAL 0.5 MG/DL (0.1-1.0); CARBON DIOXIDE 18 MMOL/L (21-32)
[2022-11-26 05:31] LABS: ALKALINE PHOSPHATASE 64 U/L (40-136); CREATININE SERUM 1.39 MG/DL (0.60-1.30); GFR ESTIMATED 53; PHOSPHORUS 3.3 MG/DL (2.3-4.7)
[2022-11-26 05:32] LABS: BUN/CREATININE RATIO 27
[2022-11-26 05:34] LABS: ALANINE AMINOTRANSFERASE 42 U/L (0-55); MAGNESIUM 1.7 MG/DL (1.6-2.4)
[2022-11-26] MEDS: MAGNESIUM 1 GM/100 ML IVPB 100 ML IV SCH ×3 (05:40→07:58)
[2022-11-26] MEDS: CATHETER FLUSH 10 ML SYR IVP SCH ×3 (05:41→20:51)
[2022-11-26] MEDS ORDERED: KCL 20 MEQ TAB (K-DUR) PO SCH (06:00)
[2022-11-26] MEDS ORDERED: POTASSIUM CL 10MEQ/50ML IVPB 50 ML IV SCH (06:00)
[2022-11-26] MEDS ORDERED: MAGNESIUM 1 GM/100 ML IVPB 100 ML IV SCH (06:00)
[2022-11-26 08:06] LABS: TRIGLYCERIDES 89 MG/DL (<150); VLDL CHOLESTEROL 18 MG/DL (5-40)
[2022-11-26] MEDS: ASPIRIN E.C. 81 MG (ECOTRIN) TAB PO SCH (08:07)
[2022-11-26] MEDS: CLOPIDOGREL 75 MG (PLAVIX) TABLET PO SCH (08:07)
[2022-11-26 08:11] LABS: CHOLESTEROL 129 MG/DL (< 200)
[2022-11-26 08:12] LABS: HDL CHOLESTEROL 36 MG/DL (40-60)
--- NOTE | 2022-11-26 08:30 | Diagnostic Imaging Report ---
PROCEDURE: CT angiography of the head and CT angiography of the neck with and without contrast. TECHNIQUE: Contiguous noncontrast images were obtained from the skull base through the vertex. After intravenous contrast administration, helical CT angiography of the neck was performed. Source data was reformatted into 3D MIP projections. Delayed post contrast acquisition was also obtained. Auto Exposure Controls were utilized during the CT exam to meet ALARA standards for radiation dose reduction. INDICATION: Altered mental status COMPARISON: CT head from the same day FINDINGS: Many of the images are suboptimal due to motion artifact and low contrast. There is moderate atherosclerosis in the right common carotid artery distally, with about 50% narrowing. The right internal carotid artery demonstrates moderate atherosclerosis, and may have moderate narrowing in the cavernous portion. There is moderate atherosclerosis in the distal left internal carotid artery which may also have moderate narrowing in the cavernous portion. There is mild atherosclerosis at the left CCA without stenosis. The vertebral arteries are codominant. There is mild atherosclerosis but no high-grade stenosis or occlusion is seen. The anterior cerebral arteries appear normal. The anterior communicating artery appears patent. There is moderate focal stenosis in the distal right MCA M1 segment. The left MCA appears normal. The right posterior communicating artery is not well seen, nor is the left. There is focal high-grade stenosis at the proximal right posterior cerebral artery. 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 The left posterior communicating artery appears patent. The superior cerebellar arteries are normal. The basilar artery appears normal. No enhancing lesions are seen. There does appear to be generalized parenchymal volume loss. There is an old right basal ganglia lacunar infarct. The soft tissues about the neck demonstrate no acute abnormality. IMPRESSION: 1. Multiple areas of stenosis, most pronounced in the right posterior cerebral artery, but also in the right MCA and the cavernous internal carotid arteries. No occlusion is seen. No significant changes from the preliminary report. Dictated by: Dictated on workstation # [id number]
[2022-11-26] MEDS: LACTATED RINGERS 1,000 ML IV SCH ×2 (08:56→19:48)
[2022-11-26] MEDS: GABAPENTIN 300 MG (NEURONTIN) CAP PO SCH ×2 (08:56→19:48)
--- NOTE | 2022-11-26 09:17 | Physical Therapy Evaluation ---
PT Evaluation-General Medical Diagnosis Admission Date Nov 26, 2022 at 02:12 Medical Diagnosis: Covid/TIA Onset Date: Nov 26, 2022 Therapy Diagnosis Therapy Diagnosis: generalized weakness/debility Height/Weight Height (Feet): 5 Height (Inches): 4.00 Weight (Pounds): 220 Weight (Ounces): 0.0 Precautions Precautions/Isolations: Airborne Isolation, Fall Prevention, Pressure Ulcer Referral Physician: Courtney Reason for Referral: Evaluation/Treatment Medical History Pertinent Medical History: Arthritis, HTN Current History ER secondary to possible stroke with inability to ambulate Reviewed History: Yes Social History Home: Single Level Current Living Status: Spouse Prior Prior Level of Function SCALE: Activities may be completed with or without assistive devices. 6-Mdykbvgxio-uemvbde completes the activity by him/herself with no assistance from a helper. 5-Set-up or Clean-up Assistance-helper sets up or cleans up; patient completes activity. [place] assists only prior to or following the activity. 4-Supervision or Touching Assistance-helper provides verbal cues and/or touching/steadying and/or contact guard assistance as patient completes activity. Assistance may be provided throughout the activity or intermittently. 3-Partial/Moderate Assistance-helper does LESS THAN HALF the effort. [place] lifts, holds or supports trunk or limbs, but provides less than half the effort. 2-Substantial/Maximal Assistance-helper does MORE THAN HALF the effort. [place] lifts or holds trunk or limbs and provides more than half the effort. 1-Sebqfkvoz-fdzltk does ALL the effort. Patient does none of the effort to complete the activity. Or, the assistance of 2 or more helpers is required for the patient to complete the activity. If activity was not attempted, code reason: 7-Patient Refused. 9-Not Applicable-not attempted and the patient did not perform the activity before the current illness, exacerbation or injury. 10-Not Attempted due to Environmental Limitations-(lack of equipment, weather restraints, etc.). 88-Not Attempted due to Medical Conditions or Safety Concerns. Bed Mobility: 6 Transfers (B,C,W/C): 6 Gait: 6 Stairs: 6 Indoor Mobility (Ambulation): Independent Stairs: Independent Prior Devices Use: None per report, patient was working fence prior to episode PT Evaluation-Current Subjective Patient is verbal, however, has difficulty with following simple direction. Objective Patient Orientation: Person Attachments: Singer Catheter, IV ROM/Strength ROM Lower Extremities bilateral LE WFL Strength Lower Extremities 3+/5 grossly bilateral LE ( patient unable to follow direction for formal testing) Integumentary/Posture Integumentary refer to nursing notes Bowel Incontinence: Yes Bladder Incontinence: Singer Cath Posture WFL Neuromuscular (Tone, Coordination, Reflexes) grossly intact Sensory Vision: Functional Hearing: Functional Transfers Sit to Lying (QC): 2 Lying to Sitting/Side of Bed(Q: 2 Sit to Stand (QC): 2 Gait Mode of Locomotion: Walk Anticipated Mode of Locomotion: Walk Distance: 5 side steps Gait Assistive Device: None Comments/Gait Description PT assist due to patient is unable to follow simple direction. patient required tactile cues to perform Balance Sitting Static: Normal Sitting Dynamic: Normal Standing Static: Fair Standing Dynamic: Fair Assessment/Needs Patient will benefit from skilled PT to address functional strength and mobility. Patient currently is having difficulty with following simple direction. RN present during session. PT requests OT and ST orders. Rehab Potential: Guarded PT Short Term Goals Short Term Goals Time Frame: Dec 08, 2022 Roll Left & Right: 4 Sit to lyin Lying to sitting on side of be: 4 Sit to stand: 3 Chair/ugx-jm-nlvpj transfer: 3 Toilet transfer: 3 Walk 10 feet: 3 Walk 50 feet with two turns: 3 PT Lift Operator Goals Lift Operator Goals PT Retirement Goals Time Frame: Dec 15, 2022 Roll Left & Right (QC): 6 Sit to Lying (QC): 6 Lying-Sitting on Side/Bed(QC): 6 Sit to Stand (QC): 6 Chair/Aqf-so-Wnnba Xfer(QC): 6 Toilet Transfer (QC): 6 Walk 10 feet (QC): 6 Walk 50ft with 2 Turns (QC): 6 Walk 150 ft (QC): 6 PT Plan Problem List Problem List: Activity Tolerance, Functional Strength, Safety, Balance, Gait, Transfer, Bed Mobility Treatment/Plan Treatment Plan: Continue Plan of Care Treatment Plan: Bed Mobility, Education, Functional Activity Anthony, Functional Strength, Gait, Safety, Therapeutic Exercise, Transfers Treatment Duration: Dec 15, 2022 Frequency: 6 times per week Estimated Hrs Per Day: .25 hour per day Time Time In: 800 Time Out: 817 DATE: Nov 26, 2022 Total Billed Treatment Time: 17 Total Billed Treatment 1 visit EVMod 17 min MOOKIE GARCÍA PT Nov 26, 2022 09:17
[2022-11-26] MEDS: ACETAMINOPHEN 325 MG TABLET PO PRN ×2 (12:37→20:41)
--- NOTE | 2022-11-26 12:49 | ST Cognitive Linguistic Eval ---
Speech Evaluation-General Medical Diagnosis Covid/TIA Onset Date: Nov 26, 2022 Therapy Diagnosis Therapy Diagnosis: Altered Mental Status/Receptive Language Deficit Precautions Precautions: Fall Precautions/Isolations: Airborne Isolation, Fall Prevention Referral Referring Physician: Dr. Helton Reason for Referral: Evaluation/Treatment Medical History Pertinent Medical History: Arthritis, HTN Reviewed History: Yes Social History Current Living Status: Spouse Speech PLF-Current Status Prior Level of Function Per patient's family members, the patient did not display difficulty with speech, language, or cognition prior to his current hospitalization. Subjective The patient was lying in bed, awake and alert, upon entrance to his room by the clinician. The patient has two family members present at bedside. The patient made eye contact when the clinician provided a verbal greeting. The patient squints and reports a headache, the RN was notified. Per patient's family, the patient is "able to communicate, it just takes longer." The patient consumes thin liquids via straw throughout the session without s/s of suspected aspiration. Language Eval: Auditory Comprehends Simple Yes/No Ques: Functional (Simple, with extended time for responses. ) Indent/Objects Multiple Abernathy: Functional (With extended response time.) Follows 1-Step Commands: Moderate (Inconsistent and intermittent, extended response time necessary.) Follows General Conversations: Moderate Language Eval: Verbal Language Produces Auto, Serial Info: Functional Imitates Simple Words/Phrases: Functional Word Finding: Moderate Requests Basic Needs: Moderate States Basic Personal Info: Functional Extended response time is necessary for accuracy with any question provided by the clinician. Cognitive Patient Orientation The patient was oriented to location, independently. Yes and no questions were required for accurate orientation to year and month. Objective Oral Motor/Speech Production The patient did not display dysarthria or apraxia of speech at this time. The p atient was 100% intelligible in known and unknown contexts. Impression The patient displayed communication impairments most consistent with a receptive language disorder. However, the patient displayed inconsistent errors throughout the evaluation which closely mirrored confusion. The patient would benefit from simple yes and no questions, as well as, simple, one-step commands with a direct model. Skilled speech pathology to continue to monitor the patient and provide additional evaluation. Speech Short Term Goals Short Term Goals Short Term Goals 1. The patient will follow simple one-step commands, in the absence of a visual cue/direct modeling, with 90% accuracy. Time Frame-STG: Four Days. Speech Mcc Goals Core Oven Tender Goals 1. The patient will demonstrate increased cognitive linguistic skills for improved safety with discharge to the least restrictive environment. Time Frame: One Week. Speech-Plan Treatment Plan Speech Therapy Treatment Plan: Continue Plan of Care Treatment Duration: Nov 30, 2022 Frequency: 4 times per week Estimated Hrs Per Day: .25 hour per day Rehab Potential: Guarded Pt/Family Agrees to Plan: Yes Safety Risks/Education Teaching Recipient: Patient, Family Teaching Methods: Discussion Response to Teaching: Verbalize Understanding (Family members.) Education Topics Provided: Results, Recommendations, Plan of Care Time Speech Therapy Time In: 12:05 Speech Therapy Time Out: 12:30 DATE: Nov 26, 2022 Total Billed Time: 25 Billed Treatment Time 1, BRENDEN POWERS [facility] Nov 26, 2022 12:49
[2022-11-26] MEDS ORDERED: DILT300C49 PO (15:06)
[2022-11-26] MEDS ORDERED: FURO20TA4 PO (15:06)
[2022-11-26] MEDS ORDERED: MELO7.5T46 PO (15:06)
[2022-11-26] MEDS ORDERED: ALLO300T2 PO (15:06)
[2022-11-26] MEDS ORDERED: GABA300C PO (15:06)
[2022-11-26] MEDS ORDERED: MULT-1136 PO (15:06)
[2022-11-26] MEDS ORDERED: TMSL.4C PO (15:06)
[2022-11-26] MEDS ORDERED: MTP25TSR PO (15:06)
--- NOTE | 2022-11-26 15:08 | Occ Therapy Progress Note ---
Therapy Progress Note OT received order for eval/treat. Patient w/ Dr Campbell , OT will will return at more appropriate time HEIDI MALLORY OT Nov 26, 2022 15:08
--- NOTE | 2022-11-26 17:27 | Consultation-Cardiology ---
HPI-Cardiology Cardiology Consultation Date of Consultation 11/26/22 Date of Admission Time Seen by Provider: 17:21 Indication: CVA HPI 73-year-old gentleman with history of hypertension, hyperlipidemia, COPD. Patient is independent, was able to operate and work without difficulties. He was found by his leaning over on the side of the bed, he was not feeling well. Was unable to ambulate. Confused. He was able to answer basic question, brought to the hospital by EMS. Improved upon arrival, regain muscle strength, still having generalized weakness. No chest pain or shortness of breath were reported. No loss of consciousness. Work-up is still in progress. Blood pressure is borderline elevated. Patient was tested positive for COVID. The history was obtained by reviewing his records and monitoring him without walking to the room. Home Medications & Allergies Allergies: Coded Allergies: morphine (Verified Allergy, Unknown, 07/28/21) LISTED ON JOSR DISCHARGE ORDERS Home Medication List Reviewed: Yes RBM-Akvuly-Xdyqfy Hx Patient Social History Marital Status: Employed/Student: retired Recent Hopitalizations: No Have you traveled recently?: No Alcohol Use?: No Immunizations Up To Date Date of Influenza Vaccine: Jul 16, 2022 Past Medical History Discussed below Family Medical History Significant Family History: No Pertinent Family Hx Review of Systems-General Review of Systems Constitutional: see HPI, malaise, weakness Respiratory: no symptoms reported Cardiovascular: no symptoms reported Gastrointestinal: no symptoms reported Genitourinary: no symptoms reported Musculoskeletal: no symptoms reported Skin: no symptoms reported Reviewed Test Results Reviewed Test Results Lab Laboratory Tests Test 11/25/22 20:53 11/25/22 20:58 11/25/22 21:28 11/25/22 22:13 Range/Units White Blood Count 11.8 H 4.3-11.0 10^3/uL Red Blood Count 4.46 4.30-5.52 10^6/uL Hemoglobin 14.3 13.3-17.7 g/dL Hematocrit 40 40-54 % Mean Corpuscular Volume 89 80-99 fL Mean Corpuscular Hemoglobin 32 25-34 pg Mean Corpuscular Hemoglobin Concent 36 32-36 g/dL Red Cell Distribution Width 14.9 H 10.0-14.5 % Platelet Count 303 130-400 10^3/uL Mean Platelet Volume 9.0 9.0-12.2 fL Immature Granulocyte % (Auto) 0 % Neutrophils (%) (Auto) 76 H 42-75 % Lymphocytes (%) (Auto) 3 L 12-44 % Monocytes (%) (Auto) 19 H 0-12 % Eosinophils (%) (Auto) 1 0-10 % Basophils (%) (Auto) 0 0-10 % Neutrophils # (Auto) 9.0 H 1.8-7.8 10^3/uL Lymphocytes # (Auto) 0.4 L 1.0-4.0 10^3/uL Monocytes # (Auto) 2.3 H 0.0-1.0 10^3/uL Eosinophils # (Auto) 0.1 0.0-0.3 10^3/uL Basophils # (Auto) 0.1 0.0-0.1 10^3/uL Immature Granulocyte # (Auto) 0.1 0.0-0.1 10^3/uL Neutrophils % (Manual) 78 % Lymphocytes % (Manual) 6 % Monocytes % (Manual) 14 % Eosinophils % (Manual) 2 % Prothrombin Time 13.0 12.2-14.7 SEC INR Comment 0.9 0.8-1.4 Activated Partial Thromboplast Time 27 24-35 SEC Sodium Level 136 135-145 MMOL/L Potassium Level 4.7 3.6-5.0 MMOL/L Chloride Level 100 98-107 MMOL/L Carbon Dioxide Level 20 L 21-32 MMOL/L Anion Gap 16 H 5-14 MMOL/L Blood Urea Nitrogen 50 H 7-18 MG/DL Creatinine 1.85 H 0.60-1.30 MG/DL Estimat Glomerular Filtration Rate 38 BUN/Creatinine Ratio 27 Glucose Level 130 H 70-105 MG/DL Calcium Level 9.3 8.5-10.1 MG/DL Corrected Calcium 8.9 8.5-10.1 MG/DL Magnesium Level 1.6 1.6-2.4 MG/DL Total Bilirubin 0.4 0.1-1.0 MG/DL Aspartate Amino Transf (AST/SGOT) 33 5-34 U/L Alanine Aminotransferase (ALT/SGPT) 37 0-55 U/L Alkaline Phosphatase 79 40-136 U/L Troponin I < 0.30 <0.30 NG/ML Total Protein 7.4 6.4-8.2 GM/DL Albumin 4.5 3.2-4.5 GM/DL Serum Alcohol < 10 <10 MG/DL TSH [place] Testing 0.37 0.35-4.94 UIU/ML Urine Color YELLOW Urine Clarity CLEAR Urine pH 5.5 5-9 Urine Specific [place] 1.020 1.016-1.022 Urine Protein NEGATIVE NEGATIVE Urine Glucose (UA) NEGATIVE NEGATIVE Urine Ketones NEGATIVE NEGATIVE Urine Nitrite NEGATIVE NEGATIVE Urine Bilirubin NEGATIVE NEGATIVE Urine Urobilinogen 0.2 < = 1.0 MG/DL Urine Leukocyte Esterase NEGATIVE NEGATIVE Urine RBC (Auto) NEGATIVE NEGATIVE Urine RBC NONE /HPF Urine WBC NONE /HPF Urine Squamous Epithelial Cells NONE /HPF Urine Crystals NONE /LPF Urine Bacteria NEGATIVE /HPF Urine Casts PRESENT /LPF Urine Hyaline Casts 0-2 H /LPF Urine Mucus NEGATIVE /LPF Urine Culture Indicated NO Urine Opiates Screen NEGATIVE NEGATIVE Urine Oxycodone Screen NEGATIVE NEGATIVE Urine Methadone Screen NEGATIVE NEGATIVE Urine Propoxyphene Screen NEGATIVE NEGATIVE Urine Barbiturates Screen NEGATIVE NEGATIVE Ur Tricyclic Antidepressants Screen NEGATIVE NEGATIVE Urine Phencyclidine Screen NEGATIVE NEGATIVE Urine Amphetamines Screen NEGATIVE NEGATIVE Urine Methamphetamines Screen NEGATIVE NEGATIVE Urine Benzodiazepines Screen NEGATIVE NEGATIVE Urine Cocaine Screen NEGATIVE NEGATIVE Urine Cannabinoids Screen NEGATIVE NEGATIVE Influenza Type A (RT-PCR) Not Detected Not Detecte Influenza Type B (RT-PCR) Not Detected Not Detecte SARS-CoV-2 RNA (RT-PCR) Detected H Not Detecte Test 11/26/22 04:50 Range/Units White Blood Count 11.1 H 4.3-11.0 10^3/uL Red Blood Count 4.34 4.30-5.52 10^6/uL Hemoglobin 13.4 13.3-17.7 g/dL Hematocrit 39 L 40-54 % Mean Corpuscular Volume 91 80-99 fL Mean Corpuscular Hemoglobin 31 25-34 pg Mean Corpuscular Hemoglobin Concent 34 32-36 g/dL Red Cell Distribution Width 14.8 H 10.0-14.5 % Platelet Count 276 130-400 10^3/uL Mean Platelet Volume 9.2 9.0-12.2 fL Immature Granulocyte % (Auto) 0 % Neutrophils (%) (Auto) 68 42-75 % Lymphocytes (%) (Auto) 5 L 12-44 % Monocytes (%) (Auto) 27 H 0-12 % Eosinophils (%) (Auto) 0 0-10 % Basophils (%) (Auto) 0 0-10 % Neutrophils # (Auto) 7.5 1.8-7.8 10^3/uL Lymphocytes # (Auto) 0.5 L 1.0-4.0 10^3/uL Monocytes # (Auto) 3.0 H 0.0-1.0 10^3/uL Eosinophils # (Auto) 0.0 0.0-0.3 10^3/uL Basophils # (Auto) 0.0 0.0-0.1 10^3/uL Immature Granulocyte # (Auto) 0.0 0.0-0.1 10^3/uL Sodium Level 136 135-145 MMOL/L Potassium Level 4.1 3.6-5.0 MMOL/L Chloride Level 105 98-107 MMOL/L Carbon Dioxide Level 18 L 21-32 MMOL/L Anion Gap 13 5-14 MMOL/L Blood Urea Nitrogen 37 H 7-18 MG/DL Creatinine 1.39 H 0.60-1.30 MG/DL Estimat Glomerular Filtration Rate 53 BUN/Creatinine Ratio 27 Glucose Level 114 H 70-105 MG/DL Calcium Level 8.7 8.5-10.1 MG/DL Corrected Calcium 8.6 8.5-10.1 MG/DL Phosphorus Level 3.3 2.3-4.7 MG/DL Magnesium Level 1.7 1.6-2.4 MG/DL Total Bilirubin 0.5 0.1-1.0 MG/DL Aspartate Amino Transf (AST/SGOT) 33 5-34 U/L Alanine Aminotransferase (ALT/SGPT) 42 0-55 U/L Alkaline Phosphatase 64 40-136 U/L Troponin I < 0.028 <0.028 NG/ML Total Protein 7.2 6.4-8.2 GM/DL Albumin 4.1 3.2-4.5 GM/DL Triglycerides Level 89 <150 MG/DL Cholesterol Level 129 < 200 MG/DL LDL Cholesterol Direct 69 1-129 MG/DL VLDL Cholesterol 18 5-40 MG/DL HDL Cholesterol 36 L 40-60 MG/DL Physical Exam Physical Exam Vital Signs Vital Signs - First Documented 11/25/22 11/26/22 20:40 02:39 Temp 37.0 Pulse 102 Resp 18 B/P (MAP) 158/60 (92) Pulse Ox 97 O2 Delivery Room Air FiO2 21 Capillary Refill : Less Than 3 Seconds Height, Weight, BMI Height: 5'4.00" Weight: 220lbs. 0.0oz. [id number]; 41.05 BMI Method: General Appearance: No Apparent Distress, WD/WN HEENT: PERRL/EOMI, TMs Normal Neck: Full Range of Motion, Supple Respiratory: No Accessory Muscle Use, No Respiratory Distress Cardiovascular: Regular Rate, Rhythm Neurologic/Psychiatric: Alert Reflexes: 4+ Bicep (R), 4+ Bicep (L), 4+ Tricep (R), 4+ Tricep (L), 4+ Knee (R), 4+ Knee (L), 4+ Ankle (R), 4+ Ankle (L) A/P-Cardiology Admission Diagnosis Acute CVA COVID-19 infection Hypertension Acute on chronic renal insufficiency Assessment/Plan Acute CVA/TIA, significant improvement. CTA of the head reported as multiple area of stenosis, most pronounced in the right posterior cerebral artery. Managed by medical team Started on aspirin and received loading dose of Plavix. COVID-19, positive, could be the reason for the generalized weakness. Managed by medical team. Hypertension, usually difficult to control. On multiple medication. Restart home medication monitor blood pressure 2D echo was done on October 2022 showing left ventricular hypertrophy with ejection fraction 70%, PA pressure 35 to 40 mmHg Hyperlipidemia, maintained on Lipitor 40 mg daily. Continue to monitor lipids Acute on chronic renal insufficiency, continue to monitor renal function. Obesity, BMI 41. COPD/obstructive sleep apnea uses CPAP Mild bilateral carotid stenosis, last ultrasound was done in December 2021 Cardiac CTA findings reviewed BPH. EM LORENZ MD Nov 26, 2022 17:27
[2022-11-26] MEDS ORDERED: TAMSULOSIN 0.4 MG (FLOMAX) CAP PO SCH (18:00)
--- NOTE | 2022-11-26 18:25 | History & Physical-Hospitalist ---
History of Present Illness HPI/Chief Complaint Joel Coreas is a 72 year old male with PMH HTN, HLD, BPH, gout, morbid obesity, who presented with weakness. His reports that he had been working on a fence yesterday. He came home and took a nap. When he tried to get out of bed he was too weak to stand. He does not remember feeling any different. He has not felt abnormal. He has had a cough. He denies fevers. He denies chest pain. He denies shortness of breath. He denies nausea and vomiting. He has had some belly pain. He denies diarrhea. He denies any focal weakness. He denies lightheadedness and dizziness. He denies vision changes. He does not smoke cigarettes or drink alcohol. He has no history of stroke, heart attack, or diabetes. Source: patient, family Exam Limitations: no limitations Date Seen 11/26/22 Time Seen by a Provider: 14:00 Attending Physician Marichuy Rawls Aprn PCP Admitting Physician: Diamante Valdez MD Attending Physician: Adriana Lee MD Referring Physician Date of Admission Nov 26, 2022 at 02:12 Home Medications & Allergies Home Medications Reviewed patient Home Medication Reconciliation performed by pharmacy medication reconciliations medical delivery technician and/or nursing. Patients Allergies have been reviewed. Allergies Allergies Coded Allergies morphine (Verified Allergy, Unknown, 07/28/21) LISTED ON JOSR DISCHARGE ORDERS Past Uztibjo-Haxspn-Eykopp Hx Patient Social History Marrital Status: Employed/Student: retired Tobacco Use?: No Substance use?: No Alcohol Use?: No Pt feels they are or have been: No Immunizations Up To Date Date of Influenza Vaccine: Jul 16, 2022 First/Initial COVID19 Vaccinat: Nov 2020 Second COVID19 Vaccination Keron: December 2020 Tetanus Booster (TDap): Unknown Hepatitis A: No Hepatitis B: No Seasonal Allergies Seasonal Allergies: No Current Status Advance Directives: No Communicates: Verbally Primary Language: Maori Preferred Spoken Language: Maori Is interpretation needed?: No Sensory deficits: Vision impairment Implanted or Applied Medical D: None Past Medical History Surgeries: Orthopedic, Tonsillectomy Sleep Apnea Currently Using CPAP: Yes Hypertension Sexually Transmitted Disease: No HIV/AIDS: No Benign Prostatic Hyperpl Chronic Diarrhea Arthritis Loss of Vision: Bilateral Hearing Impairment: Hard of Hearing Adverse Reaction/Blood Tranf: No (HAS BLOOD WITH NO REACTION) Family Medical History No Pertinent Family Hx Review of Systems Constitutional: weakness EENTM: no symptoms reported Respiratory: no symptoms reported Cardiovascular: no symptoms reported Gastrointestinal: abdominal pain Physical Exam Physical Exam Vital Signs Vital Signs - First Documented 11/25/22 11/26/22 20:40 02:39 Temp 37.0 Pulse 102 Resp 18 B/P (MAP) 158/60 (92) Pulse Ox 97 O2 Delivery Room Air FiO2 21 Capillary Refill : Less Than 3 Seconds Height, Weight, BMI Height: 5'4.00" Weight: 220lbs. 0.0oz. [id number]; 41.05 BMI Method: General Appearance: No Apparent Distress, Obese HEENT: PERRL/EOMI, Pharynx Normal Neck: Normal Inspection, Supple Respiratory: Lungs Clear, Normal Breath Sounds, No Respiratory Distress Cardiovascular: Regular Rate, Rhythm, No Edema, No Murmur Gastrointestinal: Normal Bowel Sounds, Soft, Tenderness Extremity: Normal Inspection, Pedal Edema Neurologic/Psychiatric: Alert, Normal Mood/Affect, funeral director II-XII Norm as Tested, Facial Droop (left), Motor Weakness (bilateral hip and leg strength 4/5) Skin: Normal Color, Warm/Dry Results Results/Procedures Labs Laboratory Tests 11/25/22 20:53 11/26/22 04:50 Patient resulted labs reviewed. Imaging: Reviewed Imaging Report Assessment/Plan Admission Diagnosis TIA Admission Status: Inpatient Order (span 2 midnights) Reason for Inpatient Admission: TIA COVID Debility Assessment and Plan TIA Carotid stenosis HTN HLD Debility Symptoms nearly resolved CT head without acute stroke, prior lacunar infarct CTA with posterior cerebral artery stenosis, moderate carotid stenosis Unable to perform MRI due to size restriction Recent echo with normal EF, LVH, mild pHTN Lipid panel with low HDL ASA, Plavix, Lipitor PT/OT/ST IRU evaluation, accepted, likely discharge tomorrow Cardiology consulted, appreciate assistance Home meds ordered COVID Not hypoxic Monitor symptoms, currently with mild cough JENNIFER IV fluids BPH Flomax Morbid obesity Clinically significant, no acute management needs DVT prophylaxis Lovenox Diagnosis/Problems Diagnosis/Problems (1) TIA (transient ischemic attack) Status: Acute (2) Hypertension Status: Acute Qualifiers: Hypertension type: primary hypertension Qualified Codes: I10 - Essential (primary) hypertension (3) COVID-19 Status: Acute (4) Acute kidney injury Status: Acute (5) Debility Status: Acute (6) HLD (hyperlipidemia) Status: Acute (7) BPH (benign prostatic hyperplasia) Status: Chronic (8) Morbid obesity Status: Chronic ADRIANA LEE MD Nov 26, 2022 18:25
[2022-11-26] MEDS ORDERED: ENOXAPARIN 40 MG/0.4 ML (LOVENOX) SYR SC SCH (18:30)
[2022-11-27] MEDS: CATHETER FLUSH 10 ML SYR IVP SCH (04:09)
[2022-11-27] MEDS: LACTATED RINGERS 1,000 ML IV SCH ×2 (04:09→05:47)
[2022-11-27 04:38] LABS: BASOPHILS % (AUTO) 0 % (0-10); EOSINOPHILS % (AUTO) 0 % (0-10); HEMATOCRIT 41 % (40-54); HEMOGLOBIN 13.9 g/dL (13.3-17.7); LYMPHOCYTES # (AUTO) 0.6 10^3/uL (1.0-4.0); LYMPHOCYTES % (AUTO) 7 % (12-44); MEAN CORPUSCULAR HEMOGLOBIN 31 pg (25-34); MEAN CORPUSCULAR HGB CONC 34 g/dL (32-36); MEAN CORPUSCULAR VOLUME 91 fL (80-99); MEAN PLATELET VOLUME 9.1 fL (9.0-12.2); MONOCYTES # (AUTO) 1.5 10^3/uL (0.0-1.0); MONOCYTES % (AUTO) 17 % (0-12); NEUTROPHILS # (AUTO) 6.7 10^3/uL (1.8-7.8); NEUTROPHILS % (AUTO) 76 % (42-75); PLATELET COUNT 232 10^3/uL (130-400); WHITE BLOOD COUNT 8.9 10^3/uL (4.3-11.0)
[2022-11-27 04:49] LABS: ALBUMIN 3.9 GM/DL (3.2-4.5)
[2022-11-27 04:50] LABS: CALCIUM 8.8 MG/DL (8.5-10.1)
[2022-11-27 04:53] LABS: BILIRUBIN,TOTAL 0.5 MG/DL (0.1-1.0)
[2022-11-27 04:55] LABS: CREATININE SERUM 1.01 MG/DL (0.60-1.30); PHOSPHORUS 2.5 MG/DL (2.3-4.7)
[2022-11-27 04:58] LABS: MAGNESIUM 1.8 MG/DL (1.6-2.4)
--- NOTE | 2022-11-27 07:20 | Cardiology Progress Note ---
Subjective Date Seen by Provider: Nov 27, 2022 Time Seen by Provider: 07:18 Subjective/Events-last exam Patient was seen at bedside, feeling better, still having some weakness. Review of Systems General: No Chills, No Night Sweats; Fatigue; No Malaise, No Appetite, No Other HEENT: No Head Aches, No Visual Changes, No Eye Pain, No Ear Pain, No Dysphasia, No Sinus Congestion, No Post Nasal Drip, No Sore Throat, No Other Pulmonary: No Dyspnea; Cough; No Pleuritic Chest Pain, No Other Cardiovascular: No: Chest Pain, Palpitations, Orthopnea, Paroxysmal Noc. Dyspnea, Edema, Lt Headedness, Other Objective-Cardiology Exam Last Set of Vital Signs Vital Signs 11/26/22 11/27/22 11/27/22 02:39 03:16 06:00 Temp 37.0 Pulse 100 Resp 19 B/P (MAP) 154/101 (118) Pulse Ox 98 O2 Delivery Room Air FiO2 21 I&O Intake and Output 11/26/22 23:59 Intake Total 3595 ml Output Total 3826 ml Balance -231 ml Intake Oral 2195 ml IV Total 1400 ml Output Urine Total 3825 ml Stool Total 1 ml Daily Weight Change No General: Alert, Oriented X3, Cooperative HEENT: Atraumatic Neck: Supple, No JVD, No Thyromegaly Lungs: Normal Air Movement Heart: Regular Rate, No Murmurs Abdomen: No Tenderness, No Masses Extremities: No Clubbing, No Cyanosis, No Tenderness/Swelling Skin: No Rashes, No Breakdown, No Significant Lesion Neuro: Normal Speech, Sensation Intact Psych/Mental Status: Mental Status NL, Mood NL Results Lab Laboratory Tests 11/27/22 04:31 A/P-Cardiology Admission Diagnosis Acute CVA COVID-19 infection Hypertension Acute on chronic renal insufficiency Assessment/Plan Acute CVA/TIA, significant improvement. CTA of the head reported as multiple area of stenosis, most pronounced in the right posterior cerebral artery. Managed by medical team Started on aspirin and received loading dose of Plavix. COVID-19, positive, complaining of cough, no shortness of breath or fever. Managed by medical team. Hypertension, usually difficult to control. On multiple medication. Restart home medication monitor blood pressure 2D echo was done on October 2022 showing left ventricular hypertrophy with ejection fraction 70%, PA pressure 35 to 40 mmHg Hyperlipidemia, maintained on Lipitor 40 mg daily. Continue to monitor lipids Acute on chronic renal insufficiency, continue to monitor renal function. Obesity, BMI 41. COPD/obstructive sleep apnea uses CPAP Mild bilateral carotid stenosis, last ultrasound was done in December 2021 Cardiac CTA findings reviewed, reported multiple area of stenosis most pronounced at the right posterior cerebral artery. BPH. EM LORENZ MD Nov 27, 2022 07:20
[2022-11-27] MEDS ORDERED: ASPI-1238 PO ×3 (08:01→17:21)
[2022-11-27] MEDS ORDERED: CLOP-31 PO ×3 (08:01→17:21)
[2022-11-27] MEDS: ASPIRIN E.C. 81 MG (ECOTRIN) TAB PO SCH (08:50)
[2022-11-27] MEDS: GABAPENTIN 300 MG (NEURONTIN) CAP PO SCH (08:50)
[2022-11-27] MEDS: CLOPIDOGREL 75 MG (PLAVIX) TABLET PO SCH (08:50)
[2022-11-27] MEDS ORDERED: lisINopril 20 MG (PRINIVIL) TABLET PO SCH (09:00)
[2022-11-27] MEDS ORDERED: ENOXAPARIN 40 MG/0.4 ML (LOVENOX) SYR SC SCH (09:00)
[2022-11-27] MEDS ORDERED: NON-FORMULARY MEDICATION 1 EA EA (Diltiazem HCl (Diltiazem ER) 300 MG) PO SCH (09:00)
--- NOTE | 2022-11-27 10:45 | Physical Therapy Daily Note ---
PT Daily Note-Current Subjective Patient agrees to PT. Family present. Patient is currently back at baseline verbally and cognitively. PT to assess gross motor skills. Pain Section J - Health Conditions 1. Rarely or not at all 2. Occasionally 3. Frequently 4. Almost constantly 8. Unable to answer Pain Effect on Sleep: 1 Pain Interference with Therapy: 1 Pain Interference w/Day-to-Day: 1 Mental Status Patient Orientation: Normal For Age Attachments: IV Transfers SCALE: Activities may be completed with or without assistive devices. 7-Aupkexxgnp-ywbvaek completes the activity by him/herself with no assistance from a helper. 5-Set-up or Clean-up Assistance-helper sets up or cleans up; patient completes activity. Mcwilliams assists only prior to or following the activity. 4-Supervision or Touching Assistance-helper provides verbal cues and/or touching/steadying and/or contact guard assistance as patient completes activity. Assistance may be provided throughout the activity or intermittently. 3-Partial/Moderate Assistance-helper does LESS THAN HALF the effort. Mcwilliams lifts, holds or supports trunk or limbs, but provides less than half the effort. 2-Substantial/Maximal Assistance-helper does MORE THAN HALF the effort. Mcwilliams lifts or holds trunk or limbs and provides more than half the effort. 5-Mancrgbhy-hhsklg does ALL the effort. Patient does none of the effort to complete the activity. Or, the assistance of 2 or more helpers is required for the patient to complete the activity. If activity was not attempted, code reason: 7-Patient Refused. 9-Not Applicable-not attempted and the patient did not perform the activity before the current illness, exacerbation or injury. 10-Not Attempted due to Environmental Limitations-(lack of equipment, weather restraints, etc.). 88-Not Attempted due to Medical Conditions or Safety Concerns. Sit to Lying (QC): 6 Lying to Sitting/Side of Bed(Q: 6 Sit to Stand (QC): 6 Gait Training Distance: 150' in room Walk 10 feet (QC): 6 Walk 50 ft with 2 Turns(QC): 6 Walk 150 ft (QC): 6 Gait Assistive Device: None functional gait sequence/does furniture walk but family reports this is his nor mal Assessment Patient is currently at independent PLOF with all gross motor skills. Physician notified of findings. PT to dismiss patient from services at this time. PT Short Term Goals Short Term Goals Time Frame: Dec 08, 2022 Roll Left & Right: 4 Sit to lyin Lying to sitting on side of be: 4 Sit to stand: 3 Chair/jkz-kx-lnuom transfer: 3 Toilet transfer: 3 Walk 10 feet: 3 Walk 50 feet with two turns: 3 PT [employer] Go[employer] Go[employer] [facility] Goals Time Frame: Dec 15, 2022 Roll Left & Right (QC): 6 Sit to Lying (QC): 6 Lying-Sitting on Side/Bed(QC): 6 Sit to Stand (QC): 6 Chair/Pme-ha-Vsxuj Xfer(QC): 6 Toilet Transfer (QC): 6 Walk 10 feet (QC): 6 Walk 50ft with 2 Turns (QC): 6 Walk 150 ft (QC): 6 PT Plan Treatment/Plan Treatment Plan: Discontinue PT Treatment Plan: Bed Mobility, Education, Functional Activity Anthony, Functional Strength, Gait, Safety, Therapeutic Exercise, Transfers Treatment Duration: Dec 15, 2022 Frequency: 6 times per week Estimated Hrs Per Day: .25 hour per day Patient and/or Family Agrees t: Yes Time Time In: 920 Time Out: 936 DATE: Nov 27, 2022 Total Billed Treatment Time: 16 Total Billed Treatment 1 visit FA 16 min MOOKIE GARCÍA PT Nov 27, 2022 10:45
--- NOTE | 2022-11-27 11:27 | Speech Therapy Progress Note ---
Therapy Progress Note Speech pathology attempted cognitive linguistic follow up at 1125. At this time, the patient is receiving care from his RN. ST to re-attempt as able. NIRMAL MIKE Nov 27, 2022 11:27
--- NOTE | 2022-11-27 12:37 | Tele-ICU Progress Note ---
Subjective Date Seen by a Provider: Nov 27, 2022 Time Seen by a Provider: 12:34 Subjective/Events-last exam (Tele-ICU Physician , Progress Note ) Service provided via interactive audio and video telecommunications E-CARE system to a patient admitted to ICU bed in [facility]. Patient is seen today due to persistent need of ICU care Available chart/ vitals / labs / Images reviewed Video assessment done using teleICU camera, rest of exam as per RN Discussed with RN Events overnight : Afebrile hemodynamically stable Respiratory - I/O = Drips: Pressors- no Consultants: Hospital course: A/P TIA -CT head without acute stroke, prior lacunar infarct ( Unable to perform MRI due to size restriction - resume BP meds , with goal of NL BP -Recent echo with normal EF, LVH, mild pHTN -ASA, Plavix, Lipitor Carotid stenosis -CTA with posterior cerebral artery stenosis, moderate carotid stenosis COVID -Not hypoxic, no TX JENNIFER -RESOLVED IV fluids changed to TELEMETRY STAUS _ not follow as consult - CONTINUE TO MONITOR PER USUAL TELE-ICU PROTOCOL DVT prophylaxis Lovenox Plans in collaboration with bedside consultants and IM MDs. Discussed with RN to reach out if any questions or concerns A total of 7 minutes of critical care time was devoted to this patient today, required to treat and/or prevent further deterioration of critical care co ndition ( as above ) . I am remotely monitoring this patient from another state. I am unable to do the bedside exam, and history/physical and pertinent information is taken from other notes in the computer and bedside staff. Sepsis Event Evaluation Height, Weight, BMI Height: 5'4.00" Weight: 220lbs. 0.0oz. [id number]; 40.89 BMI Method: Exam Exam Patient acknowledged, consented, and participated in this virtual visit which was conducted using real time audio/video Vital Signs Date Time Temp Pulse Resp B/P (MAP) Pulse Ox O2 Delivery O2 Flow Rate FiO2 11/27/22 11:24 37.2 11/27/22 10:00 Room Air 11/27/22 08:00 Room Air 11/27/22 07:35 37.6 11/27/22 07:03 95 11/27/22 07:00 99 26 163/80 (107) 92 Room Air 11/27/22 06:00 100 19 154/101 (118) 98 Room Air 11/27/22 04:00 97 17 159/76 (103) 100 Room Air 11/27/22 03:16 37.0 11/27/22 01:00 98 11/27/22 00:00 93 23 154/91 (112) 99 Room Air 11/26/22 23:45 36.4 11/26/22 23:00 94 24 154/72 (105) 98 Room Air 11/26/22 22:00 97 22 154/79 (100) 98 Room Air 11/26/22 21:45 37.8 11/26/22 21:45 37.8 11/26/22 21:00 95 22 164/84 (109) 98 Room Air 11/26/22 20:54 98 11/26/22 20:43 98 32 156/82 (103) 98 Room Air 11/26/22 20:41 38.5 11/26/22 20:08 97 23 162/70 (122) Room Air 11/26/22 20:00 94 33 165/84 (102) Room Air 11/26/22 20:00 38.5 11/26/22 19:50 Room Air 11/26/22 18:00 92 27 133/84 (100) 99 Room Air 11/26/22 17:00 81 25 126/115 (119) 96 Room Air 11/26/22 16:18 37.6 11/26/22 16:00 87 15 160/81 (107) 99 Room Air 11/26/22 15:47 96 Room Air 11/26/22 15:00 88 22 152/71 (98) 97 Room Air 11/26/22 14:00 92 20 140/73 (95) 97 Room Air 11/26/22 13:16 94 11/26/22 13:00 92 20 102/78 (86) 92 Room Air 11/26/22 12:42 95 Room Air I & O 11/27/22 06:59 Intake Total 4595 ml Output Total 2527 ml Balance 2068 ml Height & Weight Height: 5'4.00" Weight: 220lbs. 0.0oz. [id number]; 40.89 BMI Method: General Appearance: No Apparent Distress, Obese HEENT: PERRL/EOMI, Pharynx Normal Neck: Normal Inspection, Supple Respiratory: Lungs Clear, Normal Breath Sounds, No Respiratory Distress Cardiovascular: Regular Rate, Rhythm, No Edema, No Murmur Capillary Refill: Less Than 3 Seconds Gastrointestinal: normal bowel sounds, non tender, soft Extremity: Normal Inspection, Pedal Edema Neurologic/Psychiatric: Alert, Normal Mood/Affect, diver pumper II-XII Norm as Tested, Facial Droop (left), Motor Weakness (bilateral hip and leg strength 4/5) Skin: Normal Color, Warm/Dry Results Lab Laboratory Tests 11/25/22 20:53 11/26/22 04:50 11/27/22 04:31 Assessment/Plan Assessment/Plan 1 MIRANDA PRUITT MD Nov 27, 2022 12:37
--- NOTE | 2022-11-27 12:38 | Discharge Summary ---
Discharge Summary Reconcile Patient Problems Problems Reviewed?: Yes Instructions for Patient Via [employer], Assessment/Instructions See instructions Physician to follow Patient: Rochelle Discharge Diet for Home: Low Sodium Diet Hospital Course Date of Admission: Nov 26, 2022 at 02:12 Admission Diagnosis : Stroke like symptoms Family Physician/Provider: [place] Date of Discharge: 11/27/22 Discharge Diagnosis: Transient ischemic attack Hospital Course: Joel Coreas is a 72 year old male with PMH HTN, HLD, BPH, morbid obesity, who presented with stroke like symptoms. He woke up from a nap with weakness and confusion. His CT head showed an old lacunar infarct but no evidence of acute stroke. He had a CTA head and neck which showed stenosis of several areas inclucing posterior cerebral artery and moderate stenosis of internal carotid artery. He was started on Aspirin and Plavix. He could not have an MRI due to size restrictions. He was continued on Lipitor. He had a recent echo which had normal EF with evidence of LVH. He follows with Dr. Green and he was consulted to assist with his care. They are going to obtain a new blood pressure cuff and keep a log of his blood pressures. He worked with therapy and improved his strength. He was set up with [facility]. He should follow up with Dr. Byrd and Dr. Green as scheduled. He was discharged home in improved, stable condition. Labs and Pending Lab Test: Laboratory Tests 11/27/22 04:31: White Blood Count 8.9, Red Blood Count 4.44, Hemoglobin 13.9, Hematocrit 41, Mean Corpuscular Volume 91, Mean Corpuscular Hemoglobin 31, Mean Corpuscular Hemoglobin Concent 34, Red Cell Distribution Width 15.3H, Platelet Count 232, Mean Platelet Volume 9.1, Immature Granulocyte % (Auto) 0, Neutrophils (%) (Auto) 76H, Lymphocytes (%) (Auto) 7L, Monocytes (%) (Auto) 17H, Eosinophils (%) (Auto) 0, Basophils (%) (Auto) 0, Neutrophils # (Auto) 6.7, Lymphocytes # (Auto) 0.6L, Monocytes # (Auto) 1.5H, Eosinophils # (Auto) 0.0, Basophils # (Auto) 0.0, Immature Granulocyte # (Auto) 0.0, Sodium Level 134L, Potassium Level 4.0, C hloride Level 103, Carbon Dioxide Level 21, Anion Gap 10, Blood Urea Nitrogen 19H, Creatinine 1.01, Estimat Glomerular Filtration Rate 78, BUN/Creatinine Ratio 19, Glucose Level 121H, Calcium Level 8.8, Corrected Calcium 8.9, Phosphorus Level 2.5, Magnesium Level 1.8, Total Bilirubin 0.5, Aspartate Amino Transf (AST/SGOT) 35H, Alanine Aminotransferase (ALT/SGPT) 41, Alkaline Phosphatase 59, Total Protein 7.0, Albumin 3.9 Microbiology 11/26/22 MRSA Screen - Final, Complete MRSA not isolated Home Meds Active Plavix (Clopidogrel Bisulfate) 75 Mg Tablet 75 Mg PO DAILY 30 Days Aspirin EC (Aspirin) 81 Mg Tablet.dr 81 Mg PO DAILY 30 Days Reported Multivitamin 1 Each Tablet 1 Each PO DAILY Allopurinol 300 Mg Tablet 300 Mg PO HS Meloxicam 7.5 Mg Tablet 7.5 Mg PO DAILY Diltiazem ER (Diltiazem HCl) 300 Mg Capsule.er 300 Mg PO DAILY Metoprolol Succinate 25 Mg Tab.er.24h 25 Mg PO HS Flomax (Tamsulosin HCl) 0.4 Mg Cap 0.4 Mg PO HS Neurontin (Gabapentin) 300 Mg Capsule 300 Mg PO DAILY Furosemide 20 Mg Tablet 20 Mg PO DAILY Lisinopril 20 Mg Tablet 20 Mg PO BID Hydrochlorothiazide 25 Mg Tablet 25 Mg PO DAILY Atorvastatin Calcium 40 Mg Tablet 40 Mg PO HS Consulations Cardiology Patient Allergies: Coded Allergies: morphine (Verified Allergy, Unknown, 07/28/21) LISTED ON JOSR DISCHARGE ORDERS Height (Feet): 5 Height (Inches): 4.00 Weight (Pounds): 220 Weight (Ounces): 0.0 Home Health Need/Face to Face Date of Face to Face: Nov 27, 2022 Clinical Findings: Generalized weakness and fatigue, Muscle weakness I have seen Pt [id number]: Yes Discharged To: Home Diagnosis/Conditions: TIA COVID HTN History of CVA BPH Morbid obesity Problems/Diagnosis/Condition: (1) TIA (transient ischemic attack) (2) COVID-19 (3) Hypertension (4) BPH (benign prostatic hyperplasia) (5) Morbid obesity (6) History of lacunar cerebrovascular accident (CVA) Patient is Homebound due to: Muscle weakness Homebound Status Due to the above stated illness, injury or surgical procedure (medical condition or diagnosis) and associated clinical findings, the patient is homebound because of his/her inability to leave home except with aid of a supportive device and/or person AND leaving the home requires a considerable and taxing effort or is medically contraindicated. Pt req the following assistanc: Aid of another person Home Health Nursing Orders Home Health Services Order: Nursing Services, Production Supervisor Trainee-Evaluate & Treat, Physical Therapy-Evaluate & Treat Home Health Infusion Therapy Line Start Date: Nov 25, 2022 Therapy Orders Therapy Orders: OT (must have SN or PT order), Physical Therapy Therapy Specific Orders: Eval assistive deivces, Teach enviro modifications/safety, Gait training, Increase strength/endurance Certify Stmt I certify that this patient is under my care and that I, a nurse practitioner or a physician; a nutrition assistant working with me, had a face to face encounter that - meets the physician face to face encounter requirements with this patient as dated. Discharge Physical Exam General: Alert, Cooperative, No Acute Distress HEENT: Atraumatic, EOMI, Mucous Memb Moist/[place] Lungs: Clear to Auscultation, Normal Air Movement Heart: Regular Rate, No Murmurs Abdomen: Soft, No Tenderness Extremities: No Tenderness/Swelling, Other (pedal edema) Skin: No Rashes, No Significant Lesion Neuro: Normal Speech, Normal Tone Psych/Mental Status: Mental Status NL, Mood NL ADRIANA LEE MD Nov 27, 2022 12:37
[2022-11-27 14:06] VITALS: BP 163/80
== END 2022-11-27 13:50 | disposition home health service (06) | DRG 178 ==
LOC: EDUNIT# 20:35 → ER FS 20:40 → ICU 11-26 02:12
PROVIDERS: ADMIT Family Medicine; ATTEND Internal Medicine
PROC: 8E0ZXY6 Isolation (ICD-10-PCS; principal; 2022-11-26)
DX: U07.1 COVID-19 (principal); G45.9 Transient cerebral ischemic attack, unspecified; N17.9 Acute kidney failure, unspecified; G47.33 Obstructive sleep apnea (adult) (pediatric); J44.9 Chronic obstructive pulmonary disease, unspecified; I12.9 Hypertensive chronic kidney disease with stage 1 through stage 4 chronic kidney disease, or unspecified chronic kidney disease; N18.9 Chronic kidney disease, unspecified; E66.01 Morbid (severe) obesity due to excess calories; N40.0 Benign prostatic hyperplasia without lower urinary tract symptoms; R19.7 Diarrhea, unspecified; M19.91 Primary osteoarthritis, unspecified site; H54.3 Unqualified visual loss, both eyes; H91.90 Unspecified hearing loss, unspecified ear; R29.704 NIHSS score 4; I65.23 Occlusion and stenosis of bilateral carotid arteries; M10.9 Gout, unspecified; Z68.37 Body mass index [BMI] 37.0-37.9, adult; Z88.5 Allergy status to narcotic agent
CPT/HCPCS: 36415; 51702; 70450; 70496; 70498; 71045; 80053; 80061; 80306; 80320; 81000; 83735; 84100; 84155; 84165; 84443; 84484; 85007; 85025; 85027; 85610; 85730; 87081; 87636; 93005; 94760; Q9967

== ENCOUNTER 2022-11-30 12:35 | Emergency (ER) | payer MEDICARE, OTHER ==
[~2022-11-30 12:35] MED LIST changes: +ALLO300T2 PO; +ASPI-1238 PO; +CLOP-31 PO; +DILT300C49 PO; +GABA300C PO; +MELO7.5T46 PO; +MTP25TSR PO; +MULT-1136 PO
[2022-11-30] MEDS ORDERED: KETOROLAC 15 MG/ML VIAL IVP STA (12:44)
[2022-11-30] MEDS ORDERED: ORPHENADRINE 60 MG/2 ML (NORFLEX) AMP (ED ONLY) IVP STA (12:44)
--- NOTE | 2022-11-30 12:47 | ED General ---
General Chief Complaint: General Problems/Pain Stated Complaint: ONE-SIDED WEAKNESS Source of Information: Patient, EMS, Old Records (Reviewed ) History of Present Illness Date Seen by Provider: Nov 30, 2022 Time Seen by Provider: 12:21 Initial Comments 72-year-old male presenting by EMS from home due to complaints of left sided neck and trapezius pain since waking up this morning. He has not tried taking anything for the pain. He has not tried to do anything for the pain. He was discharged on November 27 from [facility] with diagnosis of COVID and stroke. He is to be doing home health and working on strengthening. He has history of labile hypertension. He denies having pain like this previously. Timing/Duration: 4-6 Hours Severity: Moderate Modifying Factors: worse with Movement (Palpation and movement over the left side of his neck and trapezius causes some pain) Associated Systoms: No Chest Pain; Cough; No Diaphoresis, No Fever/Chills, No Headaches, No Loss of Appetite, No Malaise, No Nausea/Vomiting, No Rash, No Seizure, No Shortness of Air, No Syncope; Weakness (Generalized) Allergies and Home Medications Allergies Coded Allergies: morphine (Verified Allergy, Unknown, 07/28/21) LISTED ON [place] DISCHARGE ORDERS Patient Home Medication List Home Medication List Reviewed: Yes Allopurinol (Allopurinol) 300 Mg Tablet, 300 MG PO HS, (Reported) Entered as Reported by: TALI ESPARZA on 11/26/22 1506 Aspirin (Aspirin EC) 81 Mg Tablet.dr, 81 MG PO DAILY Prescribed by: ADRIANA LEE on 11/27/22 1721 Atorvastatin Calcium (Atorvastatin Calcium) 40 Mg Tablet, 40 MG PO HS, (Reported) Entered as Reported by: TALI ESPARZA on 07/28/21 1123 Clopidogrel Bisulfate (Plavix) 75 Mg Tablet, 75 MG PO DAILY Prescribed by: ADRIANA LEE on 11/27/22 1721 Diltiazem HCl (Diltiazem ER) 300 Mg Capsule.er, 300 MG PO DAILY, (Reported) Entered as Reported by: TALI ESPARZA on 11/26/22 1506 Furosemide (Furosemide) 20 Mg Tablet, 20 MG PO DAILY, (Reported) Entered as Reported by: TALI ESPARZA on 11/26/22 1506 Gabapentin (Neurontin) 300 Mg Capsule, 300 MG PO DAILY, (Reported) Entered as Reported by: TALI ESPARZA on 11/26/22 1506 Hydrochlorothiazide (Hydrochlorothiazide) 25 Mg Tablet, 25 MG PO DAILY, (Reported) Entered as Reported by: TALI ESPARZA on 07/31/21 1230 Lisinopril (Lisinopril) 20 Mg Tablet, 20 MG PO BID, (Reported) Entered as Reported by: TALI ESPARZA on 07/31/21 1230 Meloxicam (Meloxicam) 7.5 Mg Tablet, 7.5 MG PO DAILY, (Reported) Entered as Reported by: TALI ESPARZA on 11/26/22 1506 Methocarbamol (Methocarbamol) 750 Mg Tablet, 750 MG PO Q12H PRN for neck pain/muscle spasm Prescribed by: CARIN STOKES on 11/30/22 1551 Metoprolol Succinate (Metoprolol Succinate) 25 Mg Tab.er.24h, 25 MG PO HS, (Reported) Entered as Reported by: TALI ESPARZA on 11/26/22 150 Multivitamin (Multivitamin) 1 Each Tablet, 1 EACH PO DAILY, (Reported) Entered as Reported by: TALI ESPARZA on 11/26/22 1506 Tamsulosin HCl (Flomax) 0.4 Mg Cap, 0.4 MG PO HS, (Reported) Entered as Reported by: TALI ESPARZA on 11/26/22 1506 Discontinued Medications Acetaminophen (Tylenol Extra Strength) 500 Mg Tablet, 500-1,000 MG PO Q8H PRN for PAIN-MILD (1-4), (Reported) Discontinued Reason: No Longer Taking Entered as Reported by: TALI ESPARZA on 07/31/21 1230 Aspirin (Aspirin EC) 81 Mg Tablet.dr, 81 MG PO, (Reported) Discontinued Reason: Prescription changed Entered as Reported by: ADRIANA LEE on 11/27/22 08 Clopidogrel Bisulfate (Plavix) 75 Mg Tablet, 75 MG PO DAILY, (Reported) Discontinued Reason: Prescription changed Entered as Reported by: ADRIANA LEE on 11/27/22 08 Diltiazem HCl (Diltiazem 24Hr Cd) 300 Mg Cap.er.24h, 300 MG PO DAILY, (Reported) Discontinued Reason: No Longer Taking Entered as Reported by: TALI ESPARZA on 07/28/21 1123 Fish Oil/Dha/Epa (Fish Oil 1,200 mg Fish Oil) 1 Each Capsule, 1 EACH PO HS, (Reported) Discontinued Reason: No Longer Taking Entered as Reported by: TALI ESPARZA on 07/31/21 1230 Hydrocodone/Acetaminophen (Hydrocodone-Acetamin 10-325 mg) 1 Each Tablet, 1 EACH PO Q4H PRN for PAIN-MODERATE (5-7) Discontinued Reason: No Longer Taking Prescribed by: RHETT CAMPOS on 08/02/21 1238 Tamsulosin HCl (Flomax) 0.4 Mg Cap, 0.4 MG PO BID Discontinued Reason: No Longer Taking Prescribed by: RHETT CAMPOS on 08/02/21 1238 Turmeric/Turmeric Root Extract (Turmeric 500 mg Capsule) 1 Each Capsule, 1 EACH PO HS, (Reported) Discontinued Reason: No Longer Taking Entered as Reported by: TALI ESPARZA on 07/31/21 1230 Ubidecarenone (Coq-10) 100 Mg Capsule, 100 MG PO HS, (Reported) Discontinued Reason: No Longer Taking Entered as Reported by: TALI ESPARZA on 07/31/21 1230 [Bethanechol Chl] 25 MG TAB, 25 MG PO ACHS Discontinued Reason: No Longer Taking Prescribed by: RHETT CAMPOS on 08/02/21 1238 Review of Systems Review of Systems Constitutional: No chills, No fever; weakness (general) EENTM: no symptoms reported Respiratory: no symptoms reported Cardiovascular: no symptoms reported Gastrointestinal: loss of appetite Genitourinary: no symptoms reported Musculoskeletal: see HPI Skin: No rash Psychiatric/Neurological: Denies Headache Past Cdcpipa-Ujcxxk-Ugfjqf Hx Patient Social History Tobacco Use?: No Use of E-Cig and/or Vaping dev: No Substance use?: No Alcohol Use?: No Pt feels they are or have been: No Immunizations Up To Date First/Initial COVID19 Vaccinat: Nov 2020 Second COVID19 Vaccination Keron: December 2020 Third COVID19 Vaccination Date: Nov 2020 Seasonal Allergies Seasonal Allergies: No Past Medical History Surgery/Hospitalization HX: CVA (Admitted ; HTN; GERD; Gout; High cholesterol; Heart Failure; Neuropathy; BPH Surgeries: Yes Orthopedic, Tonsillectomy Respiratory: No Sleep Apnea Currently Using CPAP: Yes Cardiac: Yes Hypertension Neurological: No Reproductive Disorders: No Sexually Transmitted Disease: No HIV/AIDS: No Benign Prostatic Hyperpl Gastrointestinal: Yes Chronic Diarrhea Musculoskeletal: Yes Arthritis Endocrine: No Loss of Vision: Bilateral Hearing Impairment: Hard of Hearing Cancer: No Adverse Reaction/Blood Tranf: No (HAS BLOOD WITH NO REACTION) Family Medical History No Pertinent Family Hx Physical Exam Vital Signs Vital Signs - First Documented 11/30/22 12:35 Temp 37.4 Pulse 73 Resp 22 B/P (MAP) 130/61 (84) Pulse Ox 94 O2 Delivery Room Air Capillary Refill : Height, Weight, BMI Height: 5'4.00" Weight: 220lbs. 0.0oz. [id number]; 40.89 BMI Method: General Appearance: No Apparent Distress, Obese HEENT: PERRL/EOMI Neck: Full Range of Motion, Normal Inspection, Supple, Tender Lateral (Mild tenderness to palpation over the left side of his neck and trapezius muscle.) Respiratory: Chest Non Tender, Lungs Clear, Normal Breath Sounds, No Accessory Muscle Use, No Respiratory Distress Cardiovascular: Regular Rate, Rhythm, Normal Peripheral Pulses Gastrointestinal: Normal Bowel Sounds, No Pulsatile Mass, Non Tender, Soft Rectal: Deferred Extremity: Normal Capillary Refill, Normal Inspection, No Pedal Edema Neurologic/Psychiatric: Alert, Oriented x3, harp regulator II-XII Norm as Tested Skin: Normal Color, Warm/Dry Progress/Results/Core Measures Suspected Sepsis SIRS Temperature: Pulse: Respiratory Rate: Laboratory Tests 11/30/22 12:41: White Blood Count 18.1H Blood Pressure / Mean: Laboratory Tests 11/30/22 12:41: Creatinine 1.28, INR Comment 0.9, Platelet Count 263, Total Bilirubin 0.7 Results/Orders Lab Results Laboratory Tests Test 11/30/22 12:41 Range/Units White Blood Count 18.1 H 4.3-11.0 10^3/uL Red Blood Count 4.70 4.30-5.52 10^6/uL Hemoglobin 14.7 13.3-17.7 g/dL Hematocrit 42 40-54 % Mean Corpuscular Volume 89 80-99 fL Mean Corpuscular Hemoglobin 31 25-34 pg Mean Corpuscular Hemoglobin Concent 35 32-36 g/dL Red Cell Distribution Width 15.0 H 10.0-14.5 % Platelet Count 263 130-400 10^3/uL Mean Platelet Volume 8.7 L 9.0-12.2 fL Immature Granulocyte % (Auto) 1 % Neutrophils (%) (Auto) 81 H 42-75 % Lymphocytes (%) (Auto) 6 L 12-44 % Monocytes (%) (Auto) 13 H 0-12 % Eosinophils (%) (Auto) 0 0-10 % Basophils (%) (Auto) 0 0-10 % Neutrophils # (Auto) 14.7 H 1.8-7.8 10^3/uL Lymphocytes # (Auto) 1.0 1.0-4.0 10^3/uL Monocytes # (Auto) 2.3 H 0.0-1.0 10^3/uL Eosinophils # (Auto) 0.0 0.0-0.3 10^3/uL Basophils # (Auto) 0.0 0.0-0.1 10^3/uL Immature Granulocyte # (Auto) 0.1 0.0-0.1 10^3/uL Neutrophils % (Manual) 66 % Lymphocytes % (Manual) 7 % Monocytes % (Manual) 14 % Band Neutrophils 13 % Platelet Estimate NORMAL Blood Morphology Comment NORMAL Prothrombin Time 12.8 12.2-14.7 SEC INR Comment 0.9 0.8-1.4 Activated Partial Thromboplast Time 28 24-35 SEC Sodium Level 133 L 135-145 MMOL/L Potassium Level 3.9 3.6-5.0 MMOL/L Chloride Level 93 L 98-107 MMOL/L Carbon Dioxide Level 25 21-32 MMOL/L Anion Gap 15 H 5-14 MMOL/L Blood Urea Nitrogen 31 H 7-18 MG/DL Creatinine 1.28 0.60-1.30 MG/DL Estimat Glomerular Filtration Rate 59 BUN/Creatinine Ratio 24 Glucose Level 137 H 70-105 MG/DL Calcium Level 9.2 8.5-10.1 MG/DL Corrected Calcium 9.1 8.5-10.1 MG/DL Magnesium Level 1.8 1.6-2.4 MG/DL Total Bilirubin 0.7 0.1-1.0 MG/DL Aspartate Amino Transf (AST/SGOT) 19 5-34 U/L Alanine Aminotransferase (ALT/SGPT) 26 0-55 U/L Alkaline Phosphatase 77 40-136 U/L Troponin I < 0.30 <0.30 NG/ML Pro-B-Type Natriuretic Peptide 35.7 <125.0 PG/ML Total Protein 7.7 6.4-8.2 GM/DL Albumin 4.1 3.2-4.5 GM/DL Lipase 32 8-78 U/L My Orders Orders - CARIN STOKES MD Cbc With Automated Diff (11/30/22 12:44) Magnesium (11/30/22 12:44) Chest 1 View Ap/Pa Only (11/30/22 12:44) Ekg Tracing (11/30/22 12:44) Comprehensive Metabolic Panel (11/30/22 12:44) Protime With Inr (11/30/22 12:44) Partial Thromboplastin Time (11/30/22 12:44) O2 (11/30/22 12:44) Monitor-Rhythm Ecg Trace Only (11/30/22 12:44) Ed Iv/Invasive Line Start (11/30/22 12:44) Lipase (11/30/22 12:44) Troponin I Fs (11/30/22 12:44) Probnp Fs (11/30/22 12:44) Orphenadrine Inj (Ed Only) (Norflex Inje (11/30/22 12:44) Ketorolac Injection (Toradol Injection) (11/30/22 12:44) Manual Differential (11/30/22 12:41) Ns Iv 1000 Ml (Sodium Chloride 0.9%) (11/30/22 13:58) Ct Angio Head/Neck (11/30/22 13:58) Iohexol Injection (Omnipaque 350 Mg/Ml 1 (11/30/22 14:15) Received Contrast (Hold Metformin- Contr (11/30/22 14:15) Ns (Ivpb) (Sodium Chloride 0.9% Ivpb Bag (11/30/22 14:15) Vital Signs/I&O 11/30/22 11/30/22 12:35 15:52 Temp 37.4 37.4 Pulse 73 63 Resp 22 22 B/P (MAP) 130/61 (84) 140/62 Pulse Ox 94 96 O2 Delivery Room Air Room Air Capillary Refill : Progress Note #1: Progress Note Potential diagnosis of myofascial strain of the neck, shoulder pain, cervical radiculopathy, pneumonia, electrolyte imbalance, dehydration. Obtain blood for testing of the complete blood count, comprehensive metabolic profile, troponin, proBNP, clotting factors, lipase. EMS had obtained a peripheral IV access in route to the ED. Administer Toradol 15 mg IV with Norflex 60 mg IV for pain and symptoms. Progress Note #2: Progress Note Complete blood count does show elevated white blood cells up to 18.1 thousand with continued increased monocyte count. This could be related back to his COVID and stress reaction as well as mild dehydration. On my interpretation of his 1 view chest x-ray there is no infiltrate seen on his chest x-ray to indicate any pneumonia from his COVID. His comprehensive metabolic profile showed mild elevation of his BUN and creatinine to go along with some dehydration. His creatinine was up to 1.28. His cardiac enzymes of troponin an d proBNP were not elevated. His troponin was less than 0.3. His lipase was normal at 32. On my interpretation of his electrocardiogram he appeared stable from his recent admission and did not show acute ischemic changes. On recheck of the patient he stated that his pain was doing better but the family pointed out that his pain was not all along the trapezius as it was when he showed me where he hurt it was on the side of his neck and down on the front part of his upper chest on the left side. If this was heart related his troponin should have been elevated by now since the pains been there since he woke up early this morning and spent over 6 hours of constant pain. It is reproducible by palpation so there certainly seems to be a muscle component as well. I reassured the patient and family that the stenosis or blockages in the carotid would not cause pain. They were concerned that he had something change from his recent admission and wanted imaging to look at his neck and head. I advised him that I could order a repeat CT angiogram of the head and neck looking for any acute changes from his recent imaging. In the meantime would also had normal saline 1 L IV fluid bolus to try and help with hydration and to help flush his kidneys from the contrast he will receive for the CT angiogram. Progress Note #3: Progress Note The CT angiogram of the head and neck continue to show multiple areas of stenosis and narrowing but no definite ischemic changes in his brain other than the chronic old lacunar area. He had collateral blood flow to help with getting blood to his brain. Encouraged to continue on the Plavix and aspirin. Follow- up with Dr. Green and his primary care doctor. Will prescribe muscle relaxer in a low dose to try and help with his neck pain as it seems to be musculoskeletal in nature. They can also apply Elliot Arauz or Salonpas patches, but advised to avoid massaging his carotid or applying a lot of pressure as it could dislodge part of his plaques from the lamar of carotid. May try over the counter Acetaminophen for pain as well. Alternate ice and heat to help with neck pain. ECG Initial ECG Impression Date: Nov 30, 2022 Initial ECG Impression Time: 13:07 Initial ECG Rate: 66 Initial ECG Rhythm: Normal Sinus Initial ECG Comparisson: Unchanged Comment My personal interpretation of the electrocardiogram shows sinus rhythm with a heart rate of 66 bpm. TX interval [address] elevation. QT interval 382 ms with a QTc interval 396 ms. Overall appears similar to tracing from November 25, 2022 other than rate is now improved from tachycardia and TX interval is under 200 ms. Diagnostic Imaging Diagonstic Imaging: Xray Plain Films/CT/US/NM/MRI: chest Comments NAME: RAMSEY RAMIREZ [employer] REC#: [id number] PT STATUS: REG ER : 1950 PHYSICIAN: CARIN STOKES MD ADMIT DATE: 11/30/22/ER FS Draft Date of Exam:11/30/22 CHEST 1 VIEW AP/PA ONLY INDICATION: COVID infection and chest pain. AP upright portable view of the chest is obtained with comparison made to study of 11/25/2022 There is mild cardiomegaly. Mild linear atelectasis or scarring is seen in left lung base. There is no consolidation, pneumothorax or other adverse change. There is apparent monitoring lead projecting over the lower central chest. IMPRESSION: Slight left basilar atelectasis and/or scarring without other evidence of acute abnormality. Dictated on workstation # [id number] Dict: 11/30/22 1301 Trans: 11/30/22 130[address] [facility] [id number] Interpreted by: LAZARO BOSS MD Electronically signed by: Reviewed: Reviewed by Me Diagonstic Imaging: CT (Angiography) Plain Films/CT/US/NM/MRI: head (and neck) Comments NAME: RAMSEY RAMIREZ [employer] REC#: [id number] PT STATUS: REG ER : 1950 PHYSICIAN: CARIN STOKES MD ADMIT DATE: 11/30/22/ER FS Draft Date of Exam:11/30/22 CT ANGIO HEAD/NECK PROCEDURE: CT angiography of the head and CT angiography of the neck with and without contrast. TECHNIQUE: Contiguous noncontrast images were obtained from the skull base through the vertex. After intravenous contrast administration, helical CT angiography of the neck was performed. Source data was reformatted into 3D MIP projections. Delayed post contrast acquisition was also obtained. Auto Exposure Controls were utilized during the CT exam to meet ALARA standards for radiation dose reduction. INDICATION: Left-sided neck pain. Altered mental status. Comparison: 11/25/2022. FINDINGS: CTA Neck: The visualized portions of the aortic arch demonstrate no evidence of aneurysm or dissection. There is conventional branching pattern of the great vessels of the aorta. The brachiocephalic artery is normal in course and caliber. The right and left common carotid origins are unremarkable. The origin of the left subclavian artery is patent. The common carotid arteries and internal carotid arteries demonstrate a tortuous course. There is calcified atherosclerotic plaque in the bilateral carotid bulbs and proximal internal carotid arteries without flow-limiting stenosis. No evidence of dissection in the carotid systems. The external carotid arteries are patent and unremarkable. The vertebral arteries are codominant. The origin of the right vertebral artery is seen and is unremarkable. The origin of the left vertebral artery is seen and is unremarkable. There is no focal stenosis seen within the neck. There is no dissection. The vertebral arteries are well visualized to up to the level of the basilar artery. The osseous structures of the cervical spine are unremarkable. Included views through the lung apices demonstrate no focal consolidation. CTA brain: Atherosclerotic plaque is seen in the lamar of the bilateral terminal internal carotid arteries without significant stenosis. There is stenosis of 70-80% in an M2 branch of the left MCA. There is high-grade stenosis of the P1 segment of the left KNEE BOLTER of approximately 90%. Approximately 80-90% stenosis is seen in the P1 segment of the right KNEE BOLTER. No stenosis is seen in the bilateral anterior cerebral arteries. No evidence of aneurysm the nulato of Mix. In the posterior circulation, both of the vertebral arteries demonstrate normal opacification. The vertebral arteries are codominant. Both the right and left PICA arteries are identified. The basilar artery is normal in course and caliber. The terminal branch vessels including the superior cerebellar arteries unremarkable. CT head: No large acute territorial ischemia, mass, or hemorrhage. No midline shift or mass effect. The ventricles, cortical sulci, and basilar cisterns are patent and unremarkable. The calvarium is intact. Mucosal thickening is seen in the paranasal sinuses. The mastoid air cells are clear. IMPRESSION: 1. Multiple areas of stenosis in the nulato of Mix due to intracranial atherosclerotic plaque. These are most pronounced in an M2 branch of the left MCA and bilateral P1 segments. No large vessel occlusion. No aneurysm. 2. No stenosis or dissection in the bilateral carotid and vertebral arteries. 3. No large acute territorial ischemia. No acute hemorrhage or mass. If symptoms persist consider MRI of the brain to further evaluate. Dictated on workstation # [id number] Dict: 11/30/22 1446 Trans: 11/30/22 1457 [facility] [id number] Interpreted by: ISHAAN HOLDER DO Electronically signed by: Reviewed: Reviewed by Me (I personally reviewed the radiologist report at [id number]) Departure Impression Primary Impression: Neck pain on left side Additional Impressions: Internal carotid artery stenosis Qualified Codes: I65.23 - Occlusion and stenosis of bilateral carotid arteries Generalized weakness Disposition: 01 HOME, SELF-CARE Condition: Stable Departure-Patient Inst. Decision time for Depature: 15:48 Referrals: CLARY RIVERA APRN (PCP) Primary Care Physician [facility] (Family) Primary Care Physician Patient Instructions: Neck Pain ED, Muscle Strain ED, Fatigue ED, Weakness ED Add. Discharge Instructions: Try the low dose muscle relaxer to help with neck pain. You may also try ice alternating with heat to the neck to help with pain. Check with Dr. Green about the carotid narrowing and your stress test. If worsening or new problems we can look again to see if anything else new was showing up. Try drinking plenty of fluids and hydration. Consider protein nutrition shakes to help with the oral intake. All discharge instructions reviewed with patient and/or family. Voiced understanding. Scripts Methocarbamol (Methocarbamol) 750 Mg Tablet 750 MG PO Q12H PRN for neck pain/muscle spasm for 7 Days, #14 TAB 0 Refills Prov: ENYART,CARIN E MD 11/30/22 CARIN STOKES MD Nov 30, 2022 12:47
[2022-11-30 12:55] LABS: BASOPHILS % (AUTO) 0 % (0-10); EOSINOPHILS % (AUTO) 0 % (0-10); HEMATOCRIT 42 % (40-54); HEMOGLOBIN 14.7 g/dL (13.3-17.7); LYMPHOCYTES % (AUTO) 6 % (12-44); MEAN CORPUSCULAR HEMOGLOBIN 31 pg (25-34); MEAN CORPUSCULAR HGB CONC 35 g/dL (32-36); MEAN CORPUSCULAR VOLUME 89 fL (80-99); MEAN PLATELET VOLUME 8.7 fL (9.0-12.2); MONOCYTES # (AUTO) 2.3 10^3/uL (0.0-1.0); MONOCYTES % (AUTO) 13 % (0-12); NEUTROPHILS # (AUTO) 14.7 10^3/uL (1.8-7.8); NEUTROPHILS % (AUTO) 81 % (42-75); PLATELET COUNT 263 10^3/uL (130-400); WHITE BLOOD COUNT 18.1 10^3/uL (4.3-11.0)
--- NOTE | 2022-11-30 13:03 | Diagnostic Imaging Report ---
INDICATION: COVID infection and chest pain. AP upright portable view of the chest is obtained with comparison made to study of 11/25/2022 There is mild cardiomegaly. Mild linear atelectasis or scarring is seen in left lung base. There is no consolidation, pneumothorax or other adverse change. There is apparent monitoring lead projecting over the lower central chest. IMPRESSION: Slight left basilar atelectasis and/or scarring without other evidence of acute abnormality. Dictated by: Dictated on workstation # [id number]
[2022-11-30 13:14] LABS: INR 0.9 (0.8-1.4); PROTHROMBIN TIME PATIENT 12.8 SEC (12.2-14.7)
[2022-11-30 13:16] LABS: ALBUMIN 4.1 GM/DL (3.2-4.5); BILIRUBIN,TOTAL 0.7 MG/DL (0.1-1.0); CALCIUM 9.2 MG/DL (8.5-10.1); CREATININE SERUM 1.28 MG/DL (0.60-1.30); MAGNESIUM 1.8 MG/DL (1.6-2.4); POTASSIUM 3.9 MMOL/L (3.6-5.0); TOTAL PROTEIN 7.7 GM/DL (6.4-8.2)
[2022-11-30 13:28] LABS: BAND NEUTROPHILS 13 %; LYMPHOCYTES % (MANUAL) 7 %; MONOCYTES % (MANUAL) 14 %; NEUTROPHILS % (MANUAL) 66 %; PLATELET ESTIMATE NORMAL; RBC MORPH NORMAL
[2022-11-30] MEDS ORDERED: NS IV 1000 ML 1,000 ML IV STA (13:58)
[2022-11-30] MEDS ORDERED: HOLD METFORMIN - RECEIVED CONTRAST 20 ML VIAL IV SCH (14:15)
[2022-11-30] MEDS ORDERED: NS 100 ML (IVPB) BAG IV ONE (14:15)
[2022-11-30] MEDS ORDERED: IOHEXOL 350 MG/ML 100 ML (OMNIPAQUE 350) VIAL IV ONE (14:15)
--- NOTE | 2022-11-30 14:57 | Diagnostic Imaging Report ---
PROCEDURE: CT angiography of the head and CT angiography of the neck with and without contrast. TECHNIQUE: Contiguous noncontrast images were obtained from the skull base through the vertex. After intravenous contrast administration, helical CT angiography of the neck was performed. Source data was reformatted into 3D MIP projections. Delayed post contrast acquisition was also obtained. Auto Exposure Controls were utilized during the CT exam to meet ALARA standards for radiation dose reduction. INDICATION: Left-sided neck pain. Altered mental status. Comparison: 11/25/2022. FINDINGS: CTA Neck: The visualized portions of the aortic arch demonstrate no evidence of aneurysm or dissection. There is conventional branching pattern of the great vessels of the aorta. The brachiocephalic artery is normal in course and caliber. The right and left common carotid origins are unremarkable. The origin of the left subclavian artery is patent. The common carotid arteries and internal carotid arteries demonstrate a tortuous course. There is calcified atherosclerotic plaque in the bilateral carotid bulbs and proximal internal carotid arteries without flow-limiting stenosis. No evidence of dissection in the carotid systems. The external carotid arteries are patent and unremarkable. The vertebral arteries are codominant. The origin of the right vertebral artery is seen and is unremarkable. The origin of the left vertebral artery is seen and is unremarkable. There is no focal stenosis seen within the neck. There is no dissection. The vertebral arteries are well visualized to up to the level of the basilar artery. The osseous structures of the cervical spine are unremarkable. Included views through the lung apices demonstrate no focal consolidation. CTA brain: Atherosclerotic plaque is seen in the lamar of the bilateral terminal internal carotid arteries without significant stenosis. There is stenosis of 70-80% in an M2 branch of the left MCA. There is high-grade stenosis of the P1 segment of the left LEHR OPERATOR of approximately 90%. Approximately 80-90% stenosis is seen in the P1 segment of the right LEHR OPERATOR. No stenosis is seen in the bilateral anterior cerebral arteries. No evidence of aneurysm the alutiiq of Mix. In the posterior circulation, both of the vertebral arteries demonstrate normal opacification. The vertebral arteries are codominant. Both the right and left PICA arteries are identified. The basilar artery is normal in course and caliber. The terminal branch vessels including the superior cerebellar arteries unremarkable. CT head: No large acute territorial ischemia, mass, or hemorrhage. No midline shift or mass effect. The ventricles, cortical sulci, and basilar cisterns are patent and unremarkable. The calvarium is intact. Mucosal thickening is seen in the paranasal sinuses. The mastoid air cells are clear. IMPRESSION: 1. Multiple areas of stenosis in the alutiiq of Mix due to intracranial atherosclerotic plaque. These are most pronounced in an M2 branch of the left MCA and bilateral P1 segments. No large vessel occlusion. No aneurysm. 2. No stenosis or dissection in the bilateral carotid and vertebral arteries. 3. No large acute territorial ischemia. No acute hemorrhage or mass. If symptoms persist consider MRI of the brain to further evaluate. Dictated by: Dictated on workstation # [id number]
[2022-11-30] MEDS ORDERED: METH-732 PO (15:51)
[2022-11-30 15:52] VITALS: BP 140/62
== END 2022-11-30 15:54 | disposition home or self-care (01) ==
LOC: ER FS 12:35 → EDUNIT# 12:35 → ER FS 15:54
DX: I65.22 Occlusion and stenosis of left carotid artery (principal); I11.0 Hypertensive heart disease with heart failure; I50.9 Heart failure, unspecified; D72.829 Elevated white blood cell count, unspecified; E86.0 Dehydration; R79.89 Other specified abnormal findings of blood chemistry
CPT/HCPCS: 36415; 70496; 70498; 71045; 80053; 83690; 83735; 83880; 84484; 85007; 85027; 85610; 85730; 93005; 93041; Q9967

== ENCOUNTER → 2022-12-03 | Outpatient (CLI) | payer MEDICARE, OTHER ==
[~2022-12-03] MED LIST changes: +CATHETER FLUSH 10 ML SYR IVP PRN; +METH-732 PO; +REGADENOSON 0.4 MG/5 ML SYR (LEXISCAN) IV ONE
[2022-12-03 09:26] VITALS: BP 141/81
--- NOTE | 2022-12-03 11:44 | Cardiology Stress Test Report ---
Stress Test Report Date of Procedure/Referring: Date of Procedure: Dec 03, 2022 PCP Marichuy Rawls Aprn Admitting Physician Admitting Physician: Attending Physician: Em Green MD Indications: CP Baseline Heart Rate: 81 Baseline Blood Pressure: Blood Pressure Systolic: 141 Blood Pressure Diastolic: 81 Baseline Vitals Vital Signs Date Time Temp Pulse Resp B/P (MAP) Pulse Ox O2 Delivery O2 Flow Rate FiO2 12/03/22 09:26 81 141/81 (101) Baseline EKG: Baseline EKG: NSR Summary After explaining the procedure to the patient, he signed a consent and then brought to the stress nuclear laboratory. Patient received 0.4 mg Lexiscan for stress test, ECG, heart rate and blood pressure were monitored continuously. Resting and stress dose of radio tracer were injected, imaging was acquired and reviewed in short axis, horizontal long axis and vertical long axis views. TID: 1.12 SSS: 5 SDS: 2 EF: 74 Patient tolerated Lexiscan well Motion artifact, overall there is no significant ischemia or infarction on SPECT images Normal left ventricular size, ejection fraction 74% Copy Copies To 1: [facility] [place] Dec 03, 2022 11:44
== END ==
LOC: CARD 07:41
PROVIDERS: ATTEND Internal Medicine Cardiovascular Disease
DX: I25.10 Atherosclerotic heart disease of native coronary artery without angina pectoris (principal); I10 Essential (primary) hypertension
CPT/HCPCS: 78452; 93017; A9502